=== PATIENT | female | born 1960 | race Caucasian/White ===

== ENCOUNTER 2016-10-25 09:13 | Emergency (ER) | payer BC ==
[2016-10-25] MEDS ORDERED: Acetaminophen/HYDROcodone 325-7.5 MG Tab PO ONE (09:30)
--- NOTE | 2016-10-25 09:34 | EDM.PDOC ---
ED HPI GENERAL MEDICAL PROBLEM - General Chief Complaint: General Stated Complaint: PT SPOKE WITH NURSE Time Seen by Provider: 10/25/16 09:17 - History of Present Illness INITIAL COMMENTS - FREE TEXT/NARRATIVE: HISTORY AND PHYSICAL: History of present illness: The patient is a 55-year-old female with a history of hypertension and anxiety who presents from [facility] for further evaluation of a left lower leg cellulitis. The patient was initially seen at the clinic on October 21 after she had fallen and scraped her left lower leg while walking her dog and sustained an abrasion to that region. She says this occurred over weekend, October 17. At that time she had a CBC a wound culture as well as a CRP. Patient was started on Keflex after being given Rocephin at the clinic. The patient re-presented today for checkup and discussion of lab results. On her lab tests she had a normal CRP and a WBC count of 6.2 but her platelet count was 75. The provider at the clinic was concerned about the platelet count but also concerned about the fact that the cellulitis seems to worsen and it seems to look more like a hematoma as well as a nonhealing cellulitis. The patient complains of persistent pain in the region but not in the calf itself and there is no distal neurovascular changes and no streaking up her leg. According to the patient and the provider's notes she initially had a lump on the rushing when this initially happened. The patient complains of persistent pain but has had no fevers or other systemic lanes. She has just noticed some darkish bruising at her heel that she wanted me to evaluate. Review of systems: As per history of present illness and below otherwise all systems reviewed and negative. Past medical history: As per history of present illness and as reviewed below otherwise noncontributory. Surgical history: As per history of present illness and as reviewed below otherwise noncontributory. Social history: No reported history of drug or alcohol abuse. Family history: As per history of present illness and as reviewed below otherwise noncontributory. Physical exam: Gen.: Well-developed well-nourished female who is nontoxic and vital signs of been reviewed by me. She ambulated into the ED without assistance HEENT: Atraumatic, normocephalic, negative for conjunctival pallor or scleral icterus, mucous membranes moist, throat clear, neck supple, nontender, trachea midline. Lungs: Clear to auscultation, breath sounds equal bilaterally, chest nontender. Heart: S1S2, regular rate and rhythm no overt murmurs Abdomen: Soft, nondistended, nontender. NABS Pelvis: Stable nontender. Genitourinary: Deferred. Rectal: Deferred. Extremities: Atraumatic with full range of motion of all extremities with the exception of the left lower leg where there is a visible oval area of resolving ecchymosis and erythema. The total size of this area is 20 x 11 cm it is not circumferential and there is no calf tenderness swelling or defects. There is no palpable bony deformities but there is diffuse tenderness in this area. Within the larger area there is a 13 x 9 cm area of more raised soft tissue which is exquisitely tender but not fluctuant and feels almost like a resolving hematoma. There is some dependent ecchymosis at the heel medially consistent with the hematoma history. There is no neurovascular changes in the leg and no streaking up the leg. There is no groin adenopathy appreciated. The legs are, negative for cords or calf pain. Neurovascular unremarkable. Neuro: Awake, alert, oriented. Cranial nerves II through XII unremarkable. Cerebellum unremarkable. Motor and sensory unremarkable throughout. Exam nonfocal. Diagnostics: CBC INR x-ray of the left lower leg lactic acid soft tissue ultrasound of the leg area Therapeutics: Seth--the patient does not have an allergy she only gets nauseated or vomits with this. She tolerated the pill here well in the ED Please note that the platelet count today has improved to 99 from 75. Patient is aware of all testing results and that likely the cause of all of the redness and swelling is likely due to a hematoma which is resolving. The ultrasound does not indicate any fluid collection I've advised her to stop taking the Keflex she is on and switch to Bactrim and to follow-up with Dr. Yeung for resolution of the symptoms as well as a repeat platelet count suite. Advised on reasons to return to ER. I will give her some tramadol for home Impression: Left lower extremity hematoma/cellulitis improving Definitive disposition and diagnosis as appropriate pending reevaluation and review of above. Left Lower Leg Pain Score (Numeric/FACES): 6 - Related Data Allergies Allergy/AdvReac Type Severity Reaction Status Date / Time hydrocodone Allergy Nausea and Verified 10/25/16 09:25 Vomiting egg or chicken derived drugs Allergy Abdominal Uncoded 06/11/15 09:44 Pain Home Meds: Home Meds Aspirin [Adult Low Dose Aspirin EC] 1 tab PO DAILY 06/11/15 [History] Atenolol 1 tab PO DAILY 06/11/15 [History] ClonazePAM [KlonoPIN] 1 tab PO BID PRN 06/11/15 [History] [place]-3/DHA/Epa/Fish Oil [[place] 3 500 Softgel] 1,000 mg PO TID 06/11/15 [History ] Vit D3 & K/Berberine HCl/Hops [Ostera] 1 tab PO DAILY 06/11/15 [History] buPROPion [Wellbutrin XL] 150 mg PO DAILY 10/25/16 [History] Past Medical History HEENT History: Reports: None Other HEENT History: wears glasses Cardiovascular History: Reports: Stents Respiratory History: Reports: None Gastrointestinal History: Reports: GERD Genitourinary History: Reports: None 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: Reports: 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 Musculoskeletal History: Reports: Fibromyalgia Neurological History: Reports: None Psychiatric History: Reports: Anxiety, Depression Endocrine/Metabolic History: Reports: None Hematologic History: Reports: None Immunologic History: Reports: None Oncologic (Cancer) History: Reports: None Dermatologic History: Reports: None - Infectious Disease History Infectious Disease History: Reports: Chicken Pox - Past Surgical History Head Surgeries/Procedures: Reports: None Cardiovascular Surgical History: Reports: Coronary Artery Stent, Other (See Below) Respiratory Surgical History: Reports: None GI Surgical History: Reports: Appendectomy Female Surgical History: Reports: Hysterectomy Endocrine Surgical History: Reports: None Neurological Surgical History: Reports: None Musculoskeletal Surgical History: Reports: Carpal Tunnel, Other (See Below) Oncologic Surgical History: Reports: None Dermatological Surgical History: Reports: None Social & Family History - Family History Family Medical History: Noncontributory - Tobacco Use Smoking Status *Q: Current Every Day Smoker Years of Tobacco use: 40 Packs/Tins Daily: 1 - Caffeine Use Caffeine Use: Reports: Coffee - Alcohol Use Days Per Week of Alcohol Use: 7 Number of Drinks Per Day: 1 Total Drinks Per Week: 7 - Recreational Drug Use Recreational Drug Use: No ED ROS GENERAL - Review of Systems Review Of Systems: ROS reveals no pertinent complaints other than HPI. ED EXAM, GENERAL - Physical Exam Exam: See Below (See dictation) Course - Vital Signs Last Recorded V/S: Last Vital Signs Temp 36.7 C 10/25/16 09:19 Pulse 78 10/25/16 09:19 Resp 18 10/25/16 09:19 BP 187/101 H 10/25/16 09:19 Pulse Ox 100 10/25/16 09:19 - Orders/Labs/Meds Labs: Laboratory Tests 10/25/16 10/25/16 10/25/16 Range/Units 09:41 09:41 09:41 WBC 4.39 (4.0-11.0) K/uL RBC 4.18 L (4.30-5.90) M/uL Hgb 14.5 (12.0-16.0) g/dL Hct 39.9 (36.0-46.0) % MCV 95.5 (80.0-98.0) fL MCH 34.7 H (27.0-32.0) pg MCHC 36.3 (31.0-37.0) g/dL RDW Std Deviation 41.2 (28.0-62.0) fl RDW Coeff of Haley 12 (11.0-15.0) % Plt Count 99 L (150-400) K/uL MPV 10.50 (7.40-12.00) fL Neut % (Auto) 57.4 (48.0-80.0) % Lymph % (Auto) 35.8 (16.0-40.0) % [place] % (Auto) 5.0 (0.0-15.0) % Eos % (Auto) 1.1 (0.0-7.0) % Baso % (Auto) 0.7 (0.0-1.5) % Neut # (Auto) 2.5 (1.4-5.7) K/uL Lymph # (Auto) 1.6 (0.6-2.4) K/uL [place] # (Auto) 0.2 (0.0-0.8) K/uL Eos # (Auto) 0.1 (0.0-0.7) K/uL Baso # (Auto) 0.0 (0.0-0.1) K/uL Nucleated RBC % 0.0 /100WBC Nucleated RBCs # 0 K/uL INR 1.18 H (0.86-1.11) Lactate 1.2 (0.20-2.00) mmol/L Meds: Medications Discontinued Medications Generic Name Dose Route Start Last Admin Trade Name Poncho PRN Reason Stop Dose Admin Hydrocodone Bitart/Acetaminophen 1 tab 10/25/16 09:30 10/25/16 09:35 Seth 325-7.5 Mg PO 10/25/16 09:31 1 tab ONETIME ONE Administration Departure - Departure Time of Disposition: 10:56 Disposition: Home, Self-Care 01 Condition: Good Clinical Impression: Left leg cellulitis Contusion of left leg Qualifiers: Encounter type: initial encounter Qualified Code(s): S80.12XA - Contusion of left lower leg, initial encounter - Discharge Information Referrals: London Yeung MD [Primary Care Provider] - Forms: ED Department Discharge Additional Instructions: The following information is given to patients seen in the emergency department who are being discharged to home. This information is to outline your options for follow-up care. We provide all patients seen in our emergency department with a follow-up referral. The need for follow-up, as well as the timing and circumstances, are variable depending upon the specifics of your emergency department visit. If you don't have a primary care physician on staff, we will provide you with a referral. We always advise you to contact your personal physician following an emergency department visit to inform them of the circumstance of the visit and for follow-up with them and/or the need for any referrals to a consulting specialist. The emergency department will also refer you to a specialist when appropriate. This referral assures that you have the opportunity for followup care with a specialist. All of these measure are taken in an effort to provide you with optimal care, which includes your followup. Under all circumstances we always encourage you to contact your private physician who remains a resource for coordinating your care. When calling for followup care, please make the office aware that this follow-up is from your recent emergency room visit. If for any reason you are refused follow-up, please contact the [facility] emergency department at and ask to speak to the emergency department charge nurse. [address] [place] [address] Please call and follow-up with Dr. Yeung in the clinic as we discussed to recheck your progress as well as to repeat a platelet count. Please return to ER as needed and as discussed. Please stop taking the Keflex you're on and switch to Bactrim as prescribed and use the tramadol as needed for pain. Elevate and ice as needed
--- NOTE | 2016-10-25 10:23 | CR ---
EXAMINATION: Left tibia and fibula HISTORY: Rule out gas COMPARISON: None TECHNIQUE: 2 views FINDINGS/IMPRESSION: There is no acute osseous abnormality, dislocation, or fracture. Bone mineraliza tion and joint spaces appear grossly preserved. No subcutaneous gas identified.
--- NOTE | 2016-10-25 10:30 | US ---
EXAMINATION: Nonvascular left lower extremity ultrasound HISTORY: Evaluate for abscess COMPARISON: Radiograph from the same day TECHNIQUE: Grayscale and color Doppler images obtained within the region of concern. FINDINGS: There is mild skin thickening with underlying subcutaneous edema. No organized fluid collec tion or abscess. No significantly increased color Doppler flow. IMPRESSION: 1. Mild subcutaneous edema otherwise unremarkable ultrasound.
[2016-10-25 11:17] VITALS: BP 101/59
== END 2016-10-25 11:16 | disposition home or self-care (01) ==
LOC: MW.ED 09:13
DX: S80.12XA Contusion of left lower leg, initial encounter (principal); L03.116 Cellulitis of left lower limb; I10 Essential (primary) hypertension; F41.9 Anxiety disorder, unspecified; K21.9 Gastro-esophageal reflux disease without esophagitis; F17.210 Nicotine dependence, cigarettes, uncomplicated; Z90.710 Acquired absence of both cervix and uterus; Z88.5 Allergy status to narcotic agent; Z79.82 Long term (current) use of aspirin; X58.XXXA Exposure to other specified factors, initial encounter
CPT/HCPCS: 36415; 73590; 76881; 83605; 85025; 85610; 99283; A9270

== ENCOUNTER 2017-08-23 01:25 | Emergency (ER) | payer BC ==
[2017-08-23] MEDS ORDERED: Sodium Chloride 0.9% 10 ML Syringe FLUSH PRN (01:43)
[2017-08-23] MEDS ORDERED: Sodium Chloride 0.9% 2.5 ML Syringe FLUSH PRN (01:43)
--- NOTE | 2017-08-23 01:49 | EDM.PDOC ---
ED HPI GENERAL MEDICAL PROBLEM - General Chief Complaint: Chest Pain Stated Complaint: CHEST PAINS Time Seen by Provider: 08/23/17 01:47 - History of Present Illness INITIAL COMMENTS - FREE TEXT/NARRATIVE: HISTORY AND PHYSICAL: History of present illness: Patient is a 56-year-old white female with an extensive cardiac history including reported stent 4 who presents with a concern of chest pain over the last several weeks she states she's had swollen ankles recently and has discomfort in her chest and shoulders this is vaguely described she is here at the request of her daughter she was seen by her private medical doctor with ulcer history this afternoon who did some blood work and discharge her to home. Review of systems: As per history of present illness and below otherwise all systems reviewed and negative. Past medical history: As per history of present illness and as reviewed below otherwise noncontributory. Surgical history: As per history of present illness and as reviewed below otherwise noncontributory. Social history: No reported history of drug or alcohol abuse. Family history: As per history of present illness and as reviewed below otherwise noncontributory. Physical exam: HEENT: Atraumatic, normocephalic, pupils reactive, negative for conjunctival pallor or scleral icterus, mucous membranes moist, throat clear, neck supple, nontender, trachea midline. Lungs: Clear to auscultation, breath sounds equal bilaterally, chest nontender. Heart: S1S2, regular, negative for clicks, rubs, or JVD. Abdomen: Soft, nondistended, nontender. Negative for masses or hepatosplenomegaly. Negative for costovertebral tenderness. Pelvis: Stable nontender. Genitourinary: Deferred. Rectal: Deferred. Extremities: Atraumatic, negative for cords or calf pain. Neurovascular unremarkable. Neuro: Awake, alert, anxious,oriented. Cranial nerves II through XII unremarkable. Cerebellum unremarkable. Motor and sensory unremarkable throughout. Exam nonfocal. Diagnostics: CBC CMP troponin PT/INR BNP chest x-ray EKG Therapeutics: IV O2 monitor Impression: #1 chest pain #2 anxiety #3 history of coronary artery disease Definitive disposition and diagnosis as appropriate pending reevaluation and review of above. Shoulder/Neck/YOANNA Chest Pain Score (Numeric/FACES): 3 - Related Data Allergies Allergy/AdvReac Type Severity Reaction Status Date / Time hydrocodone Allergy Nausea and Verified 08/23/17 01:33 Vomiting egg or chicken derived drugs Allergy Abdominal Uncoded 08/23/17 01:33 Pain Home Meds: Home Meds Aspirin [Adult Low Dose Aspirin EC] 1 tab PO DAILY 06/11/15 [History] Atenolol 1 tab PO DAILY 06/11/15 [History] ClonazePAM [KlonoPIN] 1 tab PO BID PRN 06/11/15 [History] [place]-3/DHA/Epa/Fish Oil [[place] 3 500 Softgel] 1,000 mg PO TID 06/11/15 [History ] Vit D3 & K/Berberine HCl/Hops [Ostera] 1 tab PO DAILY 06/11/15 [History] buPROPion [Wellbutrin XL] 150 mg PO DAILY 10/25/16 [History] Past Medical History HEENT History: Reports: None Other HEENT History: wears glasses Cardiovascular History: Reports: Stents Respiratory History: Reports: None Gastrointestinal History: Reports: GERD Genitourinary History: Reports: None 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 Musculoskeletal History: Reports: Fibromyalgia Neurological History: Reports: None Psychiatric History: Reports: Anxiety, Depression Endocrine/Metabolic History: Reports: None Hematologic History: Reports: None Immunologic History: Reports: None Oncologic (Cancer) History: Reports: None Dermatologic History: Reports: None - Infectious Disease History Infectious Disease History: Reports: Chicken Pox - Past Surgical History Head Surgeries/Procedures: Reports: None Cardiovascular Surgical History: Reports: Coronary Artery Stent, Other (See Below) Respiratory Surgical History: Reports: None GI Surgical History: Reports: Appendectomy Female Surgical History: Reports: Hysterectomy Endocrine Surgical History: Reports: None Neurological Surgical History: Reports: None Musculoskeletal Surgical History: Reports: Carpal Tunnel, Other (See Below) Oncologic Surgical History: Reports: None Dermatological Surgical History: Reports: None Social & Family History - Family History Family Medical History: Noncontributory - Tobacco Use Smoking Status *Q: Former Smoker Used Tobacco, but Quit: Yes Month/Year Tobacco Last Used: 08/30 - Caffeine Use Caffeine Use: Reports: Coffee - Alcohol Use Days Per Week of Alcohol Use: 7 Number of Drinks Per Day: 2 Total Drinks Per Week: 14 - Recreational Drug Use Recreational Drug Use: No ED ROS GENERAL - Review of Systems Review Of Systems: ROS reveals no pertinent complaints other than HPI. ED EXAM, GENERAL - Physical Exam Exam: See Below (Dictation) Course - Vital Signs Text/Narrative:: Patient's emergency room records has been unremarkable I discussed with patient transfer to [facility] might of her extensive history she states she'll go by private vehicle with her and offered her admission also here for observation she declines she will be discharged home with directions to follow- up at [facility] as discussed. Patient alert and oriented 3 understands all the risks and benefits and remains adamant of discharge to home Last Recorded V/S: Last Vital Signs Temp 36.9 C 08/23/17 01:28 Pulse 108 H 08/23/17 03:33 Resp 16 08/23/17 03:33 BP 117/63 08/23/17 03:33 Pulse Ox 98 08/23/17 01:28 - Orders/Labs/Meds Orders: Active Orders 24 hr Category Date Time Status Cardiac Monitoring [RC] . DIRECTED Care 08/23/17 01:43 Active EKG Documentation Completion [RC] STAT Care 08/23/17 01:44 Active Oxygen Therapy [RC] ASDIRECTED Care 08/23/17 01:43 Active Pulse Oximetry [RC] ASDIRECTED Care 08/23/17 01:43 Active Chest 1V Frontal [CR] Stat Exams 08/23/17 01:43 Taken Sodium Chloride 0.9% [Normal Saline] 1,000 ml Med 08/23/17 02:30 Active IV ASDIRECTED Sodium Chloride 0.9% [Saline Flush] Med 08/23/17 01:43 Active 10 ml FLUSH ASDIRECTED PRN Sodium Chloride 0.9% [Saline Flush] Med 08/23/17 01:43 Active 2.5 ml FLUSH ASDIRECTED PRN Saline Lock Insert [OM.PC] Stat Oth 08/23/17 01:43 Ordered Medication Orders Sodium Chloride (Normal Saline) 1,000 mls @ 999 mls/hr IV ASDIRECTED BRANDO Last Admin: 08/23/17 02:34 Dose: 999 mls/hr Sodium Chloride (Saline Flush) 10 ml FLUSH ASDIRECTED PRN PRN Reason: Keep Vein Open Last Admin: 08/23/17 02:34 Dose: 10 ml Sodium Chloride (Saline Flush) 2.5 ml FLUSH ASDIRECTED PRN PRN Reason: Keep Vein Open Last Admin: 08/23/17 02:34 Dose: 2.5 ml Labs: Laboratory Tests 08/23/17 08/23/17 08/23/17 Range/Units 01:40 01:40 01:40 WBC 4.51 (4.0-11.0) K/uL RBC 3.29 L (4.30-5.90) M/uL Hgb 8.5 L (12.0-16.0) g/dL Hct 26.5 L (36.0-46.0) % MCV 80.5 (80.0-98.0) fL MCH 25.8 L (27.0-32.0) pg MCHC 32.1 (31.0-37.0) g/dL RDW Std Deviation 40.9 (28.0-62.0) fl RDW Coeff of Haley 14 (11.0-15.0) % Plt Count 109 L (150-400) K/uL MPV 10.40 (7.40-12.00) fL Neut % (Auto) 58.0 (48.0-80.0) % Lymph % (Auto) 30.4 (16.0-40.0) % [place] % (Auto) 9.8 (0.0-15.0) % Eos % (Auto) 1.1 (0.0-7.0) % Baso % (Auto) 0.7 (0.0-1.5) % Neut # (Auto) 2.6 (1.4-5.7) K/uL Lymph # (Auto) 1.4 (0.6-2.4) K/uL [place] # (Auto) 0.4 (0.0-0.8) K/uL Eos # (Auto) 0.1 (0.0-0.7) K/uL Baso # (Auto) 0.0 (0.0-0.1) K/uL INR 1.17 Sodium 134 L (136-145) mmol/L Potassium 3.2 L (3.5-5.1) mmol/L Chloride 95 L (98-107) mmol/L Carbon Dioxide 27.0 (21.0-32.0) mmol/L BUN 4 L (7.0-18.0) mg/dL Creatinine 0.8 (0.6-1.0) mg/dL Est Cr Clr Drug Dosing 81.10 mL/min Estimated GFR (MDRD) > 60.0 ml/min Glucose 192 H (74-106) mg/dL Calcium 9.0 (8.5-10.1) mg/dL Total Bilirubin 0.4 (0.2-1.0) mg/dL AST 62 H (15-37) IU/L ALT 32 (14-63) IU/L Alkaline Phosphatase 97 (46-116) U/L CK-MB (CK-2) 1.5 (0-3.6) ng/mL Troponin I < 0.050 (0.000-0.056) ng/mL B-Natriuretic Peptide (<100) PG/ML Total Protein 7.5 (6.4-8.2) g/dL Albumin 3.8 (3.4-5.0) g/dL Globulin 3.7 H (2.0-3.5) g/dL Albumin/Globulin Ratio 1.0 L (1.3-2.8) 08/23/17 Range/Units 01:40 WBC (4.0-11.0) K/uL RBC (4.30-5.90) M/uL Hgb (12.0-16.0) g/dL Hct (36.0-46.0) % MCV (80.0-98.0) fL MCH (27.0-32.0) pg MCHC (31.0-37.0) g/dL RDW Std Deviation (28.0-62.0) fl RDW Coeff of Haley (11.0-15.0) % Plt Count (150-400) K/uL MPV (7.40-12.00) fL Neut % (Auto) (48.0-80.0) % Lymph % (Auto) (16.0-40.0) % [place] % (Auto) (0.0-15.0) % Eos % (Auto) (0.0-7.0) % Baso % (Auto) (0.0-1.5) % Neut # (Auto) (1.4-5.7) K/uL Lymph # (Auto) (0.6-2.4) K/uL [place] # (Auto) (0.0-0.8) K/uL Eos # (Auto) (0.0-0.7) K/uL Baso # (Auto) (0.0-0.1) K/uL INR Sodium (136-145) mmol/L Potassium (3.5-5.1) mmol/L Chloride (98-107) mmol/L Carbon Dioxide (21.0-32.0) mmol/L BUN (7.0-18.0) mg/dL Creatinine (0.6-1.0) mg/dL Est Cr Clr Drug Dosing mL/min Estimated GFR (MDRD) ml/min Glucose (74-106) mg/dL Calcium (8.5-10.1) mg/dL Total Bilirubin (0.2-1.0) mg/dL AST (15-37) IU/L ALT (14-63) IU/L Alkaline Phosphatase (46-116) U/L CK-MB (CK-2) (0-3.6) ng/mL Troponin I (0.000-0.056) ng/mL B-Natriuretic Peptide 86 (<100) PG/ML Total Protein (6.4-8.2) g/dL Albumin (3.4-5.0) g/dL Globulin (2.0-3.5) g/dL Albumin/Globulin Ratio (1.3-2.8) Meds: Medications Generic Name Dose Route Start Last Admin Trade Name Freq PRN Reason Stop Dose Admin Sodium Chloride 1,000 mls @ 999 mls/hr 08/23/17 02:30 08/23/17 02:34 Normal Saline IV 999 mls/hr ASDIRECTED BRANDO Administration Sodium Chloride 10 ml 08/23/17 01:43 08/23/17 02:34 Saline Flush FLUSH 10 ml ASDIRECTED PRN Administration Keep Vein Open Sodium Chloride 2.5 ml 08/23/17 01:43 08/23/17 02:34 Saline Flush FLUSH 2.5 ml ASDIRECTED PRN Administration Keep Vein Open Discontinued Medications Generic Name Dose Route Start Last Admin Trade Name Freq PRN Reason Stop Dose Admin Lorazepam 1 mg 08/23/17 02:29 08/23/17 02:37 Ativan IVPUSH 08/23/17 02:30 1 mg ONETIME ONE Administration Departure - Departure Time of Disposition: 04:29 Disposition: Home, Self-Care 01 Condition: Good Clinical Impression: Chest pain - Discharge Information Forms: ED Department Discharge Additional Instructions: The following information is given to patients seen in the emergency department who are being discharged to home. This information is to outline your options for follow-up care. We provide all patients seen in our emergency department with a follow-up referral. The need for follow-up, as well as the timing and circumstances, are variable depending upon the specifics of your emergency department visit. If you don't have a primary care physician on staff, we will provide you with a referral. We always advise you to contact your personal physician following an emergency department visit to inform them of the circumstance of the visit and for follow-up with them and/or the need for any referrals to a consulting specialist. The emergency department will also refer you to a specialist when appropriate. This referral assures that you have the opportunity for followup care with a specialist. All of these measure are taken in an effort to provide you with optimal care, which includes your followup. Under all circumstances we always encourage you to contact your private physician who remains a resource for coordinating your care. When calling for followup care, please make the office aware that this follow-up is from your recent emergency room visit. If for any reason you are refused follow-up, please contact the [facility] emergency department at and asked to speak to the emergency department charge nurse. Follow-up [facility]/cardiology as discussed return as needed as discussed - My Orders Last 24 Hours: My Active Orders 08/23/17 01:43 Cardiac Monitoring [RC] . DIRECTED Oxygen Therapy [RC] ASDIRECTED Pulse Oximetry [RC] ASDIRECTED Chest 1V Frontal [CR] Stat Sodium Chloride 0.9% [Saline Flush] 10 ml FLUSH ASDIRECTED PRN Sodium Chloride 0.9% [Saline Flush] 2.5 ml FLUSH ASDIRECTED PRN Saline Lock Insert [OM.PC] Stat 08/23/17 01:44 EKG Documentation Completion [RC] STAT 08/23/17 02:30 Sodium Chloride 0.9% [Normal Saline] 1,000 ml IV ASDIRECTED - Assessment/Plan Last 24 Hours: My Active Orders 08/23/17 01:43 Cardiac Monitoring [RC] . DIRECTED Oxygen Therapy [RC] ASDIRECTED Pulse Oximetry [RC] ASDIRECTED Chest 1V Frontal [CR] Stat Sodium Chloride 0.9% [Saline Flush] 10 ml FLUSH ASDIRECTED PRN Sodium Chloride 0.9% [Saline Flush] 2.5 ml FLUSH ASDIRECTED PRN Saline Lock Insert [OM.PC] Stat 08/23/17 01:44 EKG Documentation Completion [RC] STAT 08/23/17 02:30 Sodium Chloride 0.9% [Normal Saline] 1,000 ml IV ASDIRECTED
[2017-08-23 02:21] LABS: CHLORIDE,CL 95 mmol/L (98-107); SODIUM,NA 134 mmol/L (136-145)
[2017-08-23] MEDS ORDERED: LORazepam 2 MG/ML SDV IVPUSH ONE (02:29)
[2017-08-23] MEDS ORDERED: Sodium Chloride 0.9% 1,000 ML IV SCH (02:30)
[2017-08-23 04:57] VITALS: BP 111/54
--- NOTE | 2017-08-23 16:50 | CR ---
EXAM DATE: 08/23/17 PATIENT'S AGE: 56 Patient: LEV CORDOVA Facility: [place], [place] Site . Site : [id number] Study: XRay Chest [id number] 2:16:50 AM Ordering Physician: Tavo Toure Final Report: INDICATION: CHEST PAIN CHEST, ONE VIEW An AP radiograph of the chest was performed. Comparison: 12/25/2015. The lungs appear clear and no pleural effusions are identified. The cardiomediastinal silhouette and pulmonary vasculature appear normal, as do the visualized bones. IMPRESSION: No acute intrathoracic abnormality identified. JENNIFER KILLIAN MD [employer] Dictated by: Frank Killian MD @ 08/23/2017 02:23:13 (Electronic Signature) Report Signed by Proxy. [facility]
== END 2017-08-23 04:50 | disposition home or self-care (01) ==
LOC: MW.ED 01:25
DX: R07.9 Chest pain, unspecified (principal); F41.9 Anxiety disorder, unspecified; I25.10 Atherosclerotic heart disease of native coronary artery without angina pectoris; Z91.012 Allergy to eggs; Z88.5 Allergy status to narcotic agent; Z79.82 Long term (current) use of aspirin; Z79.899 Other long term (current) drug therapy; Z87.891 Personal history of nicotine dependence
CPT/HCPCS: 36415; 71045; 80053; 82553; 83880; 84484; 85025; 85610; 93005; 96361; 96374; 99285; J2060; J7040

== ENCOUNTER 2019-02-04 16:01 | Observation (INO) | payer BC ==
[2019-02-04] MEDS ORDERED: Sodium Chloride 0.9% 1,000 ML IV ONE ×2 (16:16→17:26)
[2019-02-04] MEDS ORDERED: guaiFENesin 600 MG Tab.ER PO ONE ×2 (16:18→16:30)
--- NOTE | 2019-02-04 16:26 | EDM.PDOC ---
ED HPI GENERAL MEDICAL PROBLEM - General Chief Complaint: Respiratory Problem Stated Complaint: FLU Time Seen by Provider: 02/04/19 16:21 Source of Information: Reports: Patient History Limitations: Reports: No Limitations - History of Present Illness Onset: Gradual (flu type symptoms for 5 days.) Duration: Waxing/Waning (for 5 days.) Location: Reports: Chest (coughing with very little sputum production.) Severity: Moderate Improves with: Reports: Other (placed on Tamiflu 4 days ago but is not helping. She states that her daughter has influ) Worsens with: Reports: Breathing (and coughing.) Associated Symptoms: Reports: Cough, Fever/Chills (mild fever.), Loss of Appetite, Malaise. Denies: Nausea/Vomiting - Related Data Allergies Allergy/AdvReac Type Severity Reaction Status Date / Time hydrocodone Allergy Nausea and Verified 02/04/19 16:09 Vomiting egg or chicken derived drugs Allergy Abdominal Uncoded 02/04/19 16:09 Pain Home Meds: Home Meds ClonazePAM [KlonoPIN] 1 tab PO BID PRN 06/11/15 [History] atenoloL [Atenolol] 1 tab PO DAILY 06/11/15 [History] buPROPion [Wellbutrin XL] 150 mg PO DAILY 10/25/16 [History] atorvaSTATin Calcium [Atorvastatin Calcium] 20 mg DAILY 12/27/17 [History] Past Medical History HEENT History: Reports: None Other HEENT History: wears glasses Cardiovascular History: Reports: Stents Respiratory History: Reports: None Gastrointestinal History: Reports: GERD Genitourinary History: Reports: None 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 Musculoskeletal History: Reports: Fibromyalgia Neurological History: Reports: None Psychiatric History: Reports: Anxiety, Depression Endocrine/Metabolic History: Reports: None Hematologic History: Reports: None Immunologic History: Reports: None Oncologic (Cancer) History: Reports: None Dermatologic History: Reports: None - Infectious Disease History Infectious Disease History: Reports: Chicken Pox - Past Surgical History Head Surgeries/Procedures: Reports: None Cardiovascular Surgical History: Reports: Coronary Artery Stent, Other (See Below) Respiratory Surgical History: Reports: None GI Surgical History: Reports: Appendectomy Female Surgical History: Reports: Hysterectomy Endocrine Surgical History: Reports: None Neurological Surgical History: Reports: None Musculoskeletal Surgical History: Reports: Carpal Tunnel, Other (See Below) Oncologic Surgical History: Reports: None Dermatological Surgical History: Reports: None Social & Family History - Family History Family Medical History: Noncontributory - Tobacco Use Smoking Status *Q: Current Every Day Smoker Years of Tobacco use: 47 Packs/Tins Daily: 1 - Caffeine Use Caffeine Use: Reports: None - Recreational Drug Use Recreational Drug Use: No ED ROS GENERAL - Review of Systems Review Of Systems: See Below Constitutional: Reports: Fever, Weakness, Fatigue, Diaphoresis (mild sweating.) . Denies: Chills, Night Sweats HEENT: Reports: Rhinitis. Denies: Ear Discharge, Ear Pain, Throat Pain, Throat Swelling Respiratory: Reports: Shortness of Breath (mild), Cough (chronic cough for 5-6 days.). Denies: Wheezing, Pleuritic Chest Pain Cardiovascular: Reports: No Symptoms, Lightheadedness. Denies: Syncope Endocrine: Reports: No Symptoms GI/Abdominal: Reports: No Symptoms : Reports: No Symptoms Musculoskeletal: Reports: Other (joint and muscle aches.) Skin: Reports: No Symptoms Neurological: Reports: No Symptoms Psychiatric: Reports: No Symptoms Hematologic/Lymphatic: Reports: No Symptoms Immunologic: Reports: No Symptoms ED EXAM, GENERAL - Physical Exam Exam: See Below Free Text/Narrative:: This 58 year old female is admitted to the ED with her with a chief complaint of increasing coughing and "flu type" symptoms. She states that her daughter was treated for confirmed influenza A and B about one week ago and was placed on Tamiflu 75mg bid. She states that her and her was also given Tamiflu but were not seen in the ED. Exam Limited By: No Limitations General Appearance: Alert, Lethargic, Mild Distress Eye Exam: Bilateral Eye: Normal Fundi, Normal Inspection, PERRL Ears: Normal External Exam, Normal Canal, Hearing Grossly Normal, Normal TMs Ear Exam: Bilateral Ear: Auricle Normal, Canal Normal, TM normal Nose: Clear Rhinorrhea, Other (mild nasal congestion.) Throat/Mouth: Normal Teeth, Normal Gums, Normal Oropharynx, No Airway Compromise , Other (mild to moderate laryngitis noted.). No: Dysphagia Head: Atraumatic, Normocephalic. No: Facial Swelling, Sinus Tenderness Neck: Normal Inspection, Supple, Non-Tender, Full Range of Motion. No: Lymphadenopathy (L), Lymphadenopathy (R) Respiratory/Chest: No Respiratory Distress, Crackles (very mild crackles noted in the right base.), Rhonchi (in both mid chest areas.). No: Rales, Wheezing Cardiovascular: Normal Peripheral Pulses, Regular Rate, Rhythm, No Edema, No Gallop, No JVD, No Murmur, No Rub Peripheral Pulses: 3+: Carotid (L), Radial (L), Radial (R), Dorsalis Pedis (L), Dorsalis Pedis (R), 4+: Carotid (R) GI/Abdominal: Normal Bowel Sounds, Soft, Non-Tender, No Organomegaly, No Distention, No Abnormal Bruit, No Mass (Female) Exam: Deferred Rectal (Female) Exam: Deferred Back Exam: Normal Inspection, Full Range of Motion, NT Extremities: Normal Inspection, Normal Range of Motion, Non-Tender, Normal Capillary Refill, No Pedal Edema Neurological: Alert, Oriented, CN II-XII Intact, Normal Cognition, Normal Gait, Normal Reflexes, No Motor/Sensory Deficits Psychiatric: Normal Affect, Normal Mood Skin Exam: Warm, Dry, Intact, Normal Color, No Rash Lymphatic: No Adenopathy Course - Vital Signs Text/Narrative:: I discussed this case with Dr. Fleming at 5:35PM. I reviewed all of her diagnostic test which included a sodium of 120, a chest x-ray which reveals pneumonia and influ B positive. I discussed the need for admission with the patient and she agrees with the admission. She will be admitted. Last Recorded V/S: Last Vital Signs Temp 97.2 F 02/04/19 16:11 Pulse 70 02/04/19 16:11 Resp 17 02/04/19 16:11 BP 104/62 02/04/19 16:11 Pulse Ox 96 02/04/19 16:11 - Orders/Labs/Meds Orders: Active Orders 24 hr Category Date Time Status Admission Status [Patient Status] [ADT] Stat ADT 02/04/19 17:40 Ordered Azithromycin [Zithromax] 500 mg Med 02/04/19 17:45 Ordered Sodium Chloride 0.9% [Normal Saline (AdvBag)] 250 ml IV ONETIME Sodium Chloride 0.9% [Normal Saline] 1,000 ml Med 02/04/19 16:16 Active IV .Bolus Sodium Chloride 0.9% [Normal Saline] 1,000 ml Med 02/04/19 17:26 Active IV ONETIME cefTRIAXone [Rocephin] 1 gm Med 02/04/19 17:38 Ordered Sodium Chloride 0.9% [Normal Saline] 50 ml IV ONETIME Medication Orders Sodium Chloride (Normal Saline) 1,000 mls @ 1,000 drops/hr IV .Bolus ONE Stop: 02/05/19 07:15 Last Admin: 02/04/19 16:35 Dose: 1,000 drops/hr Sodium Chloride (Normal Saline) 1,000 mls @ 999 mls/hr IV ONETIME ONE Stop: 02/04/19 18:26 Last Admin: 02/04/19 17:40 Dose: 999 mls/hr Ceftriaxone Sodium 1 gm/ (Sodium Chloride) 50 mls @ 100 mls/hr IV ONETIME ONE Stop: 02/04/19 18:07 Azithromycin 500 mg/ Sodium (Chloride) 250 mls @ 250 mls/hr IV ONETIME BRANDO Labs: Laboratory Tests 02/04/19 02/04/19 Range/Units 16:33 16:33 WBC 6.69 (4.0-11.0) K/uL RBC 4.45 (4.30-5.90) M/uL Hgb 14.5 (12.0-16.0) g/dL Hct 39.9 (36.0-46.0) % MCV 89.7 (80.0-98.0) fL MCH 32.6 H (27.0-32.0) pg MCHC 36.3 (31.0-37.0) g/dL RDW Std Deviation 41.4 (28.0-62.0) fl RDW Coeff of Haley 13 (11.0-15.0) % Plt Count 93 L (150-400) K/uL MPV 12.70 H (7.40-12.00) fL Neut % (Auto) 72.4 (48.0-80.0) % Lymph % (Auto) 12.1 L (16.0-40.0) % [place] % (Auto) 14.8 (0.0-15.0) % Eos % (Auto) 0.1 (0.0-7.0) % Baso % (Auto) 0.6 (0.0-1.5) % Neut # (Auto) 4.8 (1.4-5.7) K/uL Lymph # (Auto) 0.8 (0.6-2.4) K/uL [place] # (Auto) 1.0 H (0.0-0.8) K/uL Eos # (Auto) 0.0 (0.0-0.7) K/uL Baso # (Auto) 0.0 (0.0-0.1) K/uL Nucleated RBC % 0.0 /100WBC Nucleated RBCs # 0 K/uL Sodium 120 L (136-145) mmol/L Potassium 3.1 L (3.5-5.1) mmol/L Chloride 82 L (98-107) mmol/L Carbon Dioxide 26.3 (21.0-32.0) mmol/L BUN 14 (7.0-18.0) mg/dL Creatinine 1.0 (0.6-1.0) mg/dL Est Cr Clr Drug Dosing 58.47 mL/min Estimated GFR (MDRD) 57.4 ml/min Glucose 112 H (74-106) mg/dL Calcium 8.7 (8.5-10.1) mg/dL Total Bilirubin 3.0 H (0.2-1.0) mg/dL AST 81 H (15-37) IU/L ALT 47 (14-63) IU/L Alkaline Phosphatase 163 H (46-116) U/L Total Protein 7.6 (6.4-8.2) g/dL Albumin 3.6 (3.4-5.0) g/dL Globulin 4.0 (2.6-4.0) g/dL Albumin/Globulin Ratio 0.9 (0.9-1.6) Meds: Medications Generic Name Dose Route Start Last Admin Trade Name Freq PRN Reason Stop Dose Admin Sodium Chloride 1,000 mls @ 1,000 drops/hr 02/04/19 16:16 02/04/19 16:35 Normal Saline IV 02/05/19 07:15 1,000 drops/hr .Bolus ONE Administration Sodium Chloride 1,000 mls @ 999 mls/hr 02/04/19 17:26 02/04/19 17:40 Normal Saline IV 02/04/19 18:26 999 mls/hr ONETIME ONE Administration Ceftriaxone Sodium 1 gm/ 50 mls @ 100 mls/hr 02/04/19 17:38 Sodium Chloride IV 02/04/19 18:07 ONETIME ONE Azithromycin 500 mg/ Sodium 250 mls @ 250 mls/hr 02/04/19 17:45 Chloride IV ONETIME BRANDO Discontinued Medications Generic Name Dose Route Start Last Admin Trade Name Freq PRN Reason Stop Dose Admin Guaifenesin 1,200 mg 02/04/19 16:18 02/04/19 16:34 Mucinex PO 02/04/19 16:19 1,200 mg ONETIME ONE Administration Guaifenesin 1,200 mg 02/04/19 16:30 02/04/19 16:55 Mucinex PO 02/04/19 16:31 Not Given ONETIME ONE Departure - Departure Time of Disposition: 17:45 Disposition: Admitted As Inpatient 68 Condition: Fair Clinical Impression: Influenza B, Hyponatremia Pneumonia Qualifiers: Pneumonia type: due to unspecified organism Laterality: bilateral Lung location : lower lobe of lung Qualified Code(s): J18.9 - Pneumonia, unspecified organism - Discharge Information *PRESCRIPTION DRUG MONITORING PROGRAM REVIEWED*: Yes *COPY OF PRESCRIPTION DRUG MONITORING REPORT IN PATIENT GISEL: Yes Sepsis Event Note - Evaluation Sepsis Screening Result: No Definite Risk - Focused Exam Vital Signs: Vital Signs Temp Pulse Resp BP Pulse Ox 02/04/19 16:11 97.2 F 70 17 104/62 96 Date Exam was Performed: 02/04/19 Time Exam was Performed: 17:44 - My Orders Last 24 Hours: My Active Orders 02/04/19 16:16 Sodium Chloride 0.9% [Normal Saline] 1,000 ml IV .Bolus 02/04/19 17:26 Sodium Chloride 0.9% [Normal Saline] 1,000 ml IV ONETIME 02/04/19 17:38 cefTRIAXone [Rocephin] 1 gm Sodium Chloride 0.9% [Normal Saline] 50 ml IV ONETIME 02/04/19 17:40 Admission Status [Patient Status] [ADT] Stat 02/04/19 17:45 Azithromycin [Zithromax] 500 mg Sodium Chloride 0.9% [Normal Saline (AdvBag)] 250 ml IV ONETIME - Assessment/Plan Last 24 Hours: My Active Orders 02/04/19 16:16 Sodium Chloride 0.9% [Normal Saline] 1,000 ml IV .Bolus 02/04/19 17:26 Sodium Chloride 0.9% [Normal Saline] 1,000 ml IV ONETIME 02/04/19 17:38 cefTRIAXone [Rocephin] 1 gm Sodium Chloride 0.9% [Normal Saline] 50 ml IV ONETIME 02/04/19 17:40 Admission Status [Patient Status] [ADT] Stat 02/04/19 17:45 Azithromycin [Zithromax] 500 mg Sodium Chloride 0.9% [Normal Saline (AdvBag)] 250 ml IV ONETIME
--- NOTE | 2019-02-04 16:58 | CR ---
Indication: Cough. Congestion. Technique: PA and lateral views of the chest. Comparison: August 23, 2017. Findings: The heart is normal in size. Increased interstitial opacities are identified in the bilateral perihilar region. No pleural effusion or pneumothorax is identified. Impression: Increased interstitial opacities in bilateral perihilar regions, early infiltrates cannot be excluded. Dictated by Angella Evans MD @ Feb 04 2019 4:56PM Signed by Dr. Angella Evans @ Feb 04 2019 4:57PM
[2019-02-04 17:02] LABS: CARBON DIOXIDE,CO2 26.3 mmol/L (21.0-32.0); POTASSIUM,K 3.1 mmol/L (3.5-5.1)
[2019-02-04] MEDS ORDERED: cefTRIAXone 1 GM in Sodium Chloride 0.9% 50 ML IV ONE (17:38)
[2019-02-04] MEDS ORDERED: Azithromycin 500 MG in Sodium Chloride 0.9% 250 ML IV SCH (17:45)
--- NOTE | 2019-02-04 18:20 | PCM.HP.2 ---
H&P History of Present Illness - General Date of Service: 02/04/19 Admit Problem/Dx: Admission Diagnosis/Problem Admission Diagnosis/Problem Influenza due to influenza virus, type B - History of Present Illness Initial Comments - Free Text/Narative: Patient is a 58 y/o F with PMH of HTN, GI bleed who comes in with c/o flu like symptoms including rhinitis, cough, sob, fevers/chills, fatigue. She has been unable to keep anything down for last few days. symptoms started 5 days back, states her daughter was diagnosed with flu recently and family was started on Tamiflu prophylactically. Patient states Tamiflu didn't help and now her symptoms are getting worse. In the ER patient was found to be flu positive, hyponatremic with Na in 120s. Patient was also lethargic and unable to keep anything down. CXR showed interstitial opacities. received IV antibiotics in ER. Patient is being admitted for further management. Onset of Symptoms: Reports: Gradual Duration of Symptoms: Reports: Day(s):, Getting Worse Location: Reports: Generalized Quality: Reports: Ache Severity: Moderate Improves with: Reports: None Context: Reports: Sick Contact - Related Data Allergies/Adverse Reactions: Allergies Allergy/AdvReac Type Severity Reaction Status Date / Time hydrocodone Allergy Nausea and Verified 02/04/19 16:09 Vomiting egg or chicken derived drugs Allergy Abdominal Uncoded 02/04/19 16:09 Pain Home Medications: Home Meds ClonazePAM [KlonoPIN] 1 tab PO BID PRN 06/11/15 [History] atenoloL [Atenolol] 1 tab PO DAILY 06/11/15 [History] buPROPion [Wellbutrin XL] 150 mg PO DAILY 10/25/16 [History] atorvaSTATin Calcium [Atorvastatin Calcium] 20 mg DAILY 12/27/17 [History] Past Medical History HEENT History: Reports: None Other HEENT History: wears glasses Cardiovascular History: Reports: Stents Respiratory History: Reports: None Gastrointestinal History: Reports: GERD Genitourinary History: Reports: None 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 Musculoskeletal History: Reports: Fibromyalgia Neurological History: Reports: None Psychiatric History: Reports: Anxiety, Depression Endocrine/Metabolic History: Reports: None Hematologic History: Reports: None Immunologic History: Reports: None Oncologic (Cancer) History: Reports: None Dermatologic History: Reports: None - Infectious Disease History Infectious Disease History: Reports: Chicken Pox - Past Surgical History Head Surgeries/Procedures: Reports: None Cardiovascular Surgical History: Reports: Coronary Artery Stent, Other (See Below) Respiratory Surgical History: Reports: None GI Surgical History: Reports: Appendectomy Female Surgical History: Reports: Hysterectomy Endocrine Surgical History: Reports: None Neurological Surgical History: Reports: None Musculoskeletal Surgical History: Reports: Carpal Tunnel, Other (See Below) Oncologic Surgical History: Reports: None Dermatological Surgical History: Reports: None Social & Family History - Family History Family Medical History: Noncontributory - Tobacco Use Smoking Status *Q: Current Every Day Smoker Years of Tobacco use: 47 Packs/Tins Daily: 1 - Caffeine Use Caffeine Use: Reports: None - Recreational Drug Use Recreational Drug Use: No H&P Review of Systems - Review of Systems: General: Reports: Fever, Chills, Malaise, Weakness, Fatigue, Diaphoresis, Decreased Appetite. Denies: Weight Loss, Weight Gain HEENT: Reports: Headaches. Denies: Dysphasia, Ear Pain, Eye Pain, Hearing Changes, Rhinitis Pulmonary: Reports: Shortness of Breath, Cough. Denies: Wheezing, Hemoptysis Cardiovascular: Denies: Chest Pain, Palpitations, Dyspnea on Exertion Gastrointestinal: Reports: Nausea, Vomiting. Denies: Abdominal Pain, Anorexia, Black Stool Genitourinary: Denies: Dysuria, Frequency, Burning Musculoskeletal: Denies: Neck Pain, Shoulder Pain, Arm Pain, Back Pain Skin: Denies: Cyanosis, Jaundice, Mottled, Pallor Psychiatric: Denies: Confusion, Depression, Mood Lability Neurological: Reports: Dizziness, Headache. Denies: Confusion, Numbness Hematologic/Lymphatic: Denies: Anemia, Easy Bleeding, Easy Bruising Exam - Exam Exam: See Below - Vital Signs Vital Signs: Last Vital Signs Temp 36.2 C 02/04/19 16:11 Pulse 70 02/04/19 16:11 Resp 17 02/04/19 16:11 BP 104/62 02/04/19 16:11 Pulse Ox 96 02/04/19 16:11 Weight: 58.967 kg - Exam Quality Assessment: Supplemental Oxygen General: Cooperative, Moderate Distress HEENT: Hearing Intact, Rhinitis. No: Scleral Icterus Neck: Supple, Trachea Midline Lungs: Decreased Breath Sounds, Rhonchi Cardiovascular: Regular Rate, Regular Rhythm GI/Abdominal Exam: Normal Bowel Sounds, Soft, Non-Tender Peripheral Pulses: 3+: Dorsalis Pedis (L), Dorsalis Pedis (R) Skin: Warm, Dry - Patient Data Lab Results Last 24 hrs: Laboratory Results - last 24 hr 02/04/19 02/04/19 Range/Units 16:33 16:33 WBC 6.69 (4.0-11.0) K/uL RBC 4.45 (4.30-5.90) M/uL Hgb 14.5 (12.0-16.0) g/dL Hct 39.9 (36.0-46.0) % MCV 89.7 (80.0-98.0) fL MCH 32.6 H (27.0-32.0) pg MCHC 36.3 (31.0-37.0) g/dL RDW Std Deviation 41.4 (28.0-62.0) fl RDW Coeff of Haley 13 (11.0-15.0) % Plt Count 93 L (150-400) K/uL MPV 12.70 H (7.40-12.00) fL Neut % (Auto) 72.4 (48.0-80.0) % Lymph % (Auto) 12.1 L (16.0-40.0) % [place] % (Auto) 14.8 (0.0-15.0) % Eos % (Auto) 0.1 (0.0-7.0) % Baso % (Auto) 0.6 (0.0-1.5) % Neut # (Auto) 4.8 (1.4-5.7) K/uL Lymph # (Auto) 0.8 (0.6-2.4) K/uL [place] # (Auto) 1.0 H (0.0-0.8) K/uL Eos # (Auto) 0.0 (0.0-0.7) K/uL Baso # (Auto) 0.0 (0.0-0.1) K/uL Nucleated RBC % 0.0 /100WBC Nucleated RBCs # 0 K/uL Sodium 120 L (136-145) mmol/L Potassium 3.1 L (3.5-5.1) mmol/L Chloride 82 L (98-107) mmol/L Carbon Dioxide 26.3 (21.0-32.0) mmol/L BUN 14 (7.0-18.0) mg/dL Creatinine 1.0 (0.6-1.0) mg/dL Est Cr Clr Drug Dosing 58.47 mL/min Estimated GFR (MDRD) 57.4 ml/min Glucose 112 H (74-106) mg/dL Calcium 8.7 (8.5-10.1) mg/dL Total Bilirubin 3.0 H (0.2-1.0) mg/dL AST 81 H (15-37) IU/L ALT 47 (14-63) IU/L Alkaline Phosphatase 163 H (46-116) U/L Total Protein 7.6 (6.4-8.2) g/dL Albumin 3.6 (3.4-5.0) g/dL Globulin 4.0 (2.6-4.0) g/dL Albumin/Globulin Ratio 0.9 (0.9-1.6) Result Diagrams: 02/04/19 16:33 02/04/19 16:33 Jignesh Results Last 24 hrs: Microbiology 02/04/19 16:30 Influenza Type A Antigen Screen - Final Nasopharyngeal Swab NEGATIVE INFLUENZA A VIRUS AG REFERENCE RANGE: NEGATIVE Influenza Type B Antigen Screen - Final Positive Influenza B Ag Sepsis Event Note - Evaluation Sepsis Screening Result: No Definite Risk - Focused Exam Vital Signs: Vital Signs Temp Pulse Resp BP Pulse Ox 02/04/19 16:11 36.2 C 70 17 104/62 96 Date Exam was Performed: 02/04/19 Time Exam was Performed: 18:43 *Q Meaningful Use (ADM) - VTE Risk Assess *Q Each Risk Factor Represents 1 Point: Age 41 - 59 years Total Score 1 Point Risk Factors: 1 - Problem List (1) Hyponatremia SNOMED Code(s): 08731930 ICD Code: E87.1 - HYPO-OSMOLALITY AND HYPONATREMIA Status: Acute Current Visit: Yes (2) Pneumonia SNOMED Code(s): 059794765 ICD Code: J18.9 - PNEUMONIA, UNSPECIFIED ORGANISM Status: Acute Current Visit: Yes Qualifiers: Pneumonia type: due to unspecified organism Laterality: bilateral Lung location: lower lobe of lung Qualified Code(s): J18.9 - Pneumonia, unspecified organism (3) Influenza B SNOMED Code(s): 50005334 ICD Code: J10.1 - FLU DUE TO OTH IDENT INFLUENZA VIRUS W OTH RESP MANIFEST Status: Acute Current Visit: Yes (4) Hypokalemia SNOMED Code(s): 26617344 ICD Code: E87.6 - HYPOKALEMIA Status: Acute Current Visit: No Problem List Initiated/Reviewed/Updated: Yes Orders Last 24hrs: Active Orders 24 hr Category Date Time Status Admission Status [Patient Status] [ADT] Stat ADT 02/04/19 17:56 Active Ambulate [RC] ASDIRECTED Care 02/04/19 18:10 Ordered Antiembolic Devices [RC] PER UNIT ROUTINE Care 02/04/19 18:12 Ordered Blood Glucose Check, Bedside [RC] BIDMEALS Care 02/04/19 18:10 Ordered Oxygen Therapy [RC] PRN Care 02/04/19 18:10 Ordered RT Aerosol Therapy [RC] ASDIRECTED Care 02/04/19 18:13 Ordered VTE/DVT Education [RC] PER UNIT ROUTINE Care 02/04/19 18:10 Ordered Vital Signs [RC] Q4H Care 02/04/19 18:10 Ordered Clear Liquid Diet [DIET] Diet 02/04/19 Dinner Ordered CULTURE BLOOD [BC] Stat Lab 02/04/19 18:16 Ordered CULTURE BLOOD [BC] Stat Lab 02/04/19 18:16 Ordered UA W/O MICROSCOPIC [URIN] Stat Lab 02/04/19 18:16 Ordered Albuterol/Ipratropium [DuoNeb 3.0-0.5 MG/3 ML] Med 02/04/19 18:10 Ordered 3 ml NEB Q4HRRT PRN Azithromycin [Zithromax] Med 02/05/19 09:00 Ordered 250 mg IV Q24H Azithromycin [Zithromax] 500 mg Med 02/04/19 17:45 Active Sodium Chloride 0.9% [Normal Saline (AdvBag)] 250 ml IV ONETIME Ondansetron [Zofran] Med 02/04/19 18:10 Ordered 4 mg IVPUSH Q4H PRN Oseltamivir [Tamiflu] Med 02/04/19 21:00 Ordered 75 mg PO BID Pantoprazole [ProTONIX IV] Med 02/04/19 21:00 Ordered 40 mg IV Q12HR Sodium Chloride 0.9% @ 125 MLS/HR (1000ml) Med 02/04/19 18:15 Ordered Sodium Chloride 0.9% [Normal Saline] 1,000 ml IV ASDIRECTED Sodium Chloride 0.9% [Normal Saline] 1,000 ml Med 02/04/19 16:16 Active IV .Bolus Sodium Chloride 0.9% [Normal Saline] 1,000 ml Med 02/04/19 17:26 Active IV ONETIME cefTRIAXone [Rocephin in Dextrose,Iso-Osm 1 GM/50 ML] 1 Med 02/05/19 09:00 Ordered gm Premix Bag 1 bag IV Q24H Blood Culture x2 Reflex Set [OM.PC] Stat Oth 02/04/19 18:16 Ordered Sequential Compression Device [OM.PC] Per Unit Routine Oth 02/04/19 18:11 Ordered Resuscitation Status Routine Resus Stat 02/04/19 18:10 Ordered Medication Orders Albuterol/Ipratropium (Duoneb 3.0-0.5 Mg/3 Ml) 3 ml NEB Q4HRRT PRN PRN Reason: Shortness Of Breath/wheezing Azithromycin (Zithromax) 250 mg IV Q24H BRANDO Sodium Chloride (Normal Saline) 1,000 mls @ 1,000 drops/hr IV .Bolus ONE Stop: 02/05/19 07:15 Last Admin: 02/04/19 16:35 Dose: 1,000 drops/hr Sodium Chloride (Normal Saline) 1,000 mls @ 999 mls/hr IV ONETIME ONE Stop: 02/04/19 18:26 Last Admin: 02/04/19 17:40 Dose: 999 mls/hr Azithromycin 500 mg/ Sodium (Chloride) 250 mls @ 250 mls/hr IV ONETIME BRANDO Sodium Chloride (Normal Saline) 1,000 mls @ 125 mls/hr IV ASDIRECTED BRANDO Ceftriaxone Sodium/Dextrose 1 (gm/ Premix) 50 mls @ 100 mls/hr IV Q24H BRANDO Ondansetron HCl (Zofran) 4 mg IVPUSH Q4H PRN PRN Reason: Nausea/Vomiting Oseltamivir Phosphate (Tamiflu) 75 mg PO BID BRANDO Pantoprazole Sodium (Protonix Iv) 40 mg IV Q12HR BRANDO Assessment/Plan Comment:: 58 y/o F comes in with c/o flu like symptoms Was found to be flu positive Dehydrated, Hyponatremic, hypokalemia CXR showed interstitial opacities Start IV antibiotics for CAP start Tamiflu 75 BID Start IVF hydration Zofran for N/V Replete K Trend LFTs, elevated likely sec. to dehydration, n/v Monitor and replete electrolytes as needed
[2019-02-04] MEDS ORDERED: Potassium Chloride Riders 40 MEQ in Premix Bag 1 BAG IV ONE (18:41)
[2019-02-04] MEDS: Sodium Chloride 0.9% 1,000 ML IV SCH (19:10)
[2019-02-04] MEDS: Oseltamivir 75 MG Cap PO SCH (20:17)
[2019-02-04] MEDS ORDERED: Pantoprazole 40 MG Vial IV SCH (21:00)
[2019-02-04] MEDS: Albuterol/Ipratropium 3.0-0.5 MG/3 ML Neb Soln NEB PRN (22:28)
[2019-02-05] MEDS: Sodium Chloride 0.9% 1,000 ML IV SCH ×3 (03:05→21:08)
[2019-02-05 07:10] LABS: BLOOD UREA NITROGEN,BUN 7 mg/dL (7.0-18.0); CARBON DIOXIDE,CO2 23.2 mmol/L (21.0-32.0); CHLORIDE,CL 93 mmol/L (98-107); GLUCOSE RANDOM 90 mg/dL (74-106); SODIUM,NA 128 mmol/L (136-145)
[2019-02-05] MEDS ORDERED: Potassium Chloride 20 MEQ Tab.ER PO ONE ×2 (07:45→09:56)
[2019-02-05] MEDS ORDERED: Magnesium Sulfate/Water 2 GM in Premix Bag 1 BAG IV ONE (07:46)
[2019-02-05] MEDS: Oseltamivir 75 MG Cap PO SCH ×2 (08:29→20:58)
[2019-02-05] MEDS: cefTRIAXone 1 GM in Premix Bag 1 BAG IV SCH (08:30)
[2019-02-05] MEDS ORDERED: cefTRIAXone 2 GM in Premix Bag 1 BAG IV SCH (09:00)
[2019-02-05] MEDS ORDERED: Azithromycin 500 MG Vial IV SCH (09:00)
[2019-02-05] MEDS: Azithromycin 500 MG in Sodium Chloride 0.9% 250 ML IV SCH (09:24)
[2019-02-05] MEDS: Pantoprazole 40 MG in Sodium Chloride 0.9% 10 ML IV SCH ×2 (09:24→20:57)
[2019-02-05] MEDS: Ondansetron 4 MG/2 ML SDV IVPUSH PRN (09:29)
[2019-02-05] MEDS ORDERED: ClonazePAM 0.5 MG Tab PO PRN (10:06)
[2019-02-05] MEDS: atorvaSTATin 20 MG Tab PO SCH (10:42)
[2019-02-05] MEDS: Atenolol 50 MG Tab PO SCH (10:43)
[2019-02-05] MEDS: buPROPion 150 MG Tab.ER PO SCH (10:43)
[2019-02-05] MEDS: Albuterol/Ipratropium 3.0-0.5 MG/3 ML Neb Soln NEB PRN (11:22)
--- NOTE | 2019-02-05 11:49 | PCM.PN ---
- General Info Date of Service: 02/05/19 Subjective Update: Seen at bedside; endorsing feeling better than yesterday however still feeling chills and weakness. Doing better on drinking more fluids however is endorsing her appetite is still quite low; denies any other acute complaints at this time. - Review of Systems General: Reports: Chills. Denies: Fever, Fatigue HEENT: Reports: No Symptoms Pulmonary: Reports: Cough. Denies: Shortness of Breath Cardiovascular: Denies: Chest Pain, Palpitations, Dyspnea on Exertion Gastrointestinal: Reports: Decreased Appetite, Diarrhea, Nausea, Vomiting. Denies: Constipation Genitourinary: Reports: No Symptoms Musculoskeletal: Reports: No Symptoms Neurological: Reports: Headache. Denies: Confusion, Dizziness - Patient Data Vitals - Most Recent: Last Vital Signs Temp 99.3 F 02/05/19 07:30 Pulse 85 02/05/19 10:43 Resp 20 02/05/19 07:30 BP 126/71 02/05/19 10:43 Pulse Ox 92 L 02/05/19 07:30 Weight - Most Recent: 143 lb 3.2 oz I&O - Last 24 Hours: Intake & Output 02/04/19 02/05/19 02/05/19 22:59 06:59 14:59 Intake Total 100 1190 Output Total 2100 Balance 100 -910 Lab Results Last 24 Hours: Laboratory Results - last 24 hr 02/04/19 02/04/19 02/04/19 Range/Units 16:33 16:33 21:00 WBC 6.69 (4.0-11.0) K/uL RBC 4.45 (4.30-5.90) M/uL Hgb 14.5 (12.0-16.0) g/dL Hct 39.9 (36.0-46.0) % MCV 89.7 (80.0-98.0) fL MCH 32.6 H (27.0-32.0) pg MCHC 36.3 (31.0-37.0) g/dL RDW Std Deviation 41.4 (28.0-62.0) fl RDW Coeff of Haley 13 (11.0-15.0) % Plt Count 93 L (150-400) K/uL MPV 12.70 H (7.40-12.00) fL Neut % (Auto) 72.4 (48.0-80.0) % Lymph % (Auto) 12.1 L (16.0-40.0) % [place] % (Auto) 14.8 (0.0-15.0) % Eos % (Auto) 0.1 (0.0-7.0) % Baso % (Auto) 0.6 (0.0-1.5) % Neut # (Auto) 4.8 (1.4-5.7) K/uL Lymph # (Auto) 0.8 (0.6-2.4) K/uL [place] # (Auto) 1.0 H (0.0-0.8) K/uL Eos # (Auto) 0.0 (0.0-0.7) K/uL Baso # (Auto) 0.0 (0.0-0.1) K/uL Nucleated RBC % 0.0 /100WBC Nucleated RBCs # 0 K/uL Sodium 120 L (136-145) mmol/L Potassium 3.1 L (3.5-5.1) mmol/L Chloride 82 L (98-107) mmol/L Carbon Dioxide 26.3 (21.0-32.0) mmol/L BUN 14 (7.0-18.0) mg/dL Creatinine 1.0 (0.6-1.0) mg/dL Est Cr Clr Drug Dosing 58.47 mL/min Estimated GFR (MDRD) 57.4 ml/min Glucose 112 H (74-106) mg/dL POC Glucose (60-110) mg/dL Calcium 8.7 (8.5-10.1) mg/dL Phosphorus (2.6-4.7) mg/dL Magnesium (1.8-2.4) mg/dL Total Bilirubin 3.0 H (0.2-1.0) mg/dL AST 81 H (15-37) IU/L ALT 47 (14-63) IU/L Alkaline Phosphatase 163 H (46-116) U/L Total Protein 7.6 (6.4-8.2) g/dL Albumin 3.6 (3.4-5.0) g/dL Globulin 4.0 (2.6-4.0) g/dL Albumin/Globulin Ratio 0.9 (0.9-1.6) Urine Color YELLOW Urine Appearance CLEAR Urine pH 6.0 (5.0-8.0) Ur Specific [place] 1.010 (1.001-1.035) Urine Protein NEGATIVE (NEGATIVE) mg/dL Urine Glucose (UA) NEGATIVE (NEGATIVE) mg/dL Urine Ketones 15 H (NEGATIVE) mg/dL Urine Occult Blood NEGATIVE (NEGATIVE) Urine Nitrite NEGATIVE (NEGATIVE) Urine Bilirubin NEGATIVE (NEGATIVE) Urine Urobilinogen 2.0 H (<2.0) EU/dL Ur Leukocyte Esterase NEGATIVE (NEGATIVE) 02/05/19 02/05/19 02/05/19 Range/Units 06:15 06:15 09:26 WBC 5.06 (4.0-11.0) K/uL RBC 3.68 L (4.30-5.90) M/uL Hgb 12.1 (12.0-16.0) g/dL Hct 33.0 L (36.0-46.0) % MCV 89.7 (80.0-98.0) fL MCH 32.9 H (27.0-32.0) pg MCHC 36.7 (31.0-37.0) g/dL RDW Std Deviation 41.2 (28.0-62.0) fl RDW Coeff of Haley 13 (11.0-15.0) % Plt Count 90 L (150-400) K/uL MPV 11.90 (7.40-12.00) fL Neut % (Auto) 64.4 (48.0-80.0) % Lymph % (Auto) 15.8 L (16.0-40.0) % [place] % (Auto) 19.4 H (0.0-15.0) % Eos % (Auto) 0.0 (0.0-7.0) % Baso % (Auto) 0.4 (0.0-1.5) % Neut # (Auto) 3.3 (1.4-5.7) K/uL Lymph # (Auto) 0.8 (0.6-2.4) K/uL [place] # (Auto) 1.0 H (0.0-0.8) K/uL Eos # (Auto) 0.0 (0.0-0.7) K/uL Baso # (Auto) 0.0 (0.0-0.1) K/uL Nucleated RBC % 0.0 /100WBC Nucleated RBCs # 0 K/uL Sodium 128 L (136-145) mmol/L Potassium 3.0 L (3.5-5.1) mmol/L Chloride 93 L (98-107) mmol/L Carbon Dioxide 23.2 (21.0-32.0) mmol/L BUN 7 (7.0-18.0) mg/dL Creatinine 0.6 (0.6-1.0) mg/dL Est Cr Clr Drug Dosing 105.61 mL/min Estimated GFR (MDRD) > 60.0 ml/min Glucose 90 (74-106) mg/dL POC Glucose 94 (60-110) mg/dL Calcium 7.4 L (8.5-10.1) mg/dL Phosphorus 1.7 L (2.6-4.7) mg/dL Magnesium 1.5 L (1.8-2.4) mg/dL Total Bilirubin 2.0 H (0.2-1.0) mg/dL AST 61 H (15-37) IU/L ALT 39 (14-63) IU/L Alkaline Phosphatase 131 H (46-116) U/L Total Protein 5.6 L (6.4-8.2) g/dL Albumin 2.8 L (3.4-5.0) g/dL Globulin 2.8 (2.6-4.0) g/dL Albumin/Globulin Ratio 1.0 (0.9-1.6) Urine Color Urine Appearance Urine pH (5.0-8.0) Ur Specific [place] (1.001-1.035) Urine Protein (NEGATIVE) mg/dL Urine Glucose (UA) (NEGATIVE) mg/dL Urine Ketones (NEGATIVE) mg/dL Urine Occult Blood (NEGATIVE) Urine Nitrite (NEGATIVE) Urine Bilirubin (NEGATIVE) Urine Urobilinogen (<2.0) EU/dL Ur Leukocyte Esterase (NEGATIVE) Jignesh Results Last 24 Hours: Microbiology 02/04/19 18:51 Anaerobic Blood Culture - Final Blood - Venous - Lab Draw 02/04/19 16:30 Influenza Type A Antigen Screen - Final Nasopharyngeal Swab NEGATIVE INFLUENZA A VIRUS AG REFERENCE RANGE: NEGATIVE Influenza Type B Antigen Screen - Final Positive Influenza B Ag Med Orders - Current: Current Medications Albuterol/Ipratropium (Duoneb 3.0-0.5 Mg/3 Ml) 3 ml NEB Q4HRRT PRN PRN Reason: Shortness Of Breath/wheezing Last Admin: 02/05/19 11:22 Dose: 3 ml Atenolol (Tenormin) 50 mg PO DAILY [facility] Last Admin: 02/05/19 10:43 Dose: 50 mg Atorvastatin Calcium (Lipitor) 20 mg PO DAILY [facility] Last Admin: 02/05/19 10:42 Dose: 20 mg Bupropion HCl (Wellbutrin Xl) 150 mg PO DAILY [facility] Last Admin: 02/05/19 10:43 Dose: 150 mg Clonazepam (Klonopin) 0.5 mg PO BID PRN PRN Reason: Anxiety Last Admin: 02/05/19 10:41 Dose: 0.5 mg Sodium Chloride (Normal Saline) 1,000 mls @ 125 mls/hr IV ASDIRECTED [facility] Last Admin: 02/05/19 03:05 Dose: 125 mls/hr Ceftriaxone Sodium/Dextrose 1 (gm/ Premix) 50 mls @ 100 mls/hr IV Q24H [facility] Last Admin: 02/05/19 08:30 Dose: 100 mls/hr Azithromycin 500 mg/ Sodium (Chloride) 250 mls @ 250 mls/hr IV DAILY [facility] Last Admin: 02/05/19 09:24 Dose: 250 mls/hr Pantoprazole Sodium 40 mg/ (Sodium Chloride) 10 mls @ 200 mls/hr IV Q12H [facility] Last Admin: 02/05/19 09:24 Dose: 200 mls/hr Ondansetron HCl (Zofran) 4 mg IVPUSH Q4H PRN PRN Reason: Nausea/Vomiting Last Admin: 02/05/19 09:29 Dose: 4 mg Oseltamivir Phosphate (Tamiflu) 75 mg PO BID [facility] Last Admin: 02/05/19 08:29 Dose: 75 mg Discontinued Medications Guaifenesin (Mucinex) 1,200 mg PO ONETIME ONE Stop: 02/04/19 16:19 Last Admin: 02/04/19 16:34 Dose: 1,200 mg Guaifenesin (Mucinex) 1,200 mg PO ONETIME ONE Stop: 02/04/19 16:31 Last Admin: 02/04/19 16:55 Dose: Not Given Sodium Chloride (Normal Saline) 1,000 mls @ 1,000 drops/hr IV .Bolus ONE Stop: 02/05/19 07:15 Last Admin: 02/04/19 16:35 Dose: 1,000 drops/hr Sodium Chloride (Normal Saline) 1,000 mls @ 999 mls/hr IV ONETIME ONE Stop: 02/04/19 18:26 Last Admin: 02/04/19 17:40 Dose: 999 mls/hr Ceftriaxone Sodium 1 gm/ (Sodium Chloride) 50 mls @ 100 mls/hr IV ONETIME ONE Stop: 02/04/19 18:07 Last Admin: 02/04/19 18:02 Dose: 100 mls/hr Azithromycin 500 mg/ Sodium (Chloride) 250 mls @ 250 mls/hr IV ONETIME [facility] Last Admin: 02/05/19 00:53 Dose: 250 mls/hr Ceftriaxone Sodium/Dextrose 2 (gm/ Premix) 50 mls @ 100 mls/hr IV Q24H [facility] Potassium Chloride 40 meq/ (Premix) 100 mls @ 25 mls/hr IV ONETIME ONE Stop: 02/04/19 22:40 Last Admin: 02/04/19 20:54 Dose: 25 mls/hr Magnesium Sulfate 2 gm/ Premix 50 mls @ 25 mls/hr IV ONETIME ONE Stop: 02/05/19 09:45 Last Admin: 02/05/19 09:22 Dose: 25 mls/hr Pantoprazole Sodium (Protonix Iv) 40 mg IV Q12HR [facility] Last Admin: 02/04/19 20:17 Dose: 40 mg Potassium Chloride (Klor-Con M20) 40 meq PO ONETIME ONE Stop: 02/05/19 07:46 Last Admin: 02/05/19 08:29 Dose: 40 meq Potassium Chloride (Klor-Con M20) 20 meq PO ONETIME ONE Stop: 02/05/19 09:57 Last Admin: 02/05/19 10:41 Dose: 20 meq - Exam General: Alert, Oriented, Cooperative HEENT: EOMI, Mucous Membr. Moist/[place] Neck: Supple Lungs: Normal Respiratory Effort, Other (mild coarse BS in mid lung michael b/l ) Cardiovascular: Regular Rate, Regular Rhythm GI/Abdominal Exam: Soft, Non-Tender Extremities: Normal Inspection Neurological: No New Focal Deficit, Normal Speech Psy/Mental Status: Alert, Normal Mood Sepsis Event Note - Evaluation Sepsis Screening Result: No Definite Risk - Focused Exam Vital Signs: Vital Signs Temp Pulse Pulse Resp BP BP Pulse Ox 02/05/19 10:43 85 126/71 02/05/19 07:30 99.3 F 86 20 170/74 H 92 L 02/05/19 04:00 98.2 F 84 16 135/81 95 02/05/19 00:00 98.6 F 73 18 132/75 95 Date Exam was Performed: 02/05/19 Time Exam was Performed: 11:44 - Problem List Review Problem List Initiated/Reviewed/Updated: Yes - My Orders Last 24 Hours: My Active Orders 02/05/19 10:06 ClonazePAM [KlonoPIN] 0.5 mg PO BID PRN 02/05/19 10:15 atenoloL [Tenormin] 50 mg PO DAILY atorvaSTATin [Lipitor] 20 mg PO DAILY buPROPion [Wellbutrin XL] 150 mg PO DAILY - Plan Plan:: 58 y/o F comes in with c/o flu like symptoms Was found to be flu positive Dehydrated, Hyponatremic, hypokalemia: improving w/ IV fluids. Repleted w/ 60 meq of potassium this AM CXR showed interstitial opacities: on Azithromycin and CTX; continue Continue Tamiflu 75 BID Continue IVF hydration since pt. is still vomiting ; Hyponatremia improving; no changes in mental status or neurological deficits appreciated Hypomagnesemia: 2gm IV Mg given in AM Zofran for N/V Monitor and replete electrolytes as needed
[2019-02-06] MEDS: Sodium Chloride 0.9% 1,000 ML IV SCH (05:17)
[2019-02-06 07:07] LABS: BLOOD UREA NITROGEN,BUN 4 mg/dL (7.0-18.0); CARBON DIOXIDE,CO2 24.8 mmol/L (21.0-32.0); CHLORIDE,CL 97 mmol/L (98-107); GLUCOSE RANDOM 88 mg/dL (74-106); POTASSIUM,K 3.6 mmol/L (3.5-5.1); SODIUM,NA 130 mmol/L (136-145)
[2019-02-06] MEDS: cefTRIAXone 1 GM in Premix Bag 1 BAG IV SCH (08:11)
[2019-02-06] MEDS: atorvaSTATin 20 MG Tab PO SCH (08:12)
[2019-02-06] MEDS: buPROPion 150 MG Tab.ER PO SCH (08:13)
[2019-02-06] MEDS: Atenolol 50 MG Tab PO SCH (08:13)
[2019-02-06] MEDS: Oseltamivir 75 MG Cap PO SCH (08:15)
[2019-02-06 08:16] VITALS: PULSE 79
[2019-02-06] MEDS: Ondansetron 4 MG/2 ML SDV IVPUSH PRN (08:33)
[2019-02-06] MEDS: Pantoprazole 40 MG in Sodium Chloride 0.9% 10 ML IV SCH (08:33)
--- NOTE | 2019-02-06 08:50 | PCM.DCSUM1 ---
<Rafita Falcon - Last Filed: 02/06/19 15:25> Discharge Summary - Hospital Course Free Text/Narrative:: Discharge summary Admission date 02-04-2019 Discharge date 02-06-2019 Admission diagnoses: CAP Influenza B Discharge diagnoses: CAP improving Influenza B Consultations: None Procedures: None Hospital course: Patient is a 58-year-old female past medical history of hypertension, GI bleed presenting with complaints of flulike symptoms, cough, shortness of breath, fever, chills, fatigue. On arrival patient was found to have influenza B and concerns for pneumonia. Patient was initiated on 7 5 mg tablet twice daily and with concerns of pneumonia was also started on azithromycin with ceftriaxone daily. Patient was also hyponatremic initially at 120 intravenous fluid was initiated; and had improved at an appropriate rate throughout her stay. On day of discharge patient was had vast improvement of her hyponatremia above 130. No changes in her mental status. Patient was discharged home secondary to her feeling strong and stable on Tamiflu and Levaquin for additional 5 days. Patient was advised to follow-up PCP in 1 week but also follow-up in 6 to 8 weeks for repeat chest x-ray to monitor resolution of pneumonia. Discharge condition: Stable /improving Disposition: Home - Discharge Data Discharge Date: 02/06/19 Discharge Disposition: Home, Self-Care 01 Condition: Stable - Referral to Home Health Primary Care Physician: London Yeung MD - Discharge Plan *PRESCRIPTION DRUG MONITORING PROGRAM REVIEWED*: Yes *COPY OF PRESCRIPTION DRUG MONITORING REPORT IN PATIENT GISEL: Yes Prescriptions/Med Rec: Levofloxacin [Levaquin] 750 mg PO DAILY 5 Days #5 tablet Ondansetron [Zofran Odt] 8 mg PO Q6H PRN 3 Days #12 tab.rapdis PRN Reason: Nausea/Vomiting Oseltamivir [Tamiflu] 75 mg PO BID 5 Days #10 cap Home Medications: Home Meds ClonazePAM [KlonoPIN] 1 tab PO BID PRN 06/11/15 [History] atenoloL [Atenolol] 1 tab PO DAILY 06/11/15 [History] buPROPion [Wellbutrin XL] 150 mg PO DAILY 10/25/16 [History] atorvaSTATin Calcium [Atorvastatin Calcium] 20 mg DAILY 12/27/17 [History] Levofloxacin [Levaquin] 750 mg PO DAILY 5 Days #5 tablet 02/06/19 [Rx] Ondansetron [Zofran Odt] 8 mg PO Q6H PRN 3 Days #12 tab.rapdis 02/06/19 [Rx] Oseltamivir [Tamiflu] 75 mg PO BID 5 Days #10 cap 02/06/19 [Rx] Patient Handouts: Influenza, Adult, [id number], Ondansetron oral dissolving tablet, Oseltamivir capsules, Levofloxacin tablets, Community-Acquired Pneumonia , Adult, [id number] Referrals: [facility] [Outside] London Yeung MD [Primary Care Provider] - 02/16/19 8:15 am - Discharge Summary/Plan Comment DC Time >30 min.: No - Patient Data Vitals - Most Recent: Last Vital Signs Temp 97.9 F 02/06/19 04:00 Pulse 79 02/06/19 08:13 Resp 20 02/06/19 04:00 BP 158/79 H 02/06/19 08:13 Pulse Ox 92 L 02/06/19 04:00 Weight - Most Recent: 64.954 kg I&O - Last 24 hours: Intake & Output 02/05/19 02/06/19 02/06/19 22:59 06:59 14:59 Intake Total 2312 2076 Output Total 1600 Balance 712 2076 Lab Results - Last 24 hrs: Laboratory Results - last 24 hr 02/05/19 02/05/19 02/05/19 Range/Units 09:26 12:10 17:31 WBC (4.0-11.0) K/uL RBC (4.30-5.90) M/uL Hgb (12.0-16.0) g/dL Hct (36.0-46.0) % MCV (80.0-98.0) fL MCH (27.0-32.0) pg MCHC (31.0-37.0) g/dL RDW Std Deviation (28.0-62.0) fl RDW Coeff of [place]aley (11.0-15.0) % Plt Count (150-400) K/uL MPV (7.40-12.00) fL Neut % (Auto) (48.0-80.0) % Lymph % (Auto) (16.0-40.0) % [place] % (Auto) (0.0-15.0) % Eos % (Auto) (0.0-7.0) % Baso % (Auto) (0.0-1.5) % Neut # (Auto) (1.4-5.7) K/uL Lymph # (Auto) (0.6-2.4) K/uL [place] # (Auto) (0.0-0.8) K/uL Eos # (Auto) (0.0-0.7) K/uL Baso # (Auto) (0.0-0.1) K/uL Nucleated RBC % /100WBC Nucleated RBCs # K/uL Sodium (136-145) mmol/L Potassium (3.5-5.1) mmol/L Chloride (98-107) mmol/L Carbon Dioxide (21.0-32.0) mmol/L BUN (7.0-18.0) mg/dL Creatinine (0.6-1.0) mg/dL Est Cr Clr Drug Dosing mL/min Estimated GFR (MDRD) ml/min Glucose (74-106) mg/dL POC Glucose 94 92 129 H (60-110) mg/dL Calcium (8.5-10.1) mg/dL Total Bilirubin (0.2-1.0) mg/dL AST (15-37) IU/L ALT (14-63) IU/L Alkaline Phosphatase (46-116) U/L Total Protein (6.4-8.2) g/dL Albumin (3.4-5.0) g/dL Globulin (2.6-4.0) g/dL Albumin/Globulin Ratio (0.9-1.6) 02/05/19 02/06/19 02/06/19 Range/Units 21:00 06:22 06:23 WBC 5.19 (4.0-11.0) K/uL RBC 3.89 L (4.30-5.90) M/uL Hgb 12.6 (12.0-16.0) g/dL Hct 35.8 L (36.0-46.0) % MCV 92.0 (80.0-98.0) fL MCH 32.4 H (27.0-32.0) pg MCHC 35.2 (31.0-37.0) g/dL RDW Std Deviation 43.8 (28.0-62.0) fl RDW Coeff of [place] 13 (11.0-15.0) % Plt Count 85 L (150-400) K/uL MPV 12.00 (7.40-12.00) fL Neut % (Auto) 61.1 (48.0-80.0) % Lymph % (Auto) 19.8 (16.0-40.0) % [place] % (Auto) 18.3 H (0.0-15.0) % Eos % (Auto) 0.4 (0.0-7.0) % Baso % (Auto) 0.4 (0.0-1.5) % Neut # (Auto) 3.2 (1.4-5.7) K/uL Lymph # (Auto) 1.0 (0.6-2.4) K/uL [place] # (Auto) 1.0 H (0.0-0.8) K/uL Eos # (Auto) 0.0 (0.0-0.7) K/uL Baso # (Auto) 0.0 (0.0-0.1) K/uL Nucleated RBC % 0.0 /100WBC Nucleated RBCs # 0 K/uL Sodium (136-145) mmol/L Potassium (3.5-5.1) mmol/L Chloride (98-107) mmol/L Carbon Dioxide (21.0-32.0) mmol/L BUN (7.0-18.0) mg/dL Creatinine (0.6-1.0) mg/dL Est Cr Clr Drug Dosing mL/min Estimated GFR (MDRD) ml/min Glucose (74-106) mg/dL POC Glucose 90 83 (60-110) mg/dL Calcium (8.5-10.1) mg/dL Total Bilirubin (0.2-1.0) mg/dL AST (15-37) IU/L ALT (14-63) IU/L Alkaline Phosphatase (46-116) U/L Total Protein (6.4-8.2) g/dL Albumin (3.4-5.0) g/dL Globulin (2.6-4.0) g/dL Albumin/Globulin Ratio (0.9-1.6) 02/06/19 Range/Units 06:23 WBC (4.0-11.0) K/uL RBC (4.30-5.90) M/uL Hgb (12.0-16.0) g/dL Hct (36.0-46.0) % MCV (80.0-98.0) fL MCH (27.0-32.0) pg MCHC (31.0-37.0) g/dL RDW Std Deviation (28.0-62.0) fl RDW Coeff of [place] (11.0-15.0) % Plt Count (150-400) K/uL MPV (7.40-12.00) fL Neut % (Auto) (48.0-80.0) % Lymph % (Auto) (16.0-40.0) % [place] % (Auto) (0.0-15.0) % Eos % (Auto) (0.0-7.0) % Baso % (Auto) (0.0-1.5) % Neut # (Auto) (1.4-5.7) K/uL Lymph # (Auto) (0.6-2.4) K/uL [place] # (Auto) (0.0-0.8) K/uL Eos # (Auto) (0.0-0.7) K/uL Baso # (Auto) (0.0-0.1) K/uL Nucleated RBC % /100WBC Nucleated RBCs # K/uL Sodium 130 L (136-145) mmol/L Potassium 3.6 (3.5-5.1) mmol/L Chloride 97 L (98-107) mmol/L Carbon Dioxide 24.8 (21.0-32.0) mmol/L BUN 4 L (7.0-18.0) mg/dL Creatinine 0.7 (0.6-1.0) mg/dL Est Cr Clr Drug Dosing 90.53 mL/min Estimated GFR (MDRD) > 60.0 ml/min Glucose 88 (74-106) mg/dL POC Glucose (60-110) mg/dL Calcium 8.1 L (8.5-10.1) mg/dL Total Bilirubin 1.8 H (0.2-1.0) mg/dL AST 69 H (15-37) IU/L ALT 42 (14-63) IU/L Alkaline Phosphatase 137 H (46-116) U/L Total Protein 6.4 (6.4-8.2) g/dL Albumin 2.8 L (3.4-5.0) g/dL Globulin 3.6 (2.6-4.0) g/dL Albumin/Globulin Ratio 0.8 L (0.9-1.6) EMERITA Results - Last 24 hrs: Microbiology 02/04/19 18:51 Aerobic Blood Culture - Preliminary Blood - Venous - Lab Draw NO GROWTH AFTER 1 DAY Anaerobic Blood Culture - Final 02/04/19 18:34 Aerobic Blood Culture - Preliminary Blood - Venous NO GROWTH AFTER 1 DAY Anaerobic Blood Culture - Preliminary NO GROWTH AFTER 1 DAY Med Orders - Current: Current Medications Albuterol/Ipratropium (Duoneb 3.0-0.5 Mg/3 Ml) 3 ml NEB Q4HRRT PRN PRN Reason: Shortness Of Breath/wheezing Last Admin: 02/05/19 11:22 Dose: 3 ml Atenolol (Tenormin) 50 mg PO DAILY [facility] Last Admin: 02/06/19 08:13 Dose: 50 mg Atorvastatin Calcium (Lipitor) 20 mg PO DAILY [facility] Last Admin: 02/06/19 08:12 Dose: 20 mg Bupropion HCl (Wellbutrin Xl) 150 mg PO DAILY [facility] Last Admin: 02/06/19 08:13 Dose: 150 mg Clonazepam (Klonopin) 0.5 mg PO BID PRN PRN Reason: Anxiety Last Admin: 02/05/19 10:41 Dose: 0.5 mg Sodium Chloride (Normal Saline) 1,000 mls @ 125 mls/hr IV ASDIRECTED [facility] Last Admin: 02/06/19 05:17 Dose: 125 mls/hr Ceftriaxone Sodium/Dextrose 1 (gm/ Premix) 50 mls @ 100 mls/hr IV Q24H [facility] Last Admin: 02/06/19 08:11 Dose: 100 mls/hr Azithromycin 500 mg/ Sodium (Chloride) 250 mls @ 250 mls/hr IV DAILY [facility] Last Admin: 02/05/19 09:24 Dose: 250 mls/hr Pantoprazole Sodium 40 mg/ (Sodium Chloride) 10 mls @ 200 mls/hr IV Q12H [facility] Last Admin: 02/06/19 08:33 Dose: 200 mls/hr Ondansetron HCl (Zofran) 4 mg IVPUSH Q4H PRN PRN Reason: Nausea/Vomiting Last Admin: 02/06/19 08:33 Dose: 4 mg Oseltamivir Phosphate (Tamiflu) 75 mg PO BID [facility] Last Admin: 02/06/19 08:15 Dose: 75 mg Discontinued Medications Guaifenesin (Mucinex) 1,200 mg PO ONETIME ONE Stop: 02/04/19 16:19 Last Admin: 02/04/19 16:34 Dose: 1,200 mg Guaifenesin (Mucinex) 1,200 mg PO ONETIME ONE Stop: 02/04/19 16:31 Last Admin: 02/04/19 16:55 Dose: Not Given Sodium Chloride (Normal Saline) 1,000 mls @ 1,000 drops/hr IV .Bolus ONE Stop: 02/05/19 07:15 Last Admin: 02/04/19 16:35 Dose: 1,000 drops/hr Sodium Chloride (Normal Saline) 1,000 mls @ 999 mls/hr IV ONETIME ONE Stop: 02/04/19 18:26 Last Admin: 02/04/19 17:40 Dose: 999 mls/hr Ceftriaxone Sodium 1 gm/ (Sodium Chloride) 50 mls @ 100 mls/hr IV ONETIME ONE Stop: 02/04/19 18:07 Last Admin: 02/04/19 18:02 Dose: 100 mls/hr Azithromycin 500 mg/ Sodium (Chloride) 250 mls @ 250 mls/hr IV ONETIME [facility] Last Admin: 02/05/19 00:53 Dose: 250 mls/hr Ceftriaxone Sodium/Dextrose 2 (gm/ Premix) 50 mls @ 100 mls/hr IV Q24H [facility] Potassium Chloride 40 meq/ (Premix) 100 mls @ 25 mls/hr IV ONETIME ONE Stop: 02/04/19 22:40 Last Admin: 02/04/19 20:54 Dose: 25 mls/hr Magnesium Sulfate 2 gm/ Premix 50 mls @ 25 mls/hr IV ONETIME ONE Stop: 02/05/19 09:45 Last Admin: 02/05/19 09:22 Dose: 25 mls/hr Pantoprazole Sodium (Protonix Iv) 40 mg IV Q12HR [facility] Last Admin: 02/04/19 20:17 Dose: 40 mg Potassium Chloride (Klor-Con M20) 40 meq PO ONETIME ONE Stop: 02/05/19 07:46 Last Admin: 02/05/19 08:29 Dose: 40 meq Potassium Chloride (Klor-Con M20) 20 meq PO ONETIME ONE Stop: 02/05/19 09:57 Last Admin: 02/05/19 10:41 Dose: 20 meq <Joey Gracia J - Last Filed: 02/10/19 12:06> Discharge Summary - Referral to [facility] Primary Care Physician: London Yeung MD - Patient Data Vitals - Most Recent: Last Vital Signs Temp 36.8 C 02/06/19 11:40 Pulse 79 02/06/19 11:40 Resp 18 02/06/19 11:40 BP 152/89 H 02/06/19 11:40 Pulse Ox 95 02/06/19 11:40 EMERITA Results - Last 24 hrs: Microbiology 02/04/19 18:51 Aerobic Blood Culture - Final Blood - Venous - Lab Draw NO GROWTH AFTER 5 DAYS Anaerobic Blood Culture - Final 02/04/19 18:34 Aerobic Blood Culture - Final Blood - Venous NO GROWTH AFTER 5 DAYS Anaerobic Blood Culture - Final NO GROWTH AFTER 5 DAYS Med Orders - Current: Current Medications Discontinued Medications Albuterol/Ipratropium (Duoneb 3.0-0.5 Mg/3 Ml) 3 ml NEB Q4HRRT PRN PRN Reason: Shortness Of Breath/wheezing Last Admin: 02/05/19 11:22 Dose: 3 ml Atenolol (Tenormin) 50 mg PO DAILY [facility] Last Admin: 02/06/19 08:13 Dose: 50 mg Atorvastatin Calcium (Lipitor) 20 mg PO DAILY [facility] Last Admin: 02/06/19 08:12 Dose: 20 mg Bupropion HCl (Wellbutrin Xl) 150 mg PO DAILY [facility] Last Admin: 02/06/19 08:13 Dose: 150 mg Clonazepam (Klonopin) 0.5 mg PO BID PRN PRN Reason: Anxiety Last Admin: 02/05/19 10:41 Dose: 0.5 mg Guaifenesin (Mucinex) 1,200 mg PO ONETIME ONE Stop: 02/04/19 16:19 Last Admin: 02/04/19 16:34 Dose: 1,200 mg Guaifenesin (Mucinex) 1,200 mg PO ONETIME ONE Stop: 02/04/19 16:31 Last Admin: 02/04/19 16:55 Dose: Not Given Sodium Chloride (Normal Saline) 1,000 mls @ 1,000 drops/hr IV .Bolus ONE Stop: 02/05/19 07:15 Last Admin: 02/04/19 16:35 Dose: 1,000 drops/hr Sodium Chloride (Normal Saline) 1,000 mls @ 999 mls/hr IV ONETIME ONE Stop: 02/04/19 18:26 Last Admin: 02/04/19 17:40 Dose: 999 mls/hr Ceftriaxone Sodium 1 gm/ (Sodium Chloride) 50 mls @ 100 mls/hr IV ONETIME ONE Stop: 02/04/19 18:07 Last Admin: 02/04/19 18:02 Dose: 100 mls/hr Azithromycin 500 mg/ Sodium (Chloride) 250 mls @ 250 mls/hr IV ONETIME [facility] Last Admin: 02/05/19 00:53 Dose: 250 mls/hr Sodium Chloride (Normal Saline) 1,000 mls @ 125 mls/hr IV ASDIRECTED [facility] Last Admin: 02/06/19 05:17 Dose: 125 mls/hr Ceftriaxone Sodium/Dextrose 2 (gm/ Premix) 50 mls @ 100 mls/hr IV Q24H [facility] Ceftriaxone Sodium/Dextrose 1 (gm/ Premix) 50 mls @ 100 mls/hr IV Q24H [facility] Last Admin: 02/06/19 08:11 Dose: 100 mls/hr Potassium Chloride 40 meq/ (Premix) 100 mls @ 25 mls/hr IV ONETIME ONE Stop: 02/04/19 22:40 Last Admin: 02/04/19 20:54 Dose: 25 mls/hr Azithromycin 500 mg/ Sodium (Chloride) 250 mls @ 250 mls/hr IV DAILY [facility] Last Admin: 02/06/19 10:05 Dose: 250 mls/hr Magnesium Sulfate 2 gm/ Premix 50 mls @ 25 mls/hr IV ONETIME ONE Stop: 02/05/19 09:45 Last Admin: 02/05/19 09:22 Dose: 25 mls/hr Pantoprazole Sodium 40 mg/ (Sodium Chloride) 10 mls @ 200 mls/hr IV Q12H [facility] Last Admin: 02/06/19 08:33 Dose: 200 mls/hr Ondansetron HCl (Zofran) 4 mg IVPUSH Q4H PRN PRN Reason: Nausea/Vomiting Last Admin: 02/06/19 08:33 Dose: 4 mg Oseltamivir Phosphate (Tamiflu) 75 mg PO BID [facility] Last Admin: 02/06/19 08:15 Dose: 75 mg Pantoprazole Sodium (Protonix Iv) 40 mg IV Q12HR [facility] Last Admin: 02/04/19 20:17 Dose: 40 mg Potassium Chloride (Klor-Con M20) 40 meq PO ONETIME ONE Stop: 02/05/19 07:46 Last Admin: 02/05/19 08:29 Dose: 40 meq Potassium Chloride (Klor-Con M20) 20 meq PO ONETIME ONE Stop: 02/05/19 09:57 Last Admin: 02/05/19 10:41 Dose: 20 meq - Free Text/Narrative Note: I have examined patient with resident. I have discussed findings and treatment plan with the resident. I agree with the assessment and plan as outlined in the following note.
[2019-02-06] MEDS: Azithromycin 500 MG in Sodium Chloride 0.9% 250 ML IV SCH (10:05)
[2019-02-06 12:30] VITALS: BP 152/89
== END 2019-02-06 11:50 | disposition home or self-care (01) ==
LOC: MW.ED 16:01 → MW.MS 18:33
PROVIDERS: ADMIT Student in an Organized Health Care Education/Training Program; ATTEND Student in an Organized Health Care Education/Training Program
DX: J18.9 Pneumonia, unspecified organism (principal); J10.1 Influenza due to other identified influenza virus with other respiratory manifestations; I10 Essential (primary) hypertension; K21.9 Gastro-esophageal reflux disease without esophagitis; E87.6 Hypokalemia; F32.9 Major depressive disorder, single episode, unspecified; F17.210 Nicotine dependence, cigarettes, uncomplicated; Z79.899 Other long term (current) drug therapy; Z88.5 Allergy status to narcotic agent; Z91.012 Allergy to eggs
CPT/HCPCS: 36415; 71046; 80053; 81003; 82962; 83735; 84100; 85025; 87040; 87804; 94640; 96361; 96365; 96366; 96367; 96375; 96376; 99285; A9270; C9113; G0378; J0456; J0696; J2405; J3475; J3480; J7030; J7050; J7620-GY

== ENCOUNTER 2020-12-08 21:44 | Inpatient (IN) | payer BC ==
[2020-12-08] MEDS ORDERED: Sodium Chloride 0.9% 2.5 ML Syringe FLUSH PRN (22:15)
[2020-12-08] MEDS ORDERED: Sodium Chloride 0.9% 10 ML Syringe FLUSH PRN (22:15)
[2020-12-08] MEDS ORDERED: Folic Acid 50 MG/10 ML MDV IV STA (22:43)
[2020-12-08] MEDS ORDERED: Thiamine 100 MG in Sodium Chloride 0.9% 100 ML IV ONE (22:43)
--- NOTE | 2020-12-08 22:45 | EDM.PDOC ---
ED HPI GENERAL MEDICAL PROBLEM - General Chief Complaint: General Stated Complaint: EMS ARRIVAL Time Seen by Provider: 12/08/20 22:30 - History of Present Illness INITIAL COMMENTS - FREE TEXT/NARRATIVE: History of present illness: [] The patient is confused. She knows she is confused. She says she is deteriorating. She called 911. She does not have any severe pain fever or signs of systemic infection at this point. The patient has liver failure and is not on the transplant list she claims she is not drinking currently. She was a drinker in the past. Review of systems: As per history of present illness and below otherwise all systems reviewed and negative. Past medical history: As per history of present illness and as reviewed below otherwise noncontributory. Surgical history: As per history of present illness and as reviewed below otherwise noncontributory. Social history: No reported history of drug or alcohol abuse. Family history: As per history of present illness and as reviewed below otherwise noncontributory. Physical exam: Constitutional - well developed, well-nourished and in no acute distress HEENT - normocephalic, no evidence of trauma - external nose and mouth normal - no mass in neck and no JVD - mucosae moist EYES - full EOM, PERRL, no icterus - no evidence of inflammation, injection, or drainage Respiratory - no respiratory distress, equal bilateral expansion, lungs clear to auscultation and no abnormal lung sounds Cardiovascular - Regular Rhythm with S1 and S2 appreciated and no murmur, gallop or rub. GI - abdomen soft with significant distention and organomegaly - normal bowel sounds - no guard or rebound Musculoskeletal no gross deformity of long bones or joints - no tenderness, swelling or edema Neurologic - Alert and oriented times four - CN II-XII grossly intact - motor sensory and coordination symmetrically normal Psychiatric - appropriate mood and affect with normal thought content Hematologic - No petechiae or purpura - mucosa appropriate color and sclera not pale - normal nail bed color and refill Integument - no rash or evidence of trauma - normal turgor Diagnostics: [] Therapeutics: [] Impression: [] Plan: [] Definitive disposition and diagnosis as appropriate pending reevaluation and review of above. - Related Data Allergies Allergy/AdvReac Type Severity Reaction Status Date / Time hydrocodone Allergy Nausea and Verified 12/08/20 22:02 Vomiting egg or chicken derived drugs Allergy Abdominal Uncoded 12/08/20 22:02 Pain Home Meds: Home Meds ClonazePAM [KlonoPIN] 1 tab PO BID PRN 06/11/15 [History] atenoloL [Atenolol] 1 tab PO DAILY 06/11/15 [History] buPROPion [Wellbutrin XL] 150 mg PO DAILY 10/25/16 [History] atorvaSTATin Calcium [Atorvastatin Calcium] 20 mg DAILY 12/27/17 [History] Ondansetron [Zofran Odt] 8 mg PO Q6H PRN 3 Days #12 tab.rapdis 02/06/19 [Rx] Oseltamivir [Tamiflu] 75 mg PO BID 5 Days #10 cap 02/06/19 [Rx] levoFLOXacin [Levaquin] 750 mg PO DAILY 5 Days #5 tablet 02/06/19 [Rx] Past Medical History HEENT History: Reports: None Other HEENT History: wears glasses Cardiovascular History: Reports: Stents Respiratory History: Reports: None Gastrointestinal History: Reports: GERD Genitourinary History: Reports: None 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 Musculoskeletal History: Reports: Fibromyalgia Neurological History: Reports: None Psychiatric History: Reports: Anxiety, Depression Endocrine/Metabolic History: Reports: None Hematologic History: Reports: None Immunologic History: Reports: None Oncologic (Cancer) History: Reports: None Dermatologic History: Reports: None - Infectious Disease History Infectious Disease History: Reports: Chicken Pox - Past Surgical History Head Surgeries/Procedures: Reports: None HEENT Surgical History: Reports: None Cardiovascular Surgical History: Reports: Coronary Artery Stent, Other (See Below) Other Cardiovascular Surgeries/Procedures: stent placement- denies [place], reports there was a blockage at the age of 40 Respiratory Surgical History: Reports: None GI Surgical History: Reports: Appendectomy Female Surgical History: Reports: Hysterectomy Endocrine Surgical History: Reports: None Neurological Surgical History: Reports: None Musculoskeletal Surgical History: Reports: Carpal Tunnel, Other (See Below) Other Musculoskeletal Surgeries/Procedures:: release of lt. trigger thumb and bilat CTR Oncologic Surgical History: Reports: None Dermatological Surgical History: Reports: None Social & Family History - Family History Family Medical History: No Pertinent Family History Oncologic: Reports: Lymphoma - Tobacco Use Second Hand Smoke Exposure: No - Caffeine Use Caffeine Use: Reports: None Caffeine Use Comment: occasionally - Recreational Drug Use Recreational Drug Use: No ED ROS GENERAL - Review of Systems Review Of Systems: Comprehensive ROS is negative, except as noted in HPI. ED EXAM, GENERAL - Physical Exam Exam: See Below Free Text/Narrative:: Physical exam is in the HPI ED I&D PROCEDURES - I&D Site: Paracentesis Skin prep: Chlorhexidine (Hibiciens) Local anesthesia - Lidocaine (Xylocaine): 1% Plain Local Anesthetic Volume: 5cc Area Incised With: 11 Blade Drainage: Clear Probed to Break Up Loculations: No Progress/Comments: Paracentesis was performed. Ultrasound was used to identify an area of ascites it was abundant with no bowel in the way. This was in the right hypogastrium. Skin was anesthetized after sterile prep. Catheter over the needle was placed after 11 blade used to make an incision. Clear peritoneal fluid obtained and no complications. #1 Interpretation EKG Interpretation Comments: EKG done 12/08/2020 at 10:09 PM shows sinus rhythm heart rate 99 [place] 168 [place] [address] and T normal QT duration 507 impression prolonged QT but otherwise normal EKG Course - Vital Signs Last Recorded V/S: Last Vital Signs Temp 36.9 C 12/09/20 04:29 Pulse 90 12/09/20 05:28 Resp 18 12/09/20 05:28 BP 122/63 12/09/20 05:28 Pulse Ox 96 12/09/20 05:28 - Orders/Labs/Meds Orders: Active Orders 24 hr Category Date Time Status Admission Status [Patient Status] [ADT] Stat ADT 12/09/20 05:38 Ordered ALBUMIN,BODY FLUID [BF] Stat Lab 12/09/20 02:40 Results BODY FLUID, LIPASE Stat Lab 12/09/20 02:40 Received BODY FLUID, SPECIFIC GRAVITY Stat Lab 12/09/20 02:40 Received BODY FLUID, TOTAL BILIRUBIN Stat Lab 12/09/20 02:40 Received GRAM STAIN [RM] Stat Lab 12/09/20 02:40 Received HCG QUALITATIVE,URINE [URCHEM] Stat Lab 12/08/20 22:15 Ordered MISCELLANEOUS CULT [MREF] Stat Lab 12/09/20 02:40 Received UA RFX EMERITA AND CULT IF INDIC [URIN] Stat Lab 12/08/20 22:15 Ordered Sodium Chloride 0.9% [Saline Flush] Med 12/08/20 22:15 Active 10 ml FLUSH ASDIRECTED PRN Sodium Chloride 0.9% [Saline Flush] Med 12/08/20 22:15 Active 2.5 ml FLUSH ASDIRECTED PRN Saline Lock Insert [OM.PC] Stat Oth 12/08/20 22:15 Ordered Medication Orders Sodium Chloride (Sodium Chloride 0.9% 10 Ml Syringe) 10 ml FLUSH ASDIRECTED PRN PRN Reason: Keep Vein Open Sodium Chloride (Sodium Chloride 0.9% 2.5 Ml Syringe) 2.5 ml FLUSH ASDIRECTED PRN PRN Reason: Keep Vein Open Labs: Laboratory Tests 12/08/20 12/08/20 12/08/20 Range/Units 22:00 22:00 22:00 WBC 7.30 (4.0-11.0) K/uL RBC 3.16 L (4.30-5.90) M/uL Hgb 10.9 L (12.0-16.0) g/dL Hct 31.5 L (36.0-46.0) % MCV 99.7 H (80.0-98.0) fL MCH 34.5 H (27.0-32.0) pg MCHC 34.6 (31.0-37.0) g/dL RDW Std Deviation 52.2 (28.0-62.0) fl RDW Coeff of Haley 14 (11.0-15.0) % Plt Count 81 L (150-400) K/uL MPV 10.30 (7.40-12.00) fL Neut % (Auto) 73.1 (48.0-80.0) % Lymph % (Auto) 15.8 L (16.0-40.0) % [place] % (Auto) 10.8 (0.0-15.0) % Eos % (Auto) 0.0 (0.0-7.0) % Baso % (Auto) 0.3 (0.0-1.5) % Neut # (Auto) 5.3 (1.4-5.7) K/uL Lymph # (Auto) 1.2 (0.6-2.4) K/uL [place] # (Auto) 0.8 (0.0-0.8) K/uL Eos # (Auto) 0.0 (0.0-0.7) K/uL Baso # (Auto) 0.0 (0.0-0.1) K/uL Nucleated RBC % 0.0 /100WBC Nucleated RBCs # 0 K/uL INR 1.55 APTT 32.3 H (18.6-31.3) SEC Sodium 131 L (136-145) mmol/L Potassium 3.3 L (3.5-5.1) mmol/L Chloride 95 L (98-107) mmol/L Carbon Dioxide 25.0 (21.0-32.0) mmol/L BUN 14 (7.0-18.0) mg/dL Creatinine 0.8 (0.6-1.0) mg/dL Est Cr Clr Drug Dosing TNP Estimated GFR (MDRD) > 60.0 ml/min Glucose 143 H (74-106) mg/dL Calcium 8.7 (8.5-10.1) mg/dL Total Bilirubin 6.3 H (0.2-1.0) mg/dL AST 49 H (15-37) IU/L ALT 18 (14-63) IU/L Alkaline Phosphatase 65 (46-116) U/L Ammonia (19-54) ug/dL Total Protein 6.8 (6.4-8.2) g/dL Albumin 2.2 L (3.4-5.0) g/dL Globulin 4.6 H (2.6-4.0) g/dL Albumin/Globulin Ratio 0.5 L (0.9-1.6) Lipase 261 (73-393) U/L Fluid Type Fluid Color Fluid Appearance Fluid WBC /uL Fluid RBC /uL Fluid Mononuclear Cell % Fl Polymorphonucl Cell % Fluid Glucose mg/dL Fluid Total Protein g/dL Fluid Albumin g/dL Fluid Amylase U/L SARS-CoV-2 RNA (AMEENA) (NEGATIVE) 12/08/20 12/08/20 12/09/20 Range/Units 22:25 23:00 02:40 WBC (4.0-11.0) K/uL RBC (4.30-5.90) M/uL Hgb (12.0-16.0) g/dL Hct (36.0-46.0) % MCV (80.0-98.0) fL MCH (27.0-32.0) pg MCHC (31.0-37.0) g/dL RDW Std Deviation (28.0-62.0) fl RDW Coeff of Haley (11.0-15.0) % Plt Count (150-400) K/uL MPV (7.40-12.00) fL Neut % (Auto) (48.0-80.0) % Lymph % (Auto) (16.0-40.0) % [place] % (Auto) (0.0-15.0) % Eos % (Auto) (0.0-7.0) % Baso % (Auto) (0.0-1.5) % Neut # (Auto) (1.4-5.7) K/uL Lymph # (Auto) (0.6-2.4) K/uL [place] # (Auto) (0.0-0.8) K/uL Eos # (Auto) (0.0-0.7) K/uL Baso # (Auto) (0.0-0.1) K/uL Nucleated RBC % /100WBC Nucleated RBCs # K/uL INR APTT (18.6-31.3) SEC Sodium (136-145) mmol/L Potassium (3.5-5.1) mmol/L Chloride (98-107) mmol/L Carbon Dioxide (21.0-32.0) mmol/L BUN (7.0-18.0) mg/dL Creatinine (0.6-1.0) mg/dL Est Cr Clr Drug Dosing Estimated GFR (MDRD) ml/min Glucose (74-106) mg/dL Calcium (8.5-10.1) mg/dL Total Bilirubin (0.2-1.0) mg/dL AST (15-37) IU/L ALT (14-63) IU/L Alkaline Phosphatase (46-116) U/L Ammonia 71 H (19-54) ug/dL Total Protein (6.4-8.2) g/dL Albumin (3.4-5.0) g/dL Globulin (2.6-4.0) g/dL Albumin/Globulin Ratio (0.9-1.6) Lipase (73-393) U/L Fluid Type PER Fluid Color YELLOW Fluid Appearance CLEAR Fluid WBC 23 /uL Fluid RBC < 3000 /uL Fluid Mononuclear Cell 74 % Fl Polymorphonucl Cell 26 % Fluid Glucose 131 mg/dL Fluid Total Protein 1.2 g/dL Fluid Albumin g/dL Fluid Amylase 27 U/L SARS-CoV-2 RNA (AMEENA) NEGATIVE (NEGATIVE) 12/09/20 Range/Units 02:40 WBC (4.0-11.0) K/uL RBC (4.30-5.90) M/uL Hgb (12.0-16.0) g/dL Hct (36.0-46.0) % MCV (80.0-98.0) fL MCH (27.0-32.0) pg MCHC (31.0-37.0) g/dL RDW Std Deviation (28.0-62.0) fl RDW Coeff of Haley (11.0-15.0) % Plt Count (150-400) K/uL MPV (7.40-12.00) fL Neut % (Auto) (48.0-80.0) % Lymph % (Auto) (16.0-40.0) % [place] % (Auto) (0.0-15.0) % Eos % (Auto) (0.0-7.0) % Baso % (Auto) (0.0-1.5) % Neut # (Auto) (1.4-5.7) K/uL Lymph # (Auto) (0.6-2.4) K/uL [place] # (Auto) (0.0-0.8) K/uL Eos # (Auto) (0.0-0.7) K/uL Baso # (Auto) (0.0-0.1) K/uL Nucleated RBC % /100WBC Nucleated RBCs # K/uL INR APTT (18.6-31.3) SEC Sodium (136-145) mmol/L Potassium (3.5-5.1) mmol/L Chloride (98-107) mmol/L Carbon Dioxide (21.0-32.0) mmol/L BUN (7.0-18.0) mg/dL Creatinine (0.6-1.0) mg/dL Est Cr Clr Drug Dosing Estimated GFR (MDRD) ml/min Glucose (74-106) mg/dL Calcium (8.5-10.1) mg/dL Total Bilirubin (0.2-1.0) mg/dL AST (15-37) IU/L ALT (14-63) IU/L Alkaline Phosphatase (46-116) U/L Ammonia (19-54) ug/dL Total Protein (6.4-8.2) g/dL Albumin (3.4-5.0) g/dL Globulin (2.6-4.0) g/dL Albumin/Globulin Ratio (0.9-1.6) Lipase (73-393) U/L Fluid Type Fluid Color Fluid Appearance Fluid WBC /uL Fluid RBC /uL Fluid Mononuclear Cell % Fl Polymorphonucl Cell % Fluid Glucose mg/dL Fluid Total Protein g/dL Fluid Albumin 0.3 g/dL Fluid Amylase U/L SARS-CoV-2 RNA (AMEENA) (NEGATIVE) Meds: Medications Generic Name Dose Route Start Last Admin Trade Name Freq PRN Reason Stop Dose Admin Sodium Chloride 10 ml 12/08/20 22:15 Sodium Chloride 0.9% 10 Ml Syringe FLUSH ASDIRECTED PRN Keep Vein Open Sodium Chloride 2.5 ml 12/08/20 22:15 Sodium Chloride 0.9% 2.5 Ml Syringe FLUSH ASDIRECTED PRN Keep Vein Open Discontinued Medications Generic Name Dose Route Start Last Admin Trade Name [place] PRN Reason Stop Dose Admin Folic Acid 1 mg 12/08/20 22:43 12/08/20 23:24 Folic Acid 50 Mg/10 Ml Mdv IV 12/08/20 22:44 1 mg STAT STA Administration Thiamine HCl 100 mg/ Sodium 101 mls @ 202 mls/hr 12/08/20 22:43 12/08/20 23:23 Chloride IV 12/08/20 22:44 Not Given ONETIME ONE Albumin Human 50 mls @ 50 mls/hr 12/09/20 04:30 12/09/20 04:54 Flexbumin 25% IV 12/09/20 05:29 50 mls/hr ONETIME ONE Administration Iopamidol 100 ml 12/09/20 04:15 Iopamidol 755 Mg/Ml 100 Ml Bottle IVPUSH 12/09/20 04:16 ONETIME ONE Lactulose 20 gm 12/09/20 00:53 12/09/20 01:02 Lactulose Soln 10 Gm/15 Ml 15 Ml Ud Cup PO 12/09/20 00:54 20 gm ONETIME ONE Administration Lidocaine HCl 10 ml 12/09/20 01:01 12/09/20 02:49 Lidocaine 1% 5 Ml Sdv INJECT 12/09/20 01:02 Not Given ONETIME ONE Thiamine HCl Confirm 12/08/20 23:16 12/08/20 23:23 Thiamine 200 Mg/2 Ml Mdv Administered 12/08/20 23:17 Not Given Dose 200 mg .ROUTE .STK-MED ONE Thiamine HCl 200 mg 12/08/20 23:19 12/08/20 23:24 Thiamine 200 Mg/2 Ml Mdv IVPUSH 12/08/20 23:20 200 mg ONETIME ONE Administration - Re-Assessments/Exams Free Text/Narrative Re-Assessment/Exam: 12/09/20 04:13 Patient remained stable. Well preparing for CT abdomen we saw left effusion and ordered CT chest as well Free Text/Narrative Re-Assessment/Exam: 12/09/20 05:41 Patient is stable and there are several liters of ascites being drained so initial dose of albumin ordered. She has a large pleural effusion but interventional radiology will be here today. Discussed with Dr. Fleming and admitted Departure - Departure Time of Disposition: 05:42 Disposition: Admitted As Inpatient 68 Condition: Fair Clinical Impression: Ascites, Pleural effusion, left, Liver failure, Hepatic encephalopathy - Discharge Information Referrals: London Yeung MD [Primary Care Provider] - Forms: ED Department Discharge Sepsis Event Note (ED) - Evaluation Sepsis Screening Result: No Definite Risk - Focused Exam Vital Signs: Vital Signs Temp Pulse Resp BP Pulse Ox 12/09/20 05:28 90 18 122/63 96 12/09/20 04:29 36.9 C 96 20 144/75 H 96 12/09/20 03:10 92 18 144/61 H 96 12/09/20 02:50 88 20 142/75 H 96 12/09/20 01:00 88 20 142/70 H 96 12/08/20 22:00 36.8 C 90 20 144/74 H 96 - My Orders Last 24 Hours: My Active Orders 12/09/20 02:40 BODY FLUID, LIPASE Stat BODY FLUID, SPECIFIC GRAVITY Stat BODY FLUID, TOTAL BILIRUBIN Stat GRAM STAIN [RM] Stat MISCELLANEOUS CULT [MREF] Stat 12/09/20 05:38 Admission Status [Patient Status] [ADT] Stat - Assessment/Plan Last 24 Hours: My Active Orders 12/09/20 02:40 BODY FLUID, LIPASE Stat BODY FLUID, SPECIFIC GRAVITY Stat BODY FLUID, TOTAL BILIRUBIN Stat GRAM STAIN [RM] Stat MISCELLANEOUS CULT [MREF] Stat 12/09/20 05:38 Admission Status [Patient Status] [ADT] Stat
[2020-12-08 22:46] LABS: BLOOD UREA NITROGEN,BUN 14 mg/dL (7.0-18.0); CHLORIDE,CL 95 mmol/L (98-107); GLUCOSE RANDOM 143 mg/dL (74-106); LIPASE 261 U/L (73-393); POTASSIUM,K 3.3 mmol/L (3.5-5.1); SODIUM,NA 131 mmol/L (136-145)
[2020-12-08] MEDS ORDERED: Thiamine 200 MG/2 ML MDV ONE (23:16)
[2020-12-08] MEDS ORDERED: Thiamine 200 MG/2 ML MDV IVPUSH ONE (23:19)
[2020-12-09] MEDS ORDERED: Lactulose Soln 10 GM/15 ML 15 ML UD Cup PO ONE ×2 (00:53→05:43)
[2020-12-09] MEDS ORDERED: Albumin 25% 12.5 GM/50 ML Bag IV ONE ×2 (03:58→06:29)
[2020-12-09] MEDS ORDERED: Iopamidol 755 Mg/ML 100 ML Bottle IVPUSH ONE (04:15)
[2020-12-09] MEDS ORDERED: Albumin 25% 50 ML IV ONE ×2 (04:30→06:45)
--- NOTE | 2020-12-09 05:15 | CT ---
INDICATION: Abdominal distention. Ascites. Left effusion. COMPARISON: CT of the chest from 08/07/2010. TECHNIQUE: CT examination of the abdomen and pelvis was performed with the uneventful intravenous administration of 100 cc of Omnipaque 350 while 3 mm thick axial sections were obtained from the lung bases through the pubic symphysis. Oral contrast was not administered. Please note that all CT scans at this facility use dose modulation, iterative reconstruction, and/or weight-based dosing when appropriate to reduce radiation dose to as low as reasonably achievable. FINDINGS: There is new massive ascites with central positioning of the bowel. A right upper quadrant small caliber drain is present with its tip in the ascites along the anterior superior liver. There appears to be a single bubble of free air in the anterior upper abdomen at the midline. In the abdomen, the liver now small and nodular consistent with cirrhosis, a new finding compared to the previous study. The liver measures 15.0 centimeters in length. The spleen is normal in size measuring 11.4 centimeters, with no sign of any mass. The pancreas and adrenals are normal in appearance. There is a 1.1 centimeter cyst in interpolar right kidney. The left kidney is normal in appearance. There is mild cholelithiasis, with several small calcified dependent gallstones in the gallbladder. There is no sign of gallbladder wall thickening or gallbladder wall edema. The abdominal aorta is normal in caliber with no sign of dilatation. There is no sign of retroperitoneal mass or adenopathy. The stomach, loops of small bowel, and colon in the abdomen are normal in appearance. In the pelvis, the appendix is nonvisualized, but there is no sign of an inflammatory process in the area of the appendix. The loops of small bowel and colon in the pelvis are normal in appearance. The uterus is absent and the adnexal regions are normal in appearance. The urinary bladder is normal in appearance. There is no sign of pelvic or inguinal mass or adenopathy. There is no sign of free air or free fluid in the abdomen or pelvis. There is a new large left pleural effusion with moderate compressive atelectasis of the posterior left lower lobe. The right lung base is clear. There is minimal scoliosis of the lumbar spine convex towards the left. The osseous structures are otherwise normal in appearance for the patient`s age. IMPRESSION: New massive ascites. There is a right upper quadrant small caliber drainage catheter. There is a single tiny bubble of free air in the anterior mid abdomen. CT of the abdomen shows small, nodular liver consistent with cirrhosis, a new appearance compared to the previous study. Mild cholelithiasis with nothing seen to suggest acute cholecystitis. CT of the pelvis shows changes of hysterectomy. New large left pleural effusion with new moderate compressive atelectasis of the posterior left lower lobe. Please note that all CT scans at this facility use dose modulation, iterative reconstruction, and/or weight-based dosing when appropriate to reduce radiation dose to as low as reasonably achievable. Dictated by Chris Velasquez MD @ 12/09/2020 5:13:05 AM (Electronically Signed)
--- NOTE | 2020-12-09 05:23 | CT ---
INDICATION: Shortness of breath. COMPARISON: CT of the chest without contrast from 08/07/2010 TECHNIQUE: CT examination of the chest was performed with the uneventful intravenous administration of 100 cc of Isovue 360 while 2 and 3 mm thick axial sections were obtained through the pulmonary arteries. Please note that all CT scans at this facility use dose modulation, iterative reconstruction, and/or weight-based dosing when appropriate to reduce radiation dose to as low as reasonably achievable. FINDINGS: : There is no sign of pulmonary embolism, with normal enhancement and branching of the pulmonary arteries. There is a new large left pleural effusion with fluid occupying approximately 60 percent of the thoracic volume. This is associated with new moderate compressive atelectasis of the posterior left lower lobe and minimal compressive atelectasis of the posterior left upper lobe. The rest of the left lung is clear. On the right, there are 2 mild patchy densities in the lateral aspect of the right upper lobe. While nonspecific, the findings could represent early COVID-19 pneumonia. There is no sign of mediastinal or hilar mass or adenopathy. There is heavy LAD and RCA coronary calcification. There is mild left main coronary calcification. There is minimal LCX coronary calcification. There is age appropriate appearance of the thoracic aorta and ascending great vessels. There is no sign of supraclavicular or axillary mass or adenopathy. As seen on the accompanying CT of the abdomen and pelvis, there is new massive ascites. The liver is now seen to be small and nodular consistent with cirrhosis. The visualized superior spleen is normal in appearance, as are the visualized superior pancreas, kidneys, and adrenals. Again seen is minimal scoliosis of the upper thoracic spine convex towards the left. IMPRESSION: No sign of pulmonary embolism. New large left pleural effusion which occupies approximately 60 percent of the thoracic volume. No midline shift. New prominent atelectasis of the posterior left lower lobe. New mild linear atelectasis of the left upper lobe along the major fissure. Nonspecific mild patchy infiltrates in the anterior-lateral right upper lobe extending to the perihilar region. While nonspecific, these could be from early COVID-19 pneumonia. Please note that all CT scans at this facility use dose modulation, iterative reconstruction, and/or weight-based dosing when appropriate to reduce radiation dose to as low as reasonably achievable. Dictated by Chris Velasquez MD @ 12/09/2020 5:21:58 AM (Electronically Signed)
[2020-12-09] MEDS ORDERED: Ondansetron 4 MG/2 ML SDV IVPUSH PRN (08:40)
[2020-12-09] MEDS ORDERED: Albuterol/Ipratropium 3.0-0.5 MG/3 ML Neb Soln NEB PRN (08:40)
[2020-12-09] MEDS ORDERED: Pantoprazole 40 MG Vial IV SCH (09:00)
--- NOTE | 2020-12-09 09:03 | PCM.HP.2 ---
H&P History of Present Illness - General Date of Service: 12/09/20 Admit Problem/Dx: Admission Diagnosis/Problem Admission Diagnosis/Problem Ascites - History of Present Illness Initial Comments - Free Text/Narative: Initial Comments - Free Text/Narative: Patient is a 59-year-old female who presented to the emergency room via EMS last evening. Patient has past medical history of alcohol abuse, she had become increasingly confused at home, according to her belly was getting more and more bigger. She was at the [facility] in August where they drained almost 7 L of ascites fluid via paracentesis, no etiology for her ascites has been determined, although she does have a history of alcohol use. She has not had a drink for several months. In the ER patient was found to have significant the elevated bilirubin, she was visibly icteric and confused, CT scan showed significant ascites, ER physician was able to perform paracentesis and drain almost 30 L of fluid via a catheter which was indwelling up until this morning and came out later. Patient also had transaminitis. Imaging of the abdomen did not show any acute obstructive stone, CT of the chest did show large left pleural effusion which occupies approximately 60% of the thoracic volume, no midline shift. Patient was admitted to the hospital for hepatic encephalopathy. - Related Data Allergies/Adverse Reactions: Allergies Allergy/AdvReac Type Severity Reaction Status Date / Time hydrocodone Allergy Nausea and Verified 12/09/20 10:17 Vomiting egg or chicken derived drugs Allergy Abdominal Uncoded 12/09/20 10:17 Pain Home Medications: Home Meds ClonazePAM [KlonoPIN] 0.5 mg PO BID PRN 06/11/15 [History] atenoloL [Atenolol] 50 mg PO BID 06/11/15 [History] buPROPion [Wellbutrin XL] 150 mg PO DAILY 10/25/16 [History] atorvaSTATin Calcium [Atorvastatin Calcium] 20 mg DAILY 12/27/17 [History] Ondansetron [Zofran Odt] 8 mg PO Q6H PRN 3 Days #12 tab.rapdis 02/06/19 [Rx] levoFLOXacin [Levaquin] 750 mg PO DAILY 5 Days #5 tablet 02/06/19 [Rx] Furosemide 40 mg PO DAILY 12/09/20 [History] Pantoprazole [ProTONIX] 40 mg PO DAILY 12/09/20 [History] Spironolactone [Aldactone] 50 mg PO DAILY 12/09/20 [History] Past Medical History HEENT History: Reports: None Other HEENT History: wears glasses Cardiovascular History: Reports: Stents Respiratory History: Reports: None Gastrointestinal History: Reports: GERD Genitourinary History: Reports: None [employer] History: Reports: 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 Musculoskeletal History: Reports: Fibromyalgia Neurological History: Reports: None Psychiatric History: Reports: Anxiety, Depression Endocrine/Metabolic History: Reports: None Hematologic History: Reports: None Immunologic History: Reports: None Oncologic (Cancer) History: Reports: None Dermatologic History: Reports: None - Infectious Disease History Infectious Disease History: Reports: Chicken Pox - Past Surgical History Head Surgeries/Procedures: Reports: None HEENT Surgical History: Reports: None Cardiovascular Surgical History: Reports: Coronary Artery Stent, Other (See Below) Other Cardiovascular Surgeries/Procedures: stent placement- denies PA, reports there was a blockage at the age of 40 Respiratory Surgical History: Reports: None GI Surgical History: Reports: Appendectomy Female Surgical History: Reports: Hysterectomy Endocrine Surgical History: Reports: None Neurological Surgical History: Reports: None Musculoskeletal Surgical History: Reports: Carpal Tunnel, Other (See Below) Other Musculoskeletal Surgeries/Procedures:: release of lt. trigger thumb and bilat CTR Oncologic Surgical History: Reports: None Dermatological Surgical History: Reports: None Social & Family History - Family History Family Medical History: No Pertinent Family History Oncologic: Reports: Lymphoma - Tobacco Use Second Hand Smoke Exposure: No - Caffeine Use Caffeine Use: Reports: None Caffeine Use Comment: occasionally - Recreational Drug Use Recreational Drug Use: No H&P Review of Systems - Review of Systems: Review Of Systems: See Below General: Reports: Malaise, Weakness, Fatigue. Denies: Fever, Chills Pulmonary: Denies: Shortness of Breath, Wheezing, Cough Gastrointestinal: Reports: Abdominal Pain, Anorexia, Diarrhea, Decreased Appetite, Distension, Nausea. Denies: Black Stool, Bloody Stool, Constipation, Vomiting Genitourinary: Denies: Dysuria, Frequency Musculoskeletal: Denies: Neck Pain, Shoulder Pain, Arm Pain Skin: Denies: Cyanosis, Jaundice, Mottled Psychiatric: Denies: Confusion, Depression, Mood Lability, Anxiety Neurological: Reports: Confusion. Denies: Dizziness, Headache, Numbness Hematologic/Lymphatic: Denies: Anemia, Easy Bleeding, Easy Bruising, Swollen Glands Exam - Exam Exam: See Below - Vital Signs Vital Signs: Last Vital Signs Temp 36.9 C 12/09/20 04:29 Pulse 92 12/09/20 06:30 Resp 18 12/09/20 06:30 BP 119/59 L 12/09/20 06:30 Pulse Ox 96 12/09/20 06:30 Weight: 65.1 kg - Exam Quality Assessment: No: Supplemental Oxygen General: Alert, Oriented Neck: Supple, Trachea Midline Lungs: Normal Respiratory Effort, Decreased Breath Sounds Cardiovascular: Regular Rate, Regular Rhythm, Normal S1, Normal S2 GI/Abdominal Exam: Soft, Distended, Abnormal Bowel Sounds - Patient Data Lab Results Last 24 hrs: Laboratory Results - last 24 hr 12/08/20 12/08/20 12/08/20 Range/Units 22:00 22:00 22:00 WBC 7.30 (4.0-11.0) K/uL RBC 3.16 L (4.30-5.90) M/uL Hgb 10.9 L (12.0-16.0) g/dL Hct 31.5 L (36.0-46.0) % MCV 99.7 H (80.0-98.0) fL MCH 34.5 H (27.0-32.0) pg MCHC 34.6 (31.0-37.0) g/dL RDW Std Deviation 52.2 (28.0-62.0) fl RDW Coeff of Haley 14 (11.0-15.0) % Plt Count 81 L (150-400) K/uL MPV 10.30 (7.40-12.00) fL Neut % (Auto) 73.1 (48.0-80.0) % Lymph % (Auto) 15.8 L (16.0-40.0) % [place] % (Auto) 10.8 (0.0-15.0) % Eos % (Auto) 0.0 (0.0-7.0) % Baso % (Auto) 0.3 (0.0-1.5) % Neut # (Auto) 5.3 (1.4-5.7) K/uL Lymph # (Auto) 1.2 (0.6-2.4) K/uL [place] # (Auto) 0.8 (0.0-0.8) K/uL Eos # (Auto) 0.0 (0.0-0.7) K/uL Baso # (Auto) 0.0 (0.0-0.1) K/uL Nucleated RBC % 0.0 /100WBC Nucleated RBCs # 0 K/uL INR 1.55 APTT 32.3 H (18.6-31.3) SEC Sodium 131 L (136-145) mmol/L Potassium 3.3 L (3.5-5.1) mmol/L Chloride 95 L (98-107) mmol/L Carbon Dioxide 25.0 (21.0-32.0) mmol/L BUN 14 (7.0-18.0) mg/dL Creatinine 0.8 (0.6-1.0) mg/dL Est Cr Clr Drug Dosing TNP Estimated GFR (MDRD) > 60.0 ml/min Glucose 143 H (74-106) mg/dL Calcium 8.7 (8.5-10.1) mg/dL Total Bilirubin 6.3 H (0.2-1.0) mg/dL AST 49 H (15-37) IU/L ALT 18 (14-63) IU/L Alkaline Phosphatase 65 (46-116) U/L Ammonia (19-54) ug/dL Total Protein 6.8 (6.4-8.2) g/dL Albumin 2.2 L (3.4-5.0) g/dL Globulin 4.6 H (2.6-4.0) g/dL Albumin/Globulin Ratio 0.5 L (0.9-1.6) Lipase 261 (73-393) U/L Fluid Type Fluid Color Fluid Appearance Fluid WBC /uL Fluid RBC /uL Fluid Mononuclear Cell % Fl Polymorphonucl Cell % Fluid Glucose mg/dL Fluid Total Protein g/dL Fluid Albumin g/dL Fluid Amylase U/L SARS-CoV-2 RNA (AMEENA) (NEGATIVE) 12/08/20 12/08/20 12/09/20 Range/Units 22:25 23:00 02:40 WBC (4.0-11.0) K/uL RBC (4.30-5.90) M/uL Hgb (12.0-16.0) g/dL Hct (36.0-46.0) % MCV (80.0-98.0) fL MCH (27.0-32.0) pg MCHC (31.0-37.0) g/dL RDW Std Deviation (28.0-62.0) fl RDW Coeff of Haley (11.0-15.0) % Plt Count (150-400) K/uL MPV (7.40-12.00) fL Neut % (Auto) (48.0-80.0) % Lymph % (Auto) (16.0-40.0) % [place] % (Auto) (0.0-15.0) % Eos % (Auto) (0.0-7.0) % Baso % (Auto) (0.0-1.5) % Neut # (Auto) (1.4-5.7) K/uL Lymph # (Auto) (0.6-2.4) K/uL [place] # (Auto) (0.0-0.8) K/uL Eos # (Auto) (0.0-0.7) K/uL Baso # (Auto) (0.0-0.1) K/uL Nucleated RBC % /100WBC Nucleated RBCs # K/uL INR APTT (18.6-31.3) SEC Sodium (136-145) mmol/L Potassium (3.5-5.1) mmol/L Chloride (98-107) mmol/L Carbon Dioxide (21.0-32.0) mmol/L BUN (7.0-18.0) mg/dL Creatinine (0.6-1.0) mg/dL Est Cr Clr Drug Dosing Estimated GFR (MDRD) ml/min Glucose (74-106) mg/dL Calcium (8.5-10.1) mg/dL Total Bilirubin (0.2-1.0) mg/dL AST (15-37) IU/L ALT (14-63) IU/L Alkaline Phosphatase (46-116) U/L Ammonia 71 H (19-54) ug/dL Total Protein (6.4-8.2) g/dL Albumin (3.4-5.0) g/dL Globulin (2.6-4.0) g/dL Albumin/Globulin Ratio (0.9-1.6) Lipase (73-393) U/L Fluid Type PER Fluid Color YELLOW Fluid Appearance CLEAR Fluid WBC 23 /uL Fluid RBC < 3000 /uL Fluid Mononuclear Cell 74 % Fl Polymorphonucl Cell 26 % Fluid Glucose 131 mg/dL Fluid Total Protein 1.2 g/dL Fluid Albumin g/dL Fluid Amylase 27 U/L SARS-CoV-2 RNA (AMEENA) NEGATIVE (NEGATIVE) 12/09/20 Range/Units 02:40 WBC (4.0-11.0) K/uL RBC (4.30-5.90) M/uL Hgb (12.0-16.0) g/dL Hct (36.0-46.0) % MCV (80.0-98.0) fL MCH (27.0-32.0) pg MCHC (31.0-37.0) g/dL RDW Std Deviation (28.0-62.0) fl RDW Coeff of Haley (11.0-15.0) % Plt Count (150-400) K/uL MPV (7.40-12.00) fL Neut % (Auto) (48.0-80.0) % Lymph % (Auto) (16.0-40.0) % [place] % (Auto) (0.0-15.0) % Eos % (Auto) (0.0-7.0) % Baso % (Auto) (0.0-1.5) % Neut # (Auto) (1.4-5.7) K/uL Lymph # (Auto) (0.6-2.4) K/uL [place] # (Auto) (0.0-0.8) K/uL Eos # (Auto) (0.0-0.7) K/uL Baso # (Auto) (0.0-0.1) K/uL Nucleated RBC % /100WBC Nucleated RBCs # K/uL INR APTT (18.6-31.3) SEC Sodium (136-145) mmol/L Potassium (3.5-5.1) mmol/L Chloride (98-107) mmol/L Carbon Dioxide (21.0-32.0) mmol/L BUN (7.0-18.0) mg/dL Creatinine (0.6-1.0) mg/dL Est Cr Clr Drug Dosing Estimated GFR (MDRD) ml/min Glucose (74-106) mg/dL Calcium (8.5-10.1) mg/dL Total Bilirubin (0.2-1.0) mg/dL AST (15-37) IU/L ALT (14-63) IU/L Alkaline Phosphatase (46-116) U/L Ammonia (19-54) ug/dL Total Protein (6.4-8.2) g/dL Albumin (3.4-5.0) g/dL Globulin (2.6-4.0) g/dL Albumin/Globulin Ratio (0.9-1.6) Lipase (73-393) U/L Fluid Type Fluid Color Fluid Appearance Fluid WBC /uL Fluid RBC /uL Fluid Mononuclear Cell % Fl Polymorphonucl Cell % Fluid Glucose mg/dL Fluid Total Protein g/dL Fluid Albumin 0.3 g/dL Fluid Amylase U/L SARS-CoV-2 RNA (AMEENA) (NEGATIVE) Result Diagrams: 12/08/20 22:00 12/08/20 22:00 Sepsis Event Note - Evaluation Sepsis Screening Result: No Definite Risk - Focused Exam Vital Signs: Vital Signs Temp Pulse Resp BP Pulse Ox 12/09/20 06:30 92 18 119/59 L 96 12/09/20 05:28 90 18 122/63 96 12/09/20 04:29 36.9 C 96 20 144/75 H 96 12/09/20 03:10 92 18 144/61 H 96 12/09/20 02:50 88 20 142/75 H 96 12/09/20 01:00 88 20 142/70 H 96 12/08/20 22:00 36.8 C 90 20 144/74 H 96 - Problem List (1) Ascites SNOMED Code(s): 091096905 ICD Code: R18.8 - OTHER ASCITES Status: Acute Priority: High Current Visit: Yes Qualifiers: Ascites type: other type Qualified Code(s): R18.8 - Other ascites (2) Hepatic encephalopathy SNOMED Code(s): 11445714 ICD Code: K72.90 - HEPATIC FAILURE, UNSPECIFIED WITHOUT COMA Status: Acute Priority: High Current Visit: Yes (3) Liver failure SNOMED Code(s): 95869169 ICD Code: K72.90 - HEPATIC FAILURE, UNSPECIFIED WITHOUT COMA Status: Acute Priority: High Current Visit: Yes Qualifiers: Hepatic coma status: without hepatic coma (4) Pleural effusion, left SNOMED Code(s): 34050347 ICD Code: J90 - PLEURAL EFFUSION, NOT ELSEWHERE CLASSIFIED Status: Acute Priority: High Current Visit: Yes Problem List Initiated/Reviewed/Updated: Yes Orders Last 24hrs: Active Orders 24 hr Category Date Time Status Admission Status [Patient Status] [ADT] Stat ADT 12/09/20 05:38 Active Ambulate [RC] ASDIRECTED Care 12/09/20 08:40 Active Antiembolic Devices [RC] PER UNIT ROUTINE Care 12/09/20 08:41 Active Oxygen Therapy [RC] PRN Care 12/09/20 08:40 Active Pulse Oximetry [RC] PRN Care 12/09/20 08:41 Active RT Aerosol Therapy [RC] ASDIRECTED Care 12/09/20 08:42 Active Telemetry Monitoring [Cardiac Monitoring] [RC] Q8H Care 12/09/20 06:07 Active VTE/DVT Education [RC] PER UNIT ROUTINE Care 12/09/20 08:40 Active Vital Signs [RC] Q4H Care 12/09/20 08:40 Active Nothing per Oral Now Diet [DIET] Diet 12/09/20 Breakfast Active ALBUMIN,BODY FLUID [BF] Stat Lab 12/09/20 02:40 Results BODY FLUID, LIPASE Stat Lab 12/09/20 02:40 Received BODY FLUID, SPECIFIC GRAVITY Stat Lab 12/09/20 02:40 Received BODY FLUID, TOTAL BILIRUBIN Stat Lab 12/09/20 02:40 Received GRAM STAIN [RM] Stat Lab 12/09/20 02:40 Received HCG QUALITATIVE,URINE [URCHEM] Stat Lab 12/08/20 22:15 Ordered MISCELLANEOUS CULT [MREF] Stat Lab 12/09/20 02:40 Received UA RFX EMERITA AND CULT IF INDIC [URIN] Stat Lab 12/08/20 22:15 Ordered VANCOMYCIN TROUGH [CHEM] Timed Lab 12/10/20 09:00 Ordered Albuterol/Ipratropium [DuoNeb 3.0-0.5 MG/3 ML] Med 12/09/20 08:40 Active 3 ml NEB Q4HRRT PRN Lactulose [Chronulac] Med 12/09/20 21:00 Active 10 gm PO BID Ondansetron [Zofran] Med 12/09/20 08:40 Active 4 mg IVPUSH Q4H PRN Pantoprazole [ProTONIX IV] 40 mg Med 12/09/20 09:00 Active Sodium Chloride 0.9% [Normal Saline] 10 ml IV Q12HR Pharmacy to Dose - Vancomycin Med 12/09/20 08:45 Active 1 dose .XX ASDIRECTED Piperacillin/Tazobactam [Piperacil-Tazobact] 3.375 gm Med 12/09/20 09:00 Active Sodium Chloride 0.9% [Normal Saline AdvBag] 50 ml IV Q8H Sodium Chloride 0.9% [Saline Flush] Med 12/08/20 22:15 Active 10 ml FLUSH ASDIRECTED PRN Sodium Chloride 0.9% [Saline Flush] Med 12/08/20 22:15 Active 2.5 ml FLUSH ASDIRECTED PRN Vancomycin 1 gm Med 12/09/20 09:30 Active Sodium Chloride 0.9% [Normal Saline AdvBag] 250 ml IV Q8H Saline Lock Insert [OM.PC] Stat Oth 12/08/20 22:15 Ordered Sequential Compression Device [OM.PC] Per Unit Routine Oth 12/09/20 08:41 Ordered Medication Orders Albuterol/Ipratropium (Albuterol/Ipratropium 3.0-0.5 Mg/3 Ml Neb Soln) 3 ml NEB Q4HRRT PRN PRN Reason: Shortness Of Breath/wheezing Piperacillin Sod/Tazobactam (Sod 3.375 gm/ Sodium Chloride) 50 mls @ 100 mls/hr IV Q8H BRANDO Pantoprazole Sodium 40 mg/ (Sodium Chloride) 10 mls @ 300 mls/hr IV Q12HR BRANDO Vancomycin HCl 1 gm/ Sodium (Chloride) 250 mls @ 250 mls/hr IV Q8H BRANDO Lactulose (Lactulose Soln 10 Gm/15 Ml 15 Ml Ud Cup) 10 gm PO BID BRANDO Ondansetron HCl (Ondansetron 4 Mg/2 Ml Sdv) 4 mg IVPUSH Q4H PRN PRN Reason: Nausea/Vomiting Sodium Chloride (Sodium Chloride 0.9% 10 Ml Syringe) 10 ml FLUSH ASDIRECTED PRN PRN Reason: Keep Vein Open Sodium Chloride (Sodium Chloride 0.9% 2.5 Ml Syringe) 2.5 ml FLUSH ASDIRECTED PRN PRN Reason: Keep Vein Open Vancomycin HCl (Pharmacy To Dose - Vancomycin) 1 dose .XX ASDIRECTED BRANDO Assessment/Plan Comment:: 59-year-old female admitted for hepatic encephalopathy , patient has liver cirrhosis on imaging likely secondary to previous history of alcohol abuse Status post paracentesis 30 L of fluids were obtained Patient received some IV infusion of albumin for fluid resuscitation Patient has been started on lactulose for elevated ammonia Mentation is slightly better patient was able to answer basic questions I did talk with Dr. Todd for possible thoracentesis given the extent of the size of the effusion, upon reviewing the chart and talking with the family it was decided to hold off on the thoracentesis given that patient is a high bleeding risk and also is not currently needing oxygen and is compensating well for the effusion. Patient has been n.p.o., will start some clear diet and see how she tolerates Continue to monitor closely
[2020-12-09] MEDS: Pantoprazole 40 MG in Sodium Chloride 0.9% 10 ML IV SCH ×2 (09:58→21:24)
[2020-12-09] MEDS: Piperacillin/Tazobactam 3.375 GM in Sodium Chloride 0.9% 50 ML IV SCH ×2 (09:58→17:51)
--- NOTE | 2020-12-09 18:22 | PCM.CONS ---
H&P History of Present Illness - General Date of Service: 12/09/20 Admit Problem/Dx: Admission Diagnosis/Problem Admission Diagnosis/Problem Ascites, left pleural effusion Source of Information: Family History Limitations: Reports: Altered Mental Status - History of Present Illness Initial Comments - Free Text/Narative: Patient is a 59-year-old female who presented to the emergency room via EMS last evening. She had become quite confused and was found to have significant recurrent ascites. She was at the [facility]. This summer and in August had a 7 L paracentesis. No etiology for her ascites has been determined, although she does have a history of alcohol use. She has not had a drink for several months. There has been no history of GI bleeding or esophageal varices. Duration of Symptoms: Reports: Week(s): Location: Reports: Chest, Abdomen Quality: Reports: Pressure Severity: Severe Improves with: Reports: None Worsens with: Reports: None Associated Symptoms: Reports: Confusion, Loss of Appetite, Malaise, Weakness. Denies: Chest Pain, Cough, cough w sputum - Related Data Allergies/Adverse Reactions: Allergies Allergy/AdvReac Type Severity Reaction Status Date / Time hydrocodone Allergy Nausea and Verified 12/09/20 10:17 Vomiting egg or chicken derived drugs Allergy Abdominal Uncoded 12/09/20 10:17 Pain Home Medications: Home Meds ClonazePAM [KlonoPIN] 0.5 mg PO BID PRN 06/11/15 [History] atenoloL [Atenolol] 50 mg PO BID 06/11/15 [History] buPROPion [Wellbutrin XL] 150 mg PO DAILY 10/25/16 [History] atorvaSTATin Calcium [Atorvastatin Calcium] 20 mg DAILY 12/27/17 [History] Ondansetron [Zofran Odt] 8 mg PO Q6H PRN 3 Days #12 tab.rapdis 02/06/19 [Rx] levoFLOXacin [Levaquin] 750 mg PO DAILY 5 Days #5 tablet 02/06/19 [Rx] Furosemide 40 mg PO DAILY 12/09/20 [History] Pantoprazole [ProTONIX] 40 mg PO DAILY 12/09/20 [History] Spironolactone [Aldactone] 50 mg PO DAILY 12/09/20 [History] Past Medical History HEENT History: Reports: None Other HEENT History: wears glasses Cardiovascular History: Reports: Stents Respiratory History: Reports: None Gastrointestinal History: Reports: GERD Genitourinary History: Reports: None 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: Reports: 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 Musculoskeletal History: Reports: Fibromyalgia Neurological History: Reports: None Psychiatric History: Reports: Anxiety, Depression Endocrine/Metabolic History: Reports: None Hematologic History: Reports: None Immunologic History: Reports: None Oncologic (Cancer) History: Reports: None Dermatologic History: Reports: None - Infectious Disease History Infectious Disease History: Reports: Chicken Pox - Past Surgical History Head Surgeries/Procedures: Reports: None HEENT Surgical History: Reports: None Cardiovascular Surgical History: Reports: Coronary Artery Stent, Other (See Below) Other Cardiovascular Surgeries/Procedures: stent placement- denies ME, reports there was a blockage at the age of 40 Respiratory Surgical History: Reports: None GI Surgical History: Reports: Appendectomy Female Surgical History: Reports: Hysterectomy Endocrine Surgical History: Reports: None Neurological Surgical History: Reports: None Musculoskeletal Surgical History: Reports: Carpal Tunnel, Other (See Below) Other Musculoskeletal Surgeries/Procedures:: release of lt. trigger thumb and bilat CTR Oncologic Surgical History: Reports: None Dermatological Surgical History: Reports: None Social & Family History - Family History Family Medical History: No Pertinent Family History Oncologic: Reports: Lymphoma - Tobacco Use Tobacco Use Status *Q: Current Every Day Tobacco User Years of Tobacco use: 30 Packs/Tins Daily: 1 Second Hand Smoke Exposure: No - Caffeine Use Caffeine Use: Reports: Coffee Caffeine Use Comment: occasionally - Recreational Drug Use Recreational Drug Use: No H&P Review of Systems - Review of Systems: Review Of Systems: See Below General: Reports: Malaise, Weakness, Fatigue, Weight Loss. Denies: Fever, Chills HEENT: Reports: No Symptoms Pulmonary: Denies: Shortness of Breath, Wheezing Cardiovascular: Denies: Chest Pain, Palpitations, Dyspnea on Exertion, Orthopnea, PND, Edema Gastrointestinal: Reports: Abdominal Pain, Anorexia, Decreased Appetite, Distension, Flatus. Denies: Black Stool, Bloody Stool, Constipation, Diarrhea, Difficulty Swallowing, Hematemesis, Hematochezia, Melena, Nausea, Vomiting Genitourinary: Denies: Dysuria, Frequency, Burning, Pain, Urgency Musculoskeletal: Reports: No Symptoms Skin: Reports: Jaundice, Pallor, Bruising. Denies: Cyanosis, Mottled, Diaphoresis, Dryness, Pruritis, Rash, Erythema, Wound Psychiatric: Reports: Confusion. Denies: Depression, Mood Lability, Anxiety Neurological: Reports: Confusion, Trouble Speaking, Difficulty Walking, Weakness. Denies: Dizziness, Headache, Seizure, Syncope Hematologic/Lymphatic: Reports: Anemia, Easy Bruising. Denies: Easy Bleeding Immunologic: Reports: No Symptoms Exam - Exam Exam: See Below - Vital Signs Vital Signs: Last Vital Signs Temp 97.0 F 12/09/20 16:00 Pulse 88 12/09/20 16:00 Resp 20 12/09/20 16:00 BP 141/69 H 12/09/20 16:00 Pulse Ox 98 12/09/20 16:00 Weight: 143 lb 8.335 oz - Exam Quality Assessment: DVT Prophylaxis. No: Supplemental Oxygen, Central Line/PICC, Urinary Catheter, Skin Breakdown General: Lethargic HEENT: Conjunctiva Clear, Pupils Equal, Pupils Reactive, Scleral Icterus Neck: Supple Lungs: Normal Respiratory Effort, Decreased Breath Sounds (left lung). No: Crackles, Rales, Rhonchi, Rub, Stridor, Wheezing Cardiovascular: Regular Rate, Regular Rhythm, Normal S1, Normal S2. No: Tachycardia GI/Abdominal Exam: Soft, Distended, Tender, Abnormal Bowel Sounds. No: Guarding, Rigid, Rebound, Hernia, Mass, Hepatomegaly, Splenomegaly (Female) Exam: Deferred Rectal (Female) Exam: Deferred Back Exam: Normal Inspection Extremities: Mottled, Pallor Peripheral Pulses: 3+: Posterior Tibial (L), Posterior Tibial (R), Dorsalis Pedis (L), Dorsalis Pedis (R) Skin: Warm, Dry, Intact Neurological: Cranial Nerves Intact Neuro Extensive - Mental Status: Slow Response to Commands Psychiatric: Depressed - Patient Data Lab Results Last 24 hrs: Laboratory Results - last 24 hr 12/08/20 12/08/20 12/08/20 Range/Units 22:00 22:00 22:00 WBC 7.30 (4.0-11.0) K/uL RBC 3.16 L (4.30-5.90) M/uL Hgb 10.9 L (12.0-16.0) g/dL Hct 31.5 L (36.0-46.0) % MCV 99.7 H (80.0-98.0) fL MCH 34.5 H (27.0-32.0) pg MCHC 34.6 (31.0-37.0) g/dL RDW Std Deviation 52.2 (28.0-62.0) fl RDW Coeff of Haley 14 (11.0-15.0) % Plt Count 81 L (150-400) K/uL MPV 10.30 (7.40-12.00) fL Neut % (Auto) 73.1 (48.0-80.0) % Lymph % (Auto) 15.8 L (16.0-40.0) % [place] % (Auto) 10.8 (0.0-15.0) % Eos % (Auto) 0.0 (0.0-7.0) % Baso % (Auto) 0.3 (0.0-1.5) % Neut # (Auto) 5.3 (1.4-5.7) K/uL Lymph # (Auto) 1.2 (0.6-2.4) K/uL [place] # (Auto) 0.8 (0.0-0.8) K/uL Eos # (Auto) 0.0 (0.0-0.7) K/uL Baso # (Auto) 0.0 (0.0-0.1) K/uL Nucleated RBC % 0.0 /100WBC Nucleated RBCs # 0 K/uL INR 1.55 APTT 32.3 H (18.6-31.3) SEC Sodium 131 L (136-145) mmol/L Potassium 3.3 L (3.5-5.1) mmol/L Chloride 95 L (98-107) mmol/L Carbon Dioxide 25.0 (21.0-32.0) mmol/L BUN 14 (7.0-18.0) mg/dL Creatinine 0.8 (0.6-1.0) mg/dL Est Cr Clr Drug Dosing TNP Estimated GFR (MDRD) > 60.0 ml/min Glucose 143 H (74-106) mg/dL POC Glucose (70-99) mg/dL Calcium 8.7 (8.5-10.1) mg/dL Total Bilirubin 6.3 H (0.2-1.0) mg/dL AST 49 H (15-37) IU/L ALT 18 (14-63) IU/L Alkaline Phosphatase 65 (46-116) U/L Ammonia (19-54) ug/dL Total Protein 6.8 (6.4-8.2) g/dL Albumin 2.2 L (3.4-5.0) g/dL Globulin 4.6 H (2.6-4.0) g/dL Albumin/Globulin Ratio 0.5 L (0.9-1.6) Lipase 261 (73-393) U/L Fluid Type Fluid Color Fluid Appearance Fluid WBC /uL Fluid RBC /uL Fluid Mononuclear Cell % Fl Polymorphonucl Cell % Fluid Glucose mg/dL Fluid Total Protein g/dL Fluid Albumin g/dL Fluid Amylase U/L SARS-CoV-2 RNA (AMEENA) (NEGATIVE) 12/08/20 12/08/20 12/09/20 Range/Units 22:25 23:00 02:40 WBC (4.0-11.0) K/uL RBC (4.30-5.90) M/uL Hgb (12.0-16.0) g/dL Hct (36.0-46.0) % MCV (80.0-98.0) fL MCH (27.0-32.0) pg MCHC (31.0-37.0) g/dL RDW Std Deviation (28.0-62.0) fl RDW Coeff of Haley (11.0-15.0) % Plt Count (150-400) K/uL MPV (7.40-12.00) fL Neut % (Auto) (48.0-80.0) % Lymph % (Auto) (16.0-40.0) % [place] % (Auto) (0.0-15.0) % Eos % (Auto) (0.0-7.0) % Baso % (Auto) (0.0-1.5) % Neut # (Auto) (1.4-5.7) K/uL Lymph # (Auto) (0.6-2.4) K/uL [place] # (Auto) (0.0-0.8) K/uL Eos # (Auto) (0.0-0.7) K/uL Baso # (Auto) (0.0-0.1) K/uL Nucleated RBC % /100WBC Nucleated RBCs # K/uL INR APTT (18.6-31.3) SEC Sodium (136-145) mmol/L Potassium (3.5-5.1) mmol/L Chloride (98-107) mmol/L Carbon Dioxide (21.0-32.0) mmol/L BUN (7.0-18.0) mg/dL Creatinine (0.6-1.0) mg/dL Est Cr Clr Drug Dosing Estimated GFR (MDRD) ml/min Glucose (74-106) mg/dL POC Glucose (70-99) mg/dL Calcium (8.5-10.1) mg/dL Total Bilirubin (0.2-1.0) mg/dL AST (15-37) IU/L ALT (14-63) IU/L Alkaline Phosphatase (46-116) U/L Ammonia 71 H (19-54) ug/dL Total Protein (6.4-8.2) g/dL Albumin (3.4-5.0) g/dL Globulin (2.6-4.0) g/dL Albumin/Globulin Ratio (0.9-1.6) Lipase (73-393) U/L Fluid Type PER Fluid Color YELLOW Fluid Appearance CLEAR Fluid WBC 23 /uL Fluid RBC < 3000 /uL Fluid Mononuclear Cell 74 % Fl Polymorphonucl Cell 26 % Fluid Glucose 131 mg/dL Fluid Total Protein 1.2 g/dL Fluid Albumin g/dL Fluid Amylase 27 U/L SARS-CoV-2 RNA (AMEENA) NEGATIVE (NEGATIVE) 12/09/20 12/09/20 Range/Units 02:40 17:49 WBC (4.0-11.0) K/uL RBC (4.30-5.90) M/uL Hgb (12.0-16.0) g/dL Hct (36.0-46.0) % MCV (80.0-98.0) fL MCH (27.0-32.0) pg MCHC (31.0-37.0) g/dL RDW Std Deviation (28.0-62.0) fl RDW Coeff of Haley (11.0-15.0) % Plt Count (150-400) K/uL MPV (7.40-12.00) fL Neut % (Auto) (48.0-80.0) % Lymph % (Auto) (16.0-40.0) % [place] % (Auto) (0.0-15.0) % Eos % (Auto) (0.0-7.0) % Baso % (Auto) (0.0-1.5) % Neut # (Auto) (1.4-5.7) K/uL Lymph # (Auto) (0.6-2.4) K/uL [place] # (Auto) (0.0-0.8) K/uL Eos # (Auto) (0.0-0.7) K/uL Baso # (Auto) (0.0-0.1) K/uL Nucleated RBC % /100WBC Nucleated RBCs # K/uL INR APTT (18.6-31.3) SEC Sodium (136-145) mmol/L Potassium (3.5-5.1) mmol/L Chloride (98-107) mmol/L Carbon Dioxide (21.0-32.0) mmol/L BUN (7.0-18.0) mg/dL Creatinine (0.6-1.0) mg/dL Est Cr Clr Drug Dosing Estimated GFR (MDRD) ml/min Glucose (74-106) mg/dL POC Glucose 140 H (70-99) mg/dL Calcium (8.5-10.1) mg/dL Total Bilirubin (0.2-1.0) mg/dL AST (15-37) IU/L ALT (14-63) IU/L Alkaline Phosphatase (46-116) U/L Ammonia (19-54) ug/dL Total Protein (6.4-8.2) g/dL Albumin (3.4-5.0) g/dL Globulin (2.6-4.0) g/dL Albumin/Globulin Ratio (0.9-1.6) Lipase (73-393) U/L Fluid Type PER Fluid Color Fluid Appearance Fluid WBC /uL Fluid RBC /uL Fluid Mononuclear Cell % Fl Polymorphonucl Cell % Fluid Glucose mg/dL Fluid Total Protein g/dL Fluid Albumin 0.3 g/dL Fluid Amylase U/L SARS-CoV-2 RNA (AMEENA) (NEGATIVE) Result Diagrams: 12/08/20 22:00 12/08/20 22:00 Sepsis Event Note - Evaluation Sepsis Screening Result: Possible Sepsis Risk - Focused Exam Vital Signs: Vital Signs Temp Pulse Resp BP Pulse Ox Pulse Ox 12/09/20 16:00 97.0 F 88 20 141/69 H 98 12/09/20 11:46 97.7 F 102 H 22 H 152/66 H 91 L 12/09/20 09:33 93 L 12/09/20 08:40 92 L 12/09/20 06:30 92 18 119/59 L 96 Consult PN Assessment/Plan Procedures: Procedures AIRWAY INHALATION TREATMENT (02/04/19) ASSAY OF LACTIC ACID (10/25/16) ASSAY OF LIPASE (12/27/17) ASSAY OF MAGNESIUM (02/04/19) ASSAY OF NATRIURETIC PEPTIDE (08/23/17) ASSAY OF PHOSPHORUS (02/04/19) ASSAY OF TROPONIN QUANT (12/27/17) ASSAY THYROID STIM HORMONE (12/25/15) BLOOD CULTURE FOR BACTERIA (02/04/19) BLOOD TRANSFUSION SERVICE (12/27/17) BLOOD TYPING SEROLOGIC ABO (12/27/17) BLOOD TYPING SEROLOGIC RH(D) (12/27/17) CHEST X-RAY 1 VIEW FRONTAL (12/25/15) COMP SCREEN MAMMOGRAM ADD-ON (06/02/15) COMPATIBILITY TEST ANTIGLOB (12/27/17) COMPATIBILITY TEST INCUBATE (12/27/17) COMPATIBILITY TEST SPIN (12/27/17) COMPLETE CBC W/AUTO DIFF WBC (02/04/19) COMPREHEN METABOLIC PANEL (02/04/19) CREATINE MB FRACTION (08/23/17) CT HEAD/BRAIN W/O DYE (12/25/15) EGD BIOPSY SINGLE/MULTIPLE (06/16/15) ELECTROCARDIOGRAM TRACING (12/27/17) EMERGENCY DEPT VISIT (02/04/19) EMERGENCY DEPT VISIT (10/25/16) EMERGENCY DEPT VISIT (12/25/15) EMERGENCY DEPT VISIT (05/19/14) FIBRIN DEGRADATION QUANT (12/25/15) GLUCOSE BLOOD TEST (02/04/19) HYDRATE IV INFUSION ADD-ON (02/04/19) INFLUENZA ASSAY W/OPTIC (02/04/19) PROTHROMBIN TIME (12/27/17) RBC ANTIBODY SCREEN (12/27/17) ROUTINE VENIPUNCTURE (02/04/19) SPECIAL STAINS GROUP 1 (06/16/15) THER/DIAG CONCURRENT INF (12/27/17) THER/PROPH/DIAG INJ IV PUSH (08/23/17) THER/PROPH/DIAG INJ SC/IM (05/19/14) THER/PROPH/DIAG IV INF ADDON (02/04/19) THER/PROPH/DIAG IV INF INIT (02/04/19) TISSUE EXAM BY PATHOLOGIST (06/16/15) TTE W/DOPPLER COMPLETE (12/21/17) TX/PRO/DX INJ NEW DRUG ADDON (02/04/19) TX/PRO/DX INJ SAME DRUG MAGAZINE PUBLISHER (02/04/19) TX/PROPH/DG ADDL SEQ IV INF (02/04/19) URINALYSIS AUTO W/O SCOPE (02/04/19) URINALYSIS AUTO W/SCOPE (12/27/17) URINE CULTURE/COLONY COUNT (12/27/17) US COMPL JOINT R-T W/IMG (10/25/16) X-RAY EXAM CHEST 1 VIEW (08/23/17) X-RAY EXAM CHEST 2 VIEWS (02/04/19) X-RAY EXAM OF LOWER LEG (10/25/16) (1) Ascites SNOMED Code(s): 262590113 Code(s): R18.8 - OTHER ASCITES Priority: High Current Visit: Yes Qualifiers: Ascites type: other type Qualified Code(s): R18.8 - Other ascites (2) Hepatic encephalopathy SNOMED Code(s): 00483074 Code(s): K72.90 - HEPATIC FAILURE, UNSPECIFIED WITHOUT COMA Priority: High Current Visit: Yes (3) Liver failure SNOMED Code(s): 22724790 Code(s): K72.90 - HEPATIC FAILURE, UNSPECIFIED WITHOUT COMA Priority: High Current Visit: Yes Qualifiers: Hepatic coma status: without hepatic coma (4) Pleural effusion, left SNOMED Code(s): 55049552 Code(s): J90 - PLEURAL EFFUSION, NOT ELSEWHERE CLASSIFIED Priority: High Current Visit: Yes Problem List Initiated/Reviewed/Updated: Yes Plan: Patient seen and examined. All studies reviewed personally. Patient currently does not require oxygen support. She does have markedly diminished breath sounds on the left side consistent with a left pleural effusion. She did undergo a 9 L paracentesis in the emergency room last evening. I was asked to see her regarding the left pleural effusion. Given the fact that she is not short of breath and struggling for air nor requiring oxygen. I think we should be very conservative in performing a left thoracentesis. She does require oxygen, or become short of breath, or struggle to breathe, then consideration could be given to a thoracentesis. I have carefully explained this to her and daughter. They are aware that there is at least a 1% chance of a pneumothorax associated with thoracentesis. The patient herself is very weak and cachectic. I do note her bilirubin is 6.3, and she has a profound serum ammonia level of 71. I think conservative comfort care measures are the most appropriate at the present time. I would be happy to reconsider thoracentesis in the future if necessary.
[2020-12-09] MEDS: Lactulose Soln 10 GM/15 ML 15 ML UD Cup PO SCH (21:24)
[2020-12-10] MEDS: Piperacillin/Tazobactam 3.375 GM in Sodium Chloride 0.9% 50 ML IV SCH ×3 (00:32→16:49)
[2020-12-10 06:19] LABS: BLOOD UREA NITROGEN,BUN 11 mg/dL (7.0-18.0); CARBON DIOXIDE,CO2 25.9 mmol/L (21.0-32.0); CHLORIDE,CL 98 mmol/L (98-107); GLUCOSE RANDOM 143 mg/dL (74-106); SODIUM,NA 136 mmol/L (136-145)
[2020-12-10 06:22] LABS: POTASSIUM,K 2.3 mmol/L (3.5-5.1)
[2020-12-10] MEDS ORDERED: LACTATED RINGERS IV ONE ×2 (06:32→07:15)
[2020-12-10] MEDS ORDERED: POTASSIUM CHLORIDE IV ONE ×2 (06:32→07:15)
[2020-12-10] MEDS ORDERED: DEXTROSE 5% IV ONE ×3 (06:32→11:15)
[2020-12-10] MEDS ORDERED: Magnesium Sulfate/Water 4 GM in Premix Bag 1 BAG IV ONE (06:33)
[2020-12-10] MEDS ORDERED: Phosphorus #1 250 MG Tab PO ONE (06:33)
[2020-12-10] MEDS: Pantoprazole 40 MG in Sodium Chloride 0.9% 10 ML IV SCH ×2 (08:01→20:48)
[2020-12-10] MEDS: Lactulose Soln 10 GM/15 ML 15 ML UD Cup PO SCH ×3 (08:41→22:28)
[2020-12-10] MEDS ORDERED: POTASSIUM CHLORIDE 20 MEQ IV ONE (11:15)
[2020-12-10] MEDS ORDERED: RINGERS IV ONE (11:15)
--- NOTE | 2020-12-10 14:51 | PCM.PN ---
<Yuliet Soni - Last Filed: 12/10/20 15:13> - General Info Date of Service: 12/10/20 Admission Dx/Problem (Free Text): Admission Diagnosis/Problem Admission Diagnosis/Problem Ascites Subjective Update: 59-year-old female admitted for liver cirrhosis, hepatic encephalopathy, ascites and pleural effusions. This morning patient is not alert or oriented. She remains altered but intubation is not indicated. In the ER, 9 L of ascitic fluid was drained. Patient has a left pleural effusion. Patient does not appear to be in any distress. Patient unresponsive to answer questions. She is joined by her at the bedside. Functional Status: Reports: Other - Review of Systems General: Reports: Other (Unable to obtain.) - Patient Data Vitals - Most Recent: Last Vital Signs Temp 98.5 F 12/10/20 08:00 Pulse 70 12/10/20 08:00 Resp 16 12/10/20 08:00 BP 162/74 H 12/10/20 08:00 Pulse Ox 98 12/10/20 08:00 Weight - Most Recent: 65.1 kg I&O - Last 24 Hours: Intake & Output 12/09/20 12/10/20 12/10/20 22:59 06:59 14:59 Intake Total 0 Output Total 0 Balance 0 Lab Results Last 24 Hours: Laboratory Results - last 24 hr 12/09/20 12/09/20 12/09/20 Range/Units 02:40 02:40 02:40 WBC (4.0-11.0) K/uL RBC (4.30-5.90) M/uL Hgb (12.0-16.0) g/dL Hct (36.0-46.0) % MCV (80.0-98.0) fL MCH (27.0-32.0) pg MCHC (31.0-37.0) g/dL RDW Std Deviation (28.0-62.0) fl RDW Coeff of Haley (11.0-15.0) % Plt Count (150-400) K/uL MPV (7.40-12.00) fL Neut % (Auto) (48.0-80.0) % Lymph % (Auto) (16.0-40.0) % [place] % (Auto) (0.0-15.0) % Eos % (Auto) (0.0-7.0) % Baso % (Auto) (0.0-1.5) % Neut # (Auto) (1.4-5.7) K/uL Lymph # (Auto) (0.6-2.4) K/uL [place] # (Auto) (0.0-0.8) K/uL Eos # (Auto) (0.0-0.7) K/uL Baso # (Auto) (0.0-0.1) K/uL Nucleated RBC % /100WBC Nucleated RBCs # K/uL INR Sodium (136-145) mmol/L Potassium (3.5-5.1) mmol/L Chloride (98-107) mmol/L Carbon Dioxide (21.0-32.0) mmol/L BUN (7.0-18.0) mg/dL Creatinine (0.6-1.0) mg/dL Est Cr Clr Drug Dosing mL/min Estimated GFR (MDRD) ml/min Glucose (74-106) mg/dL POC Glucose (70-99) mg/dL Calcium (8.5-10.1) mg/dL Phosphorus (2.6-4.7) mg/dL Magnesium (1.8-2.4) mg/dL Total Bilirubin (0.2-1.0) mg/dL AST (15-37) IU/L ALT (14-63) IU/L Alkaline Phosphatase (46-116) U/L Ammonia (19-54) ug/dL Total Protein (6.4-8.2) g/dL Albumin (3.4-5.0) g/dL Globulin (2.6-4.0) g/dL Albumin/Globulin Ratio (0.9-1.6) Fluid Source Periton Periton Periton Fluid Specific Grav 1.011 Fluid Tot Bilirubin 1.0 mg/dL Fluid Lipase 54 u/L Vancomycin Trough (5.0-10.0) ug/mL 12/09/20 12/10/20 12/10/20 Range/Units 17:49 05:03 05:03 WBC 6.01 (4.0-11.0) K/uL RBC 2.89 L (4.30-5.90) M/uL Hgb 9.9 L (12.0-16.0) g/dL Hct 28.5 L (36.0-46.0) % MCV 98.6 H (80.0-98.0) fL MCH 34.3 H (27.0-32.0) pg MCHC 34.7 (31.0-37.0) g/dL RDW Std Deviation 51.5 (28.0-62.0) fl RDW Coeff of Haley 14 (11.0-15.0) % Plt Count 55 L (150-400) K/uL MPV 11.20 (7.40-12.00) fL Neut % (Auto) 74.6 (48.0-80.0) % Lymph % (Auto) 14.5 L (16.0-40.0) % [place] % (Auto) 10.6 (0.0-15.0) % Eos % (Auto) 0.0 (0.0-7.0) % Baso % (Auto) 0.3 (0.0-1.5) % Neut # (Auto) 4.5 (1.4-5.7) K/uL Lymph # (Auto) 0.9 (0.6-2.4) K/uL [place] # (Auto) 0.6 (0.0-0.8) K/uL Eos # (Auto) 0.0 (0.0-0.7) K/uL Baso # (Auto) 0.0 (0.0-0.1) K/uL Nucleated RBC % 0.0 /100WBC Nucleated RBCs # 0 K/uL INR Sodium 136 (136-145) mmol/L Potassium 2.3 L* (3.5-5.1) mmol/L Chloride 98 (98-107) mmol/L Carbon Dioxide 25.9 (21.0-32.0) mmol/L BUN 11 (7.0-18.0) mg/dL Creatinine 0.8 (0.6-1.0) mg/dL Est Cr Clr Drug Dosing 78.27 mL/min Estimated GFR (MDRD) > 60.0 ml/min Glucose 143 H (74-106) mg/dL POC Glucose 140 H (70-99) mg/dL Calcium 7.7 L (8.5-10.1) mg/dL Phosphorus 1.9 L (2.6-4.7) mg/dL Magnesium 1.6 L (1.8-2.4) mg/dL Total Bilirubin 6.8 H (0.2-1.0) mg/dL AST 44 H (15-37) IU/L ALT 19 (14-63) IU/L Alkaline Phosphatase 54 (46-116) U/L Ammonia (19-54) ug/dL Total Protein 6.3 L (6.4-8.2) g/dL Albumin 2.5 L (3.4-5.0) g/dL Globulin 3.8 (2.6-4.0) g/dL Albumin/Globulin Ratio 0.7 L (0.9-1.6) Fluid Source Fluid Specific Grav Fluid Tot Bilirubin mg/dL Fluid Lipase u/L Vancomycin Trough (5.0-10.0) ug/mL 12/10/20 12/10/20 12/10/20 Range/Units 06:43 10:00 12:02 WBC (4.0-11.0) K/uL RBC (4.30-5.90) M/uL Hgb (12.0-16.0) g/dL Hct (36.0-46.0) % MCV (80.0-98.0) fL MCH (27.0-32.0) pg MCHC (31.0-37.0) g/dL RDW Std Deviation (28.0-62.0) fl RDW Coeff of Haley (11.0-15.0) % Plt Count (150-400) K/uL MPV (7.40-12.00) fL Neut % (Auto) (48.0-80.0) % Lymph % (Auto) (16.0-40.0) % [place] % (Auto) (0.0-15.0) % Eos % (Auto) (0.0-7.0) % Baso % (Auto) (0.0-1.5) % Neut # (Auto) (1.4-5.7) K/uL Lymph # (Auto) (0.6-2.4) K/uL [place] # (Auto) (0.0-0.8) K/uL Eos # (Auto) (0.0-0.7) K/uL Baso # (Auto) (0.0-0.1) K/uL Nucleated RBC % /100WBC Nucleated RBCs # K/uL INR 1.65 Sodium (136-145) mmol/L Potassium (3.5-5.1) mmol/L Chloride (98-107) mmol/L Carbon Dioxide (21.0-32.0) mmol/L BUN (7.0-18.0) mg/dL Creatinine (0.6-1.0) mg/dL Est Cr Clr Drug Dosing mL/min Estimated GFR (MDRD) ml/min Glucose (74-106) mg/dL POC Glucose (70-99) mg/dL Calcium (8.5-10.1) mg/dL Phosphorus (2.6-4.7) mg/dL Magnesium (1.8-2.4) mg/dL Total Bilirubin (0.2-1.0) mg/dL AST (15-37) IU/L ALT (14-63) IU/L Alkaline Phosphatase (46-116) U/L Ammonia 89 H (19-54) ug/dL Total Protein (6.4-8.2) g/dL Albumin (3.4-5.0) g/dL Globulin (2.6-4.0) g/dL Albumin/Globulin Ratio (0.9-1.6) Fluid Source Fluid Specific Grav Fluid Tot Bilirubin mg/dL Fluid Lipase u/L Vancomycin Trough 5.0 (5.0-10.0) ug/mL Jignesh Results Last 24 Hours: Microbiology 12/09/20 02:40 Gram Stain - Final Peritoneal Fluid Med Orders - Current: Current Medications Albuterol/Ipratropium (Albuterol/Ipratropium 3.0-0.5 Mg/3 Ml Neb Soln) 3 ml NEB Q4HRRT PRN PRN Reason: Shortness Of Breath/wheezing Piperacillin Sod/Tazobactam (Sod 3.375 gm/ Sodium Chloride) 50 mls @ 100 mls/hr IV Q8H [facility] Last Admin: 12/10/20 08:38 Dose: 100 mls/hr Documented by: Pantoprazole Sodium 40 mg/ (Sodium Chloride) 10 mls @ 300 mls/hr IV Q12HR [facility] Last Admin: 12/10/20 08:01 Dose: 300 mls/hr Documented by: Vancomycin HCl 1 gm/ Sodium (Chloride) 250 mls @ 250 mls/hr IV Q8H [facility] Last Admin: 12/10/20 10:24 Dose: 250 mls/hr Documented by: Lactulose (Lactulose Soln 10 Gm/15 Ml 15 Ml Ud Cup) 10 gm PO TID BRANDO Ondansetron HCl (Ondansetron 4 Mg/2 Ml Sdv) 4 mg IVPUSH Q4H PRN PRN Reason: Nausea/Vomiting Sodium Chloride (Sodium Chloride 0.9% 10 Ml Syringe) 10 ml FLUSH ASDIRECTED PRN PRN Reason: Keep Vein Open Sodium Chloride (Sodium Chloride 0.9% 2.5 Ml Syringe) 2.5 ml FLUSH ASDIRECTED PRN PRN Reason: Keep Vein Open Vancomycin HCl (Pharmacy To Dose - Vancomycin) 1 dose .XX ASDIRECTED BRANDO Discontinued Medications Folic Acid (Folic Acid 50 Mg/10 Ml Mdv) 1 mg IV STAT STA Stop: 12/08/20 22:44 Last Admin: 12/08/20 23:24 Dose: 1 mg Documented by: Thiamine HCl 100 mg/ Sodium (Chloride) 101 mls @ 202 mls/hr IV ONETIME ONE Stop: 12/08/20 22:44 Last Admin: 12/08/20 23:23 Dose: Not Given Documented by: Albumin Human (Flexbumin 25%) 50 mls @ 50 mls/hr IV ONETIME ONE Stop: 12/09/20 05:29 Last Admin: 12/09/20 04:54 Dose: 50 mls/hr Documented by: Albumin Human (Flexbumin 25%) 50 mls @ 50 mls/hr IV ONETIME ONE Stop: 12/09/20 07:44 Last Admin: 12/09/20 06:44 Dose: 50 mls/hr Documented by: Magnesium Sulfate 4 gm/ Premix 100 mls @ 50 mls/hr IV ONETIME ONE Stop: 12/10/20 08:32 Last Admin: 12/10/20 06:49 Dose: 50 mls/hr Documented by: Potassium Chloride 30 meq/ (Sodium Chloride) 265 mls @ 88.333 mls/hr IV ONETIME ONE Stop: 12/10/20 10:44 Last Admin: 12/10/20 07:58 Dose: 88.333 mls/hr Documented by: Potassium Chloride 30 meq/ (Sodium Chloride) 265 mls @ 88.333 mls/hr IV ONETIME ONE Stop: 12/10/20 13:44 Last Admin: 12/10/20 11:57 Dose: 88.333 mls/hr Documented by: Iopamidol (Iopamidol 755 Mg/Ml 100 Ml Bottle) 100 ml IVPUSH ONETIME ONE Stop: 12/09/20 04:16 Last Admin: 12/09/20 10:17 Dose: Not Given Documented by: Lactulose (Lactulose Soln 10 Gm/15 Ml 15 Ml Ud Cup) 20 gm PO ONETIME ONE Stop: 12/09/20 00:54 Last Admin: 12/09/20 01:02 Dose: 20 gm Documented by: Lactulose (Lactulose Soln 10 Gm/15 Ml 15 Ml Ud Cup) 10 gm PO ONETIME ONE Stop: 12/09/20 05:44 Last Admin: 12/09/20 05:59 Dose: 10 gm Documented by: Lactulose (Lactulose Soln 10 Gm/15 Ml 15 Ml Ud Cup) 10 gm PO BID BRANDO Last Admin: 12/10/20 08:41 Dose: 10 gm Documented by: Lidocaine HCl (Lidocaine 1% 5 Ml Sdv) 10 ml INJECT ONETIME ONE Stop: 12/09/20 01:02 Last Admin: 12/09/20 02:49 Dose: Not Given Documented by: Sodium Phosphate (Phosphorus #1 250 Mg Tab) 500 mg PO ONETIME ONE Stop: 12/10/20 06:34 Last Admin: 12/10/20 06:48 Dose: 500 mg Documented by: Thiamine HCl (Thiamine 200 Mg/2 Ml Mdv) Confirm Administered Dose 200 mg .ROUTE .STK-MED ONE Stop: 12/08/20 23:17 Last Admin: 12/08/20 23:23 Dose: Not Given Documented by: Thiamine HCl (Thiamine 200 Mg/2 Ml Mdv) 200 mg IVPUSH ONETIME ONE Stop: 12/08/20 23:20 Last Admin: 12/08/20 23:24 Dose: 200 mg Documented by: - Exam General: No Acute Distress, Lethargic. No: Alert, Oriented HEENT: Scleral Icterus Neck: Supple. No: JVD Lungs: Decreased Breath Sounds Cardiovascular: Regular Rate, Regular Rhythm GI/Abdominal Exam: Distended, Other (Caput medusa. Telangiectasias.) Extremities: Pedal Edema Peripheral Pulses: 2+: Dorsalis Pedis (L), Dorsalis Pedis (R) Skin: Other Psy/Mental Status: No: Alert, Agitated - Patient Data Lab Results Last 24 hrs: Laboratory Results - last 24 hr 12/09/20 12/09/20 12/09/20 Range/Units 02:40 02:40 02:40 WBC (4.0-11.0) K/uL RBC (4.30-5.90) M/uL Hgb (12.0-16.0) g/dL Hct (36.0-46.0) % MCV (80.0-98.0) fL MCH (27.0-32.0) pg MCHC (31.0-37.0) g/dL RDW Std Deviation (28.0-62.0) fl RDW Coeff of Haley (11.0-15.0) % Plt Count (150-400) K/uL MPV (7.40-12.00) fL Neut % (Auto) (48.0-80.0) % Lymph % (Auto) (16.0-40.0) % [place] % (Auto) (0.0-15.0) % Eos % (Auto) (0.0-7.0) % Baso % (Auto) (0.0-1.5) % Neut # (Auto) (1.4-5.7) K/uL Lymph # (Auto) (0.6-2.4) K/uL [place] # (Auto) (0.0-0.8) K/uL Eos # (Auto) (0.0-0.7) K/uL Baso # (Auto) (0.0-0.1) K/uL Nucleated RBC % /100WBC Nucleated RBCs # K/uL INR Sodium (136-145) mmol/L Potassium (3.5-5.1) mmol/L Chloride (98-107) mmol/L Carbon Dioxide (21.0-32.0) mmol/L BUN (7.0-18.0) mg/dL Creatinine (0.6-1.0) mg/dL Est Cr Clr Drug Dosing mL/min Estimated GFR (MDRD) ml/min Glucose (74-106) mg/dL POC Glucose (70-99) mg/dL Calcium (8.5-10.1) mg/dL Phosphorus (2.6-4.7) mg/dL Magnesium (1.8-2.4) mg/dL Total Bilirubin (0.2-1.0) mg/dL AST (15-37) IU/L ALT (14-63) IU/L Alkaline Phosphatase (46-116) U/L Ammonia (19-54) ug/dL Total Protein (6.4-8.2) g/dL Albumin (3.4-5.0) g/dL Globulin (2.6-4.0) g/dL Albumin/Globulin Ratio (0.9-1.6) Fluid Source Periton Periton Periton Fluid Specific Grav 1.011 Fluid Tot Bilirubin 1.0 mg/dL Fluid Lipase 54 u/L Vancomycin Trough (5.0-10.0) ug/mL 12/09/20 12/10/20 12/10/20 Range/Units 17:49 05:03 05:03 WBC 6.01 (4.0-11.0) K/uL RBC 2.89 L (4.30-5.90) M/uL Hgb 9.9 L (12.0-16.0) g/dL Hct 28.5 L (36.0-46.0) % MCV 98.6 H (80.0-98.0) fL MCH 34.3 H (27.0-32.0) pg MCHC 34.7 (31.0-37.0) g/dL RDW Std Deviation 51.5 (28.0-62.0) fl RDW Coeff of Haley 14 (11.0-15.0) % Plt Count 55 L (150-400) K/uL MPV 11.20 (7.40-12.00) fL Neut % (Auto) 74.6 (48.0-80.0) % Lymph % (Auto) 14.5 L (16.0-40.0) % [place] % (Auto) 10.6 (0.0-15.0) % Eos % (Auto) 0.0 (0.0-7.0) % Baso % (Auto) 0.3 (0.0-1.5) % Neut # (Auto) 4.5 (1.4-5.7) K/uL Lymph # (Auto) 0.9 (0.6-2.4) K/uL [place] # (Auto) 0.6 (0.0-0.8) K/uL Eos # (Auto) 0.0 (0.0-0.7) K/uL Baso # (Auto) 0.0 (0.0-0.1) K/uL Nucleated RBC % 0.0 /100WBC Nucleated RBCs # 0 K/uL INR Sodium 136 (136-145) mmol/L Potassium 2.3 L* (3.5-5.1) mmol/L Chloride 98 (98-107) mmol/L Carbon Dioxide 25.9 (21.0-32.0) mmol/L BUN 11 (7.0-18.0) mg/dL Creatinine 0.8 (0.6-1.0) mg/dL Est Cr Clr Drug Dosing 78.27 mL/min Estimated GFR (MDRD) > 60.0 ml/min Glucose 143 H (74-106) mg/dL POC Glucose 140 H (70-99) mg/dL Calcium 7.7 L (8.5-10.1) mg/dL Phosphorus 1.9 L (2.6-4.7) mg/dL Magnesium 1.6 L (1.8-2.4) mg/dL Total Bilirubin 6.8 H (0.2-1.0) mg/dL AST 44 H (15-37) IU/L ALT 19 (14-63) IU/L Alkaline Phosphatase 54 (46-116) U/L Ammonia (19-54) ug/dL Total Protein 6.3 L (6.4-8.2) g/dL Albumin 2.5 L (3.4-5.0) g/dL Globulin 3.8 (2.6-4.0) g/dL Albumin/Globulin Ratio 0.7 L (0.9-1.6) Fluid Source Fluid Specific Grav Fluid Tot Bilirubin mg/dL Fluid Lipase u/L Vancomycin Trough (5.0-10.0) ug/mL 12/10/20 12/10/20 12/10/20 Range/Units 06:43 10:00 12:02 WBC (4.0-11.0) K/uL RBC (4.30-5.90) M/uL Hgb (12.0-16.0) g/dL Hct (36.0-46.0) % MCV (80.0-98.0) fL MCH (27.0-32.0) pg MCHC (31.0-37.0) g/dL RDW Std Deviation (28.0-62.0) fl RDW Coeff of Haley (11.0-15.0) % Plt Count (150-400) K/uL MPV (7.40-12.00) fL Neut % (Auto) (48.0-80.0) % Lymph % (Auto) (16.0-40.0) % [place] % (Auto) (0.0-15.0) % Eos % (Auto) (0.0-7.0) % Baso % (Auto) (0.0-1.5) % Neut # (Auto) (1.4-5.7) K/uL Lymph # (Auto) (0.6-2.4) K/uL [place] # (Auto) (0.0-0.8) K/uL Eos # (Auto) (0.0-0.7) K/uL Baso # (Auto) (0.0-0.1) K/uL Nucleated RBC % /100WBC Nucleated RBCs # K/uL INR 1.65 Sodium (136-145) mmol/L Potassium (3.5-5.1) mmol/L Chloride (98-107) mmol/L Carbon Dioxide (21.0-32.0) mmol/L BUN (7.0-18.0) mg/dL Creatinine (0.6-1.0) mg/dL Est Cr Clr Drug Dosing mL/min Estimated GFR (MDRD) ml/min Glucose (74-106) mg/dL POC Glucose (70-99) mg/dL Calcium (8.5-10.1) mg/dL Phosphorus (2.6-4.7) mg/dL Magnesium (1.8-2.4) mg/dL Total Bilirubin (0.2-1.0) mg/dL AST (15-37) IU/L ALT (14-63) IU/L Alkaline Phosphatase (46-116) U/L Ammonia 89 H (19-54) ug/dL Total Protein (6.4-8.2) g/dL Albumin (3.4-5.0) g/dL Globulin (2.6-4.0) g/dL Albumin/Globulin Ratio (0.9-1.6) Fluid Source Fluid Specific Grav Fluid Tot Bilirubin mg/dL Fluid Lipase u/L Vancomycin Trough 5.0 (5.0-10.0) ug/mL Result Diagrams: 12/10/20 05:03 12/10/20 05:03 Jignesh Results Last 24 hrs: Microbiology 12/09/20 02:40 Gram Stain - Final Peritoneal Fluid Sepsis Event Note - Evaluation Sepsis Screening Result: No Definite Risk - Focused Exam Vital Signs: Vital Signs Temp Pulse Resp BP Pulse Ox 12/10/20 08:00 98.5 F 70 16 162/74 H 98 12/10/20 05:00 96.6 F L 69 15 148/67 H 99 - Problem List & Annotations (1) Ascites SNOMED Code(s): 541744667 Code(s): R18.8 - OTHER ASCITES Status: Acute Priority: High Current Visit: Yes Qualifiers: Ascites type: other type Qualified Code(s): R18.8 - Other ascites (2) Hepatic encephalopathy SNOMED Code(s): 90956160 Code(s): K72.90 - HEPATIC FAILURE, UNSPECIFIED WITHOUT COMA Status: Acute Priority: High Current Visit: Yes (3) Liver failure SNOMED Code(s): 28075487 Code(s): K72.90 - HEPATIC FAILURE, UNSPECIFIED WITHOUT COMA Status: Acute Priority: High Current Visit: Yes Qualifiers: Hepatic coma status: without hepatic coma (4) Pleural effusion, left SNOMED Code(s): 09758371 Code(s): J90 - PLEURAL EFFUSION, NOT ELSEWHERE CLASSIFIED Status: Acute Priority: High Current Visit: Yes (5) Hypokalemia SNOMED Code(s): 22077920 Code(s): E87.6 - HYPOKALEMIA Status: Acute Current Visit: No - Problem List Review Problem List Initiated/Reviewed/Updated: Yes - Plan Plan:: 59-year-old female admitted for hepatic encephalopathy , patient has liver cirrhosis on imaging likely secondary to previous history of alcohol abuse -Status post paracentesis 9L fluids were obtained. -Patient received some IV infusion of albumin for fluid resuscitation -Lactulose bid. Added Rifaximin 550mg bid for elevated ammonia. -Replete electrolytes including potassium, magnesium and phosphorus. -DuoNeb. Zofran. Protonix. -Attempted to contact [place] [facility] for recommendations, was unable to get a hold of the physician via [employer]. -Patient has been typed and screened. Transfuse platelets as needed. Continue to monitor closely <Julissa Fleming - Last Filed: 12/10/20 16:56> - General Info Subjective Update: I have seen and evaluated the patient and agree with the residents note unless specified in my note. Ammonia is trending up, bilirubin is also slightly elevated than yesterday, although patient's mentation is slightly better she continues to be altered. Patient's meld score is at least 22, reviewing the charts from [facility] it appears that patient also has a right lung mass which might preclude her from pursuing lung transplant. Patient overall has a poor prognosis, spoke to patient's at bedside and updated him. We will try to get in touch with GI at my not for further recommendations, overall the prognosis is grim. - Patient Data Vitals - Most Recent: Last Vital Signs Temp 36.5 C 12/10/20 12:00 Pulse 69 12/10/20 12:00 Resp 16 12/10/20 12:00 BP 134/69 12/10/20 12:00 Pulse Ox 99 12/10/20 12:00 I&O - Last 24 Hours: Intake & Output 12/10/20 12/10/20 12/10/20 06:59 14:59 22:59 Intake Total 0 Output Total 0 Balance 0 Lab Results Last 24 Hours: Laboratory Results - last 24 hr 12/09/20 12/09/20 12/09/20 Range/Units 02:40 02:40 02:40 WBC (4.0-11.0) K/uL RBC (4.30-5.90) M/uL Hgb (12.0-16.0) g/dL Hct (36.0-46.0) % MCV (80.0-98.0) fL MCH (27.0-32.0) pg MCHC (31.0-37.0) g/dL RDW Std Deviation (28.0-62.0) fl RDW Coeff of Haley (11.0-15.0) % Plt Count (150-400) K/uL MPV (7.40-12.00) fL Neut % (Auto) (48.0-80.0) % Lymph % (Auto) (16.0-40.0) % [place] % (Auto) (0.0-15.0) % Eos % (Auto) (0.0-7.0) % Baso % (Auto) (0.0-1.5) % Neut # (Auto) (1.4-5.7) K/uL Lymph # (Auto) (0.6-2.4) K/uL [place] # (Auto) (0.0-0.8) K/uL Eos # (Auto) (0.0-0.7) K/uL Baso # (Auto) (0.0-0.1) K/uL Nucleated RBC % /100WBC Nucleated RBCs # K/uL INR Sodium (136-145) mmol/L Potassium (3.5-5.1) mmol/L Chloride (98-107) mmol/L Carbon Dioxide (21.0-32.0) mmol/L BUN (7.0-18.0) mg/dL Creatinine (0.6-1.0) mg/dL Est Cr Clr Drug Dosing mL/min Estimated GFR (MDRD) ml/min Glucose (74-106) mg/dL POC Glucose (70-99) mg/dL Calcium (8.5-10.1) mg/dL Phosphorus (2.6-4.7) mg/dL Magnesium (1.8-2.4) mg/dL Total Bilirubin (0.2-1.0) mg/dL AST (15-37) IU/L ALT (14-63) IU/L Alkaline Phosphatase (46-116) U/L Ammonia (19-54) ug/dL Total Protein (6.4-8.2) g/dL Albumin (3.4-5.0) g/dL Globulin (2.6-4.0) g/dL Albumin/Globulin Ratio (0.9-1.6) Fluid Source Periton Periton Periton Fluid Specific Grav 1.011 Fluid Tot Bilirubin 1.0 mg/dL Fluid Lipase 54 u/L Vancomycin Trough (5.0-10.0) ug/mL 12/09/20 12/10/20 12/10/20 Range/Units 17:49 05:03 05:03 WBC 6.01 (4.0-11.0) K/uL RBC 2.89 L (4.30-5.90) M/uL Hgb 9.9 L (12.0-16.0) g/dL Hct 28.5 L (36.0-46.0) % MCV 98.6 H (80.0-98.0) fL MCH 34.3 H (27.0-32.0) pg MCHC 34.7 (31.0-37.0) g/dL RDW Std Deviation 51.5 (28.0-62.0) fl RDW Coeff of Haley 14 (11.0-15.0) % Plt Count 55 L (150-400) K/uL MPV 11.20 (7.40-12.00) fL Neut % (Auto) 74.6 (48.0-80.0) % Lymph % (Auto) 14.5 L (16.0-40.0) % [place] % (Auto) 10.6 (0.0-15.0) % Eos % (Auto) 0.0 (0.0-7.0) % Baso % (Auto) 0.3 (0.0-1.5) % Neut # (Auto) 4.5 (1.4-5.7) K/uL Lymph # (Auto) 0.9 (0.6-2.4) K/uL [place] # (Auto) 0.6 (0.0-0.8) K/uL Eos # (Auto) 0.0 (0.0-0.7) K/uL Baso # (Auto) 0.0 (0.0-0.1) K/uL Nucleated RBC % 0.0 /100WBC Nucleated RBCs # 0 K/uL INR Sodium 136 (136-145) mmol/L Potassium 2.3 L* (3.5-5.1) mmol/L Chloride 98 (98-107) mmol/L Carbon Dioxide 25.9 (21.0-32.0) mmol/L BUN 11 (7.0-18.0) mg/dL Creatinine 0.8 (0.6-1.0) mg/dL Est Cr Clr Drug Dosing 78.27 mL/min Estimated GFR (MDRD) > 60.0 ml/min Glucose 143 H (74-106) mg/dL POC Glucose 140 H (70-99) mg/dL Calcium 7.7 L (8.5-10.1) mg/dL Phosphorus 1.9 L (2.6-4.7) mg/dL Magnesium 1.6 L (1.8-2.4) mg/dL Total Bilirubin 6.8 H (0.2-1.0) mg/dL AST 44 H (15-37) IU/L ALT 19 (14-63) IU/L Alkaline Phosphatase 54 (46-116) U/L Ammonia (19-54) ug/dL Total Protein 6.3 L (6.4-8.2) g/dL Albumin 2.5 L (3.4-5.0) g/dL Globulin 3.8 (2.6-4.0) g/dL Albumin/Globulin Ratio 0.7 L (0.9-1.6) Fluid Source Fluid Specific Grav Fluid Tot Bilirubin mg/dL Fluid Lipase u/L Vancomycin Trough (5.0-10.0) ug/mL 12/10/20 12/10/20 12/10/20 Range/Units 06:43 10:00 12:02 WBC (4.0-11.0) K/uL RBC (4.30-5.90) M/uL Hgb (12.0-16.0) g/dL Hct (36.0-46.0) % MCV (80.0-98.0) fL MCH (27.0-32.0) pg MCHC (31.0-37.0) g/dL RDW Std Deviation (28.0-62.0) fl RDW Coeff of Haley (11.0-15.0) % Plt Count (150-400) K/uL MPV (7.40-12.00) fL Neut % (Auto) (48.0-80.0) % Lymph % (Auto) (16.0-40.0) % [place] % (Auto) (0.0-15.0) % Eos % (Auto) (0.0-7.0) % Baso % (Auto) (0.0-1.5) % Neut # (Auto) (1.4-5.7) K/uL Lymph # (Auto) (0.6-2.4) K/uL [place] # (Auto) (0.0-0.8) K/uL Eos # (Auto) (0.0-0.7) K/uL Baso # (Auto) (0.0-0.1) K/uL Nucleated RBC % /100WBC Nucleated RBCs # K/uL INR 1.65 Sodium (136-145) mmol/L Potassium (3.5-5.1) mmol/L Chloride (98-107) mmol/L Carbon Dioxide (21.0-32.0) mmol/L BUN (7.0-18.0) mg/dL Creatinine (0.6-1.0) mg/dL Est Cr Clr Drug Dosing mL/min Estimated GFR (MDRD) ml/min Glucose (74-106) mg/dL POC Glucose (70-99) mg/dL Calcium (8.5-10.1) mg/dL Phosphorus (2.6-4.7) mg/dL Magnesium (1.8-2.4) mg/dL Total Bilirubin (0.2-1.0) mg/dL AST (15-37) IU/L ALT (14-63) IU/L Alkaline Phosphatase (46-116) U/L Ammonia 89 H (19-54) ug/dL Total Protein (6.4-8.2) g/dL Albumin (3.4-5.0) g/dL Globulin (2.6-4.0) g/dL Albumin/Globulin Ratio (0.9-1.6) Fluid Source Fluid Specific Grav Fluid Tot Bilirubin mg/dL Fluid Lipase u/L Vancomycin Trough 5.0 (5.0-10.0) ug/mL Jignesh Results Last 24 Hours: Microbiology 12/09/20 02:40 Gram Stain - Final Peritoneal Fluid Med Orders - Current: Current Medications Albuterol/Ipratropium (Albuterol/Ipratropium 3.0-0.5 Mg/3 Ml Neb Soln) 3 ml NEB Q4HRRT PRN PRN Reason: Shortness Of Breath/wheezing Piperacillin Sod/Tazobactam (Sod 3.375 gm/ Sodium Chloride) 50 mls @ 100 mls/hr IV Q8H [facility] Last Admin: 12/10/20 08:38 Dose: 100 mls/hr Documented by: Pantoprazole Sodium 40 mg/ (Sodium Chloride) 10 mls @ 300 mls/hr IV Q12HR [facility] Last Admin: 12/10/20 08:01 Dose: 300 mls/hr Documented by: Vancomycin HCl 1 gm/ Sodium (Chloride) 250 mls @ 250 mls/hr IV Q8H [facility] Last Admin: 12/10/20 10:24 Dose: 250 mls/hr Documented by: Potassium Chloride 40 meq/ (Sodium Chloride) 270 mls @ 68 mls/hr IV ONETIME ONE Stop: 12/10/20 20:28 Lactulose (Lactulose Soln 10 Gm/15 Ml 15 Ml Ud Cup) 10 gm PO TID [facility] Ondansetron HCl (Ondansetron 4 Mg/2 Ml Sdv) 4 mg IVPUSH Q4H PRN PRN Reason: Nausea/Vomiting Rifaximin (Rifaximin 550 Mg Tab) 550 mg PO BID [facility] Sodium Chloride (Sodium Chloride 0.9% 10 Ml Syringe) 10 ml FLUSH ASDIRECTED PRN PRN Reason: Keep Vein Open Sodium Chloride (Sodium Chloride 0.9% 2.5 Ml Syringe) 2.5 ml FLUSH ASDIRECTED PRN PRN Reason: Keep Vein Open Vancomycin HCl (Pharmacy To Dose - Vancomycin) 1 dose .XX ASDIRECTED [facility] Discontinued Medications Folic Acid (Folic Acid 50 Mg/10 Ml Mdv) 1 mg IV STAT STA Stop: 12/08/20 22:44 Last Admin: 12/08/20 23:24 Dose: 1 mg Documented by: Thiamine HCl 100 mg/ Sodium (Chloride) 101 mls @ 202 mls/hr IV ONETIME ONE Stop: 12/08/20 22:44 Last Admin: 12/08/20 23:23 Dose: Not Given Documented by: Albumin Human (Flexbumin 25%) 50 mls @ 50 mls/hr IV ONETIME ONE Stop: 12/09/20 05:29 Last Admin: 12/09/20 04:54 Dose: 50 mls/hr Documented by: Albumin Human (Flexbumin 25%) 50 mls @ 50 mls/hr IV ONETIME ONE Stop: 12/09/20 07:44 Last Admin: 12/09/20 06:44 Dose: 50 mls/hr Documented by: Magnesium Sulfate 4 gm/ Premix 100 mls @ 50 mls/hr IV ONETIME ONE Stop: 12/10/20 08:32 Last Admin: 12/10/20 06:49 Dose: 50 mls/hr Documented by: Potassium Chloride 30 meq/ (Sodium Chloride) 265 mls @ 88.333 mls/hr IV ONETIME ONE Stop: 12/10/20 10:44 Last Admin: 12/10/20 07:58 Dose: 88.333 mls/hr Documented by: Potassium Chloride 30 meq/ (Sodium Chloride) 265 mls @ 88.333 mls/hr IV ONETIME ONE Stop: 12/10/20 13:44 Last Admin: 12/10/20 11:57 Dose: 88.333 mls/hr Documented by: Iopamidol (Iopamidol 755 Mg/Ml 100 Ml Bottle) 100 ml IVPUSH ONETIME ONE Stop: 12/09/20 04:16 Last Admin: 12/09/20 10:17 Dose: Not Given Documented by: Lactulose (Lactulose Soln 10 Gm/15 Ml 15 Ml Ud Cup) 20 gm PO ONETIME ONE Stop: 12/09/20 00:54 Last Admin: 12/09/20 01:02 Dose: 20 gm Documented by: Lactulose (Lactulose Soln 10 Gm/15 Ml 15 Ml Ud Cup) 10 gm PO ONETIME ONE Stop: 12/09/20 05:44 Last Admin: 12/09/20 05:59 Dose: 10 gm Documented by: Lactulose (Lactulose Soln 10 Gm/15 Ml 15 Ml Ud Cup) 10 gm PO BID [facility] Last Admin: 12/10/20 08:41 Dose: 10 gm Documented by: Lidocaine HCl (Lidocaine 1% 5 Ml Sdv) 10 ml INJECT ONETIME ONE Stop: 12/09/20 01:02 Last Admin: 12/09/20 02:49 Dose: Not Given Documented by: Sodium Phosphate (Phosphorus #1 250 Mg Tab) 500 mg PO ONETIME ONE Stop: 12/10/20 06:34 Last Admin: 12/10/20 06:48 Dose: 500 mg Documented by: Thiamine HCl (Thiamine 200 Mg/2 Ml Mdv) Confirm Administered Dose 200 mg .ROUTE .STK-MED ONE Stop: 12/08/20 23:17 Last Admin: 12/08/20 23:23 Dose: Not Given Documented by: Thiamine HCl (Thiamine 200 Mg/2 Ml Mdv) 200 mg IVPUSH ONETIME ONE Stop: 12/08/20 23:20 Last Admin: 12/08/20 23:24 Dose: 200 mg Documented by: - Patient Data Lab Results Last 24 hrs: Laboratory Results - last 24 hr 12/09/20 12/09/20 12/09/20 Range/Units 02:40 02:40 02:40 WBC (4.0-11.0) K/uL RBC (4.30-5.90) M/uL Hgb (12.0-16.0) g/dL Hct (36.0-46.0) % MCV (80.0-98.0) fL MCH (27.0-32.0) pg MCHC (31.0-37.0) g/dL RDW Std Deviation (28.0-62.0) fl RDW Coeff of Haley (11.0-15.0) % Plt Count (150-400) K/uL MPV (7.40-12.00) fL Neut % (Auto) (48.0-80.0) % Lymph % (Auto) (16.0-40.0) % [place] % (Auto) (0.0-15.0) % Eos % (Auto) (0.0-7.0) % Baso % (Auto) (0.0-1.5) % Neut # (Auto) (1.4-5.7) K/uL Lymph # (Auto) (0.6-2.4) K/uL [place] # (Auto) (0.0-0.8) K/uL Eos # (Auto) (0.0-0.7) K/uL Baso # (Auto) (0.0-0.1) K/uL Nucleated RBC % /100WBC Nucleated RBCs # K/uL INR Sodium (136-145) mmol/L Potassium (3.5-5.1) mmol/L Chloride (98-107) mmol/L Carbon Dioxide (21.0-32.0) mmol/L BUN (7.0-18.0) mg/dL Creatinine (0.6-1.0) mg/dL Est Cr Clr Drug Dosing mL/min Estimated GFR (MDRD) ml/min Glucose (74-106) mg/dL POC Glucose (70-99) mg/dL Calcium (8.5-10.1) mg/dL Phosphorus (2.6-4.7) mg/dL Magnesium (1.8-2.4) mg/dL Total Bilirubin (0.2-1.0) mg/dL AST (15-37) IU/L ALT (14-63) IU/L Alkaline Phosphatase (46-116) U/L Ammonia (19-54) ug/dL Total Protein (6.4-8.2) g/dL Albumin (3.4-5.0) g/dL Globulin (2.6-4.0) g/dL Albumin/Globulin Ratio (0.9-1.6) Fluid Source Periton Periton Periton Fluid Specific Grav 1.011 Fluid Tot Bilirubin 1.0 mg/dL Fluid Lipase 54 u/L Vancomycin Trough (5.0-10.0) ug/mL 12/09/20 12/10/20 12/10/20 Range/Units 17:49 05:03 05:03 WBC 6.01 (4.0-11.0) K/uL RBC 2.89 L (4.30-5.90) M/uL Hgb 9.9 L (12.0-16.0) g/dL Hct 28.5 L (36.0-46.0) % MCV 98.6 H (80.0-98.0) fL MCH 34.3 H (27.0-32.0) pg MCHC 34.7 (31.0-37.0) g/dL RDW Std Deviation 51.5 (28.0-62.0) fl RDW Coeff of Haley 14 (11.0-15.0) % Plt Count 55 L (150-400) K/uL MPV 11.20 (7.40-12.00) fL Neut % (Auto) 74.6 (48.0-80.0) % Lymph % (Auto) 14.5 L (16.0-40.0) % [place] % (Auto) 10.6 (0.0-15.0) % Eos % (Auto) 0.0 (0.0-7.0) % Baso % (Auto) 0.3 (0.0-1.5) % Neut # (Auto) 4.5 (1.4-5.7) K/uL Lymph # (Auto) 0.9 (0.6-2.4) K/uL [place] # (Auto) 0.6 (0.0-0.8) K/uL Eos # (Auto) 0.0 (0.0-0.7) K/uL Baso # (Auto) 0.0 (0.0-0.1) K/uL Nucleated RBC % 0.0 /100WBC Nucleated RBCs # 0 K/uL INR Sodium 136 (136-145) mmol/L Potassium 2.3 L* (3.5-5.1) mmol/L Chloride 98 (98-107) mmol/L Carbon Dioxide 25.9 (21.0-32.0) mmol/L BUN 11 (7.0-18.0) mg/dL Creatinine 0.8 (0.6-1.0) mg/dL Est Cr Clr Drug Dosing 78.27 mL/min Estimated GFR (MDRD) > 60.0 ml/min Glucose 143 H (74-106) mg/dL POC Glucose 140 H (70-99) mg/dL Calcium 7.7 L (8.5-10.1) mg/dL Phosphorus 1.9 L (2.6-4.7) mg/dL Magnesium 1.6 L (1.8-2.4) mg/dL Total Bilirubin 6.8 H (0.2-1.0) mg/dL AST 44 H (15-37) IU/L ALT 19 (14-63) IU/L Alkaline Phosphatase 54 (46-116) U/L Ammonia (19-54) ug/dL Total Protein 6.3 L (6.4-8.2) g/dL Albumin 2.5 L (3.4-5.0) g/dL Globulin 3.8 (2.6-4.0) g/dL Albumin/Globulin Ratio 0.7 L (0.9-1.6) Fluid Source Fluid Specific Grav Fluid Tot Bilirubin mg/dL Fluid Lipase u/L Vancomycin Trough (5.0-10.0) ug/mL 12/10/20 12/10/20 12/10/20 Range/Units 06:43 10:00 12:02 WBC (4.0-11.0) K/uL RBC (4.30-5.90) M/uL Hgb (12.0-16.0) g/dL Hct (36.0-46.0) % MCV (80.0-98.0) fL MCH (27.0-32.0) pg MCHC (31.0-37.0) g/dL RDW Std Deviation (28.0-62.0) fl RDW Coeff of Haley (11.0-15.0) % Plt Count (150-400) K/uL MPV (7.40-12.00) fL Neut % (Auto) (48.0-80.0) % Lymph % (Auto) (16.0-40.0) % [place] % (Auto) (0.0-15.0) % Eos % (Auto) (0.0-7.0) % Baso % (Auto) (0.0-1.5) % Neut # (Auto) (1.4-5.7) K/uL Lymph # (Auto) (0.6-2.4) K/uL [place] # (Auto) (0.0-0.8) K/uL Eos # (Auto) (0.0-0.7) K/uL Baso # (Auto) (0.0-0.1) K/uL Nucleated RBC % /100WBC Nucleated RBCs # K/uL INR 1.65 Sodium (136-145) mmol/L Potassium (3.5-5.1) mmol/L Chloride (98-107) mmol/L Carbon Dioxide (21.0-32.0) mmol/L BUN (7.0-18.0) mg/dL Creatinine (0.6-1.0) mg/dL Est Cr Clr Drug Dosing mL/min Estimated GFR (MDRD) ml/min Glucose (74-106) mg/dL POC Glucose (70-99) mg/dL Calcium (8.5-10.1) mg/dL Phosphorus (2.6-4.7) mg/dL Magnesium (1.8-2.4) mg/dL Total Bilirubin (0.2-1.0) mg/dL AST (15-37) IU/L ALT (14-63) IU/L Alkaline Phosphatase (46-116) U/L Ammonia 89 H (19-54) ug/dL Total Protein (6.4-8.2) g/dL Albumin (3.4-5.0) g/dL Globulin (2.6-4.0) g/dL Albumin/Globulin Ratio (0.9-1.6) Fluid Source Fluid Specific Grav Fluid Tot Bilirubin mg/dL Fluid Lipase u/L Vancomycin Trough 5.0 (5.0-10.0) ug/mL Result Diagrams: 12/10/20 05:03 12/10/20 05:03 Jignesh Results Last 24 hrs: Microbiology 12/09/20 02:40 Gram Stain - Final Peritoneal Fluid Sepsis Event Note - Focused Exam Vital Signs: Vital Signs Temp Pulse Resp BP Pulse Ox 12/10/20 12:00 36.5 C 69 16 134/69 99 12/10/20 08:00 36.9 C 70 16 162/74 H 98 12/10/20 05:00 35.9 C L 69 15 148/67 H 99 - Problem List & Annotations (1) Ascites SNOMED Code(s): 616612130 Code(s): R18.8 - OTHER ASCITES Status: Acute Priority: High Current Visit: Yes Qualifiers: Ascites type: other type Qualified Code(s): R18.8 - Other ascites (2) Hepatic encephalopathy SNOMED Code(s): 17029092 Code(s): K72.90 - HEPATIC FAILURE, UNSPECIFIED WITHOUT COMA Status: Acute Priority: High Current Visit: Yes (3) Liver failure SNOMED Code(s): 13426357 Code(s): K72.90 - HEPATIC FAILURE, UNSPECIFIED WITHOUT COMA Status: Acute Priority: High Current Visit: Yes Qualifiers: Hepatic coma status: without hepatic coma (4) Pleural effusion, left SNOMED Code(s): 38295134 Code(s): J90 - PLEURAL EFFUSION, NOT ELSEWHERE CLASSIFIED Status: Acute Priority: High Current Visit: Yes - My Orders Last 24 Hours: My Active Orders 12/10/20 Breakfast Clear Liquid Diet [DIET] 12/10/20 09:03 Resuscitation Status Routine 12/10/20 14:00 Lactulose [Chronulac] 10 gm PO TID 12/10/20 16:30 Potassium Chloride 40 meq Sodium Chloride 0.9% [Normal Saline] 250 ml IV ONETIME 12/11/20 Breakfast Advance Diet Instructions [DIET]
[2020-12-10] MEDS ORDERED: Potassium Chloride Riders 40 MEQ in Premix Bag 1 BAG IV ONE (16:00)
[2020-12-10] MEDS: Rifaximin 550 MG Tab PO SCH ×2 (16:58→20:48)
--- NOTE | 2020-12-10 18:04 | PCM.SN.2 ---
- Free Text/Narrative Note: Consulted GI Dr. Frances in [place]. Recommended: -Starting spironolactone 50 mg twice daily. -Oral vitamin K 5 mg daily x7 days. -Monitor kidney function. Dr. Frances agreed to see patient in clinic once stabilized. [facility] [address] [place] [id number] Time Documentation
[2020-12-10] MEDS ORDERED: Phytonadione 5 MG Tab PO ONE (18:15)
[2020-12-10] MEDS: Spironolactone 25 MG Tab PO SCH ×2 (19:52→21:08)
[2020-12-10] MEDS ORDERED: Phytonadione 1 MG/0.5 ML Syringe PO ONE (20:30)
[2020-12-11] MEDS: Piperacillin/Tazobactam 3.375 GM in Sodium Chloride 0.9% 50 ML IV SCH ×3 (00:19→17:03)
[2020-12-11] MEDS: Lactulose Soln 10 GM/15 ML 15 ML UD Cup PO SCH ×3 (05:37→21:01)
[2020-12-11 07:10] LABS: BLOOD UREA NITROGEN,BUN 9 mg/dL (7.0-18.0); CARBON DIOXIDE,CO2 25.2 mmol/L (21.0-32.0); CHLORIDE,CL 96 mmol/L (98-107); GLUCOSE RANDOM 139 mg/dL (74-106); POTASSIUM,K 3.1 mmol/L (3.5-5.1); SODIUM,NA 132 mmol/L (136-145)
[2020-12-11] MEDS: Pantoprazole 40 MG in Sodium Chloride 0.9% 10 ML IV SCH ×2 (08:33→20:59)
[2020-12-11] MEDS: VANCOmycin 1.5 GM/300 ML 1.5 GM in Premix Bag 1 BAG IV SCH ×2 (08:34→15:17)
[2020-12-11] MEDS: Spironolactone 25 MG Tab PO SCH ×2 (08:34→21:01)
[2020-12-11] MEDS: Rifaximin 550 MG Tab PO SCH ×2 (08:34→21:00)
[2020-12-11] MEDS: Phosphorus #1 250 MG Tab PO SCH ×2 (10:10→21:00)
[2020-12-11] MEDS: Potassium Chloride 20 MEQ Tab.ER PO SCH ×3 (10:10→21:01)
--- NOTE | 2020-12-11 12:30 | PCM.PN ---
<ZachariahMehrdadraymundoabigail - Last Filed: 12/11/20 19:16> - General Info Date of Service: 12/11/20 Admission Dx/Problem (Free Text): Admission Diagnosis/Problem Admission Diagnosis/Problem Ascites Subjective Update: 59-year-old female admitted for liver cirrhosis, hepatic encephalopathy, ascites and pleural effusions. This morning patient's mentation is slightly improved, she continues to remain altered.. She remains slow to respond but is able to an swer questions. Patient does not appear to be in any distress. Ammonia is downtrending, but bilirubin elevated. Patient's meld score is at least 22, reviewing the charts from [facility] it appears that patient also has a right lung mass which might preclude her from pursuing lung transplant. Patie nt overall has a poor prognosis. Patient's is accompanied by their daughter Cindi today. Family would like the day to discuss CODE STATUS with other members. - Review of Systems General: Reports: Other (Altered mental status.) Pulmonary: Denies: Shortness of Breath Cardiovascular: Reports: Edema. Denies: Palpitations Gastrointestinal: Denies: Vomiting Musculoskeletal: Denies: Joint Swelling Skin: Reports: Jaundice Neurological: Reports: Confusion - Patient Data Vitals - Most Recent: Last Vital Signs Temp 98.4 F 12/11/20 08:00 Pulse 86 12/11/20 08:00 Resp 20 12/11/20 08:00 BP 152/60 H 12/11/20 08:00 Pulse Ox 96 12/11/20 08:00 Weight - Most Recent: 65.1 kg I&O - Last 24 Hours: Intake & Output 12/10/20 12/11/20 12/11/20 22:59 06:59 14:59 Intake Total 625 1060 Output Total 300 0 Balance 325 1060 Lab Results Last 24 Hours: Laboratory Results - last 24 hr 12/11/20 12/11/20 12/11/20 Range/Units 06:25 06:25 06:25 WBC 9.29 (4.0-11.0) K/uL RBC 2.99 L (4.30-5.90) M/uL Hgb 10.3 L (12.0-16.0) g/dL Hct 29.6 L (36.0-46.0) % MCV 99.0 H (80.0-98.0) fL MCH 34.4 H (27.0-32.0) pg MCHC 34.8 (31.0-37.0) g/dL RDW Std Deviation 51.4 (28.0-62.0) fl RDW Coeff of Haley 14 (11.0-15.0) % Plt Count 46 L (150-400) K/uL MPV 10.10 (7.40-12.00) fL Neut % (Auto) 79.5 (48.0-80.0) % Lymph % (Auto) 11.1 L (16.0-40.0) % Dewey % (Auto) 9.1 (0.0-15.0) % Eos % (Auto) 0.1 (0.0-7.0) % Baso % (Auto) 0.2 (0.0-1.5) % Neut # (Auto) 7.4 H (1.4-5.7) K/uL Lymph # (Auto) 1.0 (0.6-2.4) K/uL Dewey # (Auto) 0.9 H (0.0-0.8) K/uL Eos # (Auto) 0.0 (0.0-0.7) K/uL Baso # (Auto) 0.0 (0.0-0.1) K/uL Nucleated RBC % 0.0 /100WBC Nucleated RBCs # 0 K/uL INR 1.61 Sodium 132 L (136-145) mmol/L Potassium 3.1 L (3.5-5.1) mmol/L Chloride 96 L (98-107) mmol/L Carbon Dioxide 25.2 (21.0-32.0) mmol/L BUN 9 (7.0-18.0) mg/dL Creatinine 0.5 L (0.6-1.0) mg/dL Est Cr Clr Drug Dosing 123.72 mL/min Estimated GFR (MDRD) > 60.0 ml/min Glucose 139 H (74-106) mg/dL Calcium 7.2 L (8.5-10.1) mg/dL Phosphorus 1.4 L (2.6-4.7) mg/dL Magnesium 2.0 (1.8-2.4) mg/dL Total Bilirubin 7.7 H (0.2-1.0) mg/dL AST 58 H (15-37) IU/L ALT 22 (14-63) IU/L Alkaline Phosphatase 58 (46-116) U/L Ammonia (19-54) ug/dL Total Protein 6.3 L (6.4-8.2) g/dL Albumin 2.4 L (3.4-5.0) g/dL Globulin 3.9 (2.6-4.0) g/dL Albumin/Globulin Ratio 0.6 L (0.9-1.6) 12/11/20 Range/Units 06:25 WBC (4.0-11.0) K/uL RBC (4.30-5.90) M/uL Hgb (12.0-16.0) g/dL Hct (36.0-46.0) % MCV (80.0-98.0) fL MCH (27.0-32.0) pg MCHC (31.0-37.0) g/dL RDW Std Deviation (28.0-62.0) fl RDW Coeff of Haley (11.0-15.0) % Plt Count (150-400) K/uL MPV (7.40-12.00) fL Neut % (Auto) (48.0-80.0) % Lymph % (Auto) (16.0-40.0) % Dewey % (Auto) (0.0-15.0) % Eos % (Auto) (0.0-7.0) % Baso % (Auto) (0.0-1.5) % Neut # (Auto) (1.4-5.7) K/uL Lymph # (Auto) (0.6-2.4) K/uL Dewey # (Auto) (0.0-0.8) K/uL Eos # (Auto) (0.0-0.7) K/uL Baso # (Auto) (0.0-0.1) K/uL Nucleated RBC % /100WBC Nucleated RBCs # K/uL INR Sodium (136-145) mmol/L Potassium (3.5-5.1) mmol/L Chloride (98-107) mmol/L Carbon Dioxide (21.0-32.0) mmol/L BUN (7.0-18.0) mg/dL Creatinine (0.6-1.0) mg/dL Est Cr Clr Drug Dosing mL/min Estimated GFR (MDRD) ml/min Glucose (74-106) mg/dL Calcium (8.5-10.1) mg/dL Phosphorus (2.6-4.7) mg/dL Magnesium (1.8-2.4) mg/dL Total Bilirubin (0.2-1.0) mg/dL AST (15-37) IU/L ALT (14-63) IU/L Alkaline Phosphatase (46-116) U/L Ammonia 34 (19-54) ug/dL Total Protein (6.4-8.2) g/dL Albumin (3.4-5.0) g/dL Globulin (2.6-4.0) g/dL Albumin/Globulin Ratio (0.9-1.6) Jignesh Results Last 24 Hours: Microbiology 12/09/20 02:40 Miscellaneous Reference Culture - Preliminary Peritoneal Fluid Gram Stain - Final Med Orders - Current: Current Medications Albuterol/Ipratropium (Albuterol/Ipratropium 3.0-0.5 Mg/3 Ml Neb Soln) 3 ml NEB Q4HRRT PRN PRN Reason: Shortness Of Breath/wheezing Piperacillin Sod/Tazobactam (Sod 3.375 gm/ Sodium Chloride) 50 mls @ 100 mls/hr IV Q8H [facility] Last Admin: 12/11/20 10:34 Dose: 100 mls/hr Documented by: Pantoprazole Sodium 40 mg/ (Sodium Chloride) 10 mls @ 300 mls/hr IV Q12HR [facility] Last Admin: 12/11/20 08:33 Dose: 300 mls/hr Documented by: Vancomycin HCl 1.5 gm/ Premix 300 mls @ 200 mls/hr IV Q8H [facility] Last Admin: 12/11/20 08:34 Dose: 200 mls/hr Documented by: Potassium Chloride 40 meq/ (Sodium Chloride) 270 mls @ 68 mls/hr IV ONETIME ONE Stop: 12/11/20 14:13 Last Admin: 12/11/20 11:20 Dose: 68 mls/hr Documented by: Lactulose (Lactulose Soln 10 Gm/15 Ml 15 Ml Ud Cup) 10 gm PO TID [facility] Last Admin: 12/11/20 05:37 Dose: 10 gm Documented by: Ondansetron HCl (Ondansetron 4 Mg/2 Ml Sdv) 4 mg IVPUSH Q4H PRN PRN Reason: Nausea/Vomiting Potassium Chloride (Potassium Chloride 20 Meq Tab.Er) 40 meq PO TID [facility] Stop: 12/12/20 12:00 Last Admin: 12/11/20 10:10 Dose: 40 meq Documented by: Rifaximin (Rifaximin 550 Mg Tab) 550 mg PO BID [facility] Last Admin: 12/11/20 08:34 Dose: 550 mg Documented by: Sodium Chloride (Sodium Chloride 0.9% 10 Ml Syringe) 10 ml FLUSH ASDIRECTED PRN PRN Reason: Keep Vein Open Sodium Chloride (Sodium Chloride 0.9% 2.5 Ml Syringe) 2.5 ml FLUSH ASDIRECTED PRN PRN Reason: Keep Vein Open Sodium Phosphate (Phosphorus #1 250 Mg Tab) 500 mg PO BID [facility] Stop: 12/11/20 23:59 Last Admin: 12/11/20 10:10 Dose: 500 mg Documented by: Spironolactone (Spironolactone 25 Mg Tab) 50 mg PO BID [facility] Last Admin: 12/11/20 08:34 Dose: 50 mg Documented by: Vancomycin HCl (Pharmacy To Dose - Vancomycin) 1 dose .XX ASDIRECTED BRANDO Discontinued Medications Folic Acid (Folic Acid 50 Mg/10 Ml Mdv) 1 mg IV STAT STA Stop: 12/08/20 22:44 Last Admin: 12/08/20 23:24 Dose: 1 mg Documented by: Thiamine HCl 100 mg/ Sodium (Chloride) 101 mls @ 202 mls/hr IV ONETIME ONE Stop: 12/08/20 22:44 Last Admin: 12/08/20 23:23 Dose: Not Given Documented by: Albumin Human (Flexbumin 25%) 50 mls @ 50 mls/hr IV ONETIME ONE Stop: 12/09/20 05:29 Last Admin: 12/09/20 04:54 Dose: 50 mls/hr Documented by: Albumin Human (Flexbumin 25%) 50 mls @ 50 mls/hr IV ONETIME ONE Stop: 12/09/20 07:44 Last Admin: 12/09/20 06:44 Dose: 50 mls/hr Documented by: Vancomycin HCl 1 gm/ Sodium (Chloride) 250 mls @ 250 mls/hr IV Q8H [facility] Last Admin: 12/11/20 01:24 Dose: 250 mls/hr Documented by: Magnesium Sulfate 4 gm/ Premix 100 mls @ 50 mls/hr IV ONETIME ONE Stop: 12/10/20 08:32 Last Admin: 12/10/20 06:49 Dose: 50 mls/hr Documented by: Potassium Chloride 30 meq/ (Sodium Chloride) 265 mls @ 88.333 mls/hr IV ONETIME ONE Stop: 12/10/20 10:44 Last Admin: 12/10/20 07:58 Dose: 88.333 mls/hr Documented by: Potassium Chloride 30 meq/ (Sodium Chloride) 265 mls @ 88.333 mls/hr IV ONETIME ONE Stop: 12/10/20 13:44 Last Admin: 12/10/20 11:57 Dose: 88.333 mls/hr Documented by: Potassium Chloride 40 meq/ (Sodium Chloride) 270 mls @ 68 mls/hr IV ONETIME ONE Stop: 12/10/20 20:28 Last Admin: 12/10/20 16:58 Dose: 68 mls/hr Documented by: Iopamidol (Iopamidol 755 Mg/Ml 100 Ml Bottle) 100 ml IVPUSH ONETIME ONE Stop: 12/09/20 04:16 Last Admin: 12/09/20 10:17 Dose: Not Given Documented by: Lactulose (Lactulose Soln 10 Gm/15 Ml 15 Ml Ud Cup) 20 gm PO ONETIME ONE Stop: 12/09/20 00:54 Last Admin: 12/09/20 01:02 Dose: 20 gm Documented by: Lactulose (Lactulose Soln 10 Gm/15 Ml 15 Ml Ud Cup) 10 gm PO ONETIME ONE Stop: 12/09/20 05:44 Last Admin: 12/09/20 05:59 Dose: 10 gm Documented by: Lactulose (Lactulose Soln 10 Gm/15 Ml 15 Ml Ud Cup) 10 gm PO BID [facility] Last Admin: 12/10/20 08:41 Dose: 10 gm Documented by: Lidocaine HCl (Lidocaine 1% 5 Ml Sdv) 10 ml INJECT ONETIME ONE Stop: 12/09/20 01:02 Last Admin: 12/09/20 02:49 Dose: Not Given Documented by: Phytonadione (Phytonadione 1 Mg/0.5 Ml Syringe) 5 mg PO ONETIME ONE Stop: 12/10/20 20:31 Last Admin: 12/10/20 20:47 Dose: 5 mg Documented by: Sodium Phosphate (Phosphorus #1 250 Mg Tab) 500 mg PO ONETIME ONE Stop: 12/10/20 06:34 Last Admin: 12/10/20 06:48 Dose: 500 mg Documented by: Thiamine HCl (Thiamine 200 Mg/2 Ml Mdv) Confirm Administered Dose 200 mg .ROUTE .STK-MED ONE Stop: 12/08/20 23:17 Last Admin: 12/08/20 23:23 Dose: Not Given Documented by: Thiamine HCl (Thiamine 200 Mg/2 Ml Mdv) 200 mg IVPUSH ONETIME ONE Stop: 12/08/20 23:20 Last Admin: 12/08/20 23:24 Dose: 200 mg Documented by: - Exam General: No Acute Distress, Lethargic. No: Alert, Oriented HEENT: Pupils Equal, Pupils Reactive, Scleral Icterus Neck: Supple, No JVD Lungs: Decreased Breath Sounds, Crackles Cardiovascular: Regular Rate, Regular Rhythm GI/Abdominal Exam: Distended Extremities: Pedal Edema - Patient Data Lab Results Last 24 hrs: Laboratory Results - last 24 hr 12/11/20 12/11/20 12/11/20 Range/Units 06:25 06:25 06:25 WBC 9.29 (4.0-11.0) K/uL RBC 2.99 L (4.30-5.90) M/uL Hgb 10.3 L (12.0-16.0) g/dL Hct 29.6 L (36.0-46.0) % MCV 99.0 H (80.0-98.0) fL MCH 34.4 H (27.0-32.0) pg MCHC 34.8 (31.0-37.0) g/dL RDW Std Deviation 51.4 (28.0-62.0) fl RDW Coeff of Haley 14 (11.0-15.0) % Plt Count 46 L (150-400) K/uL MPV 10.10 (7.40-12.00) fL Neut % (Auto) 79.5 (48.0-80.0) % Lymph % (Auto) 11.1 L (16.0-40.0) % Dewey % (Auto) 9.1 (0.0-15.0) % Eos % (Auto) 0.1 (0.0-7.0) % Baso % (Auto) 0.2 (0.0-1.5) % Neut # (Auto) 7.4 H (1.4-5.7) K/uL Lymph # (Auto) 1.0 (0.6-2.4) K/uL Dewey # (Auto) 0.9 H (0.0-0.8) K/uL Eos # (Auto) 0.0 (0.0-0.7) K/uL Baso # (Auto) 0.0 (0.0-0.1) K/uL Nucleated RBC % 0.0 /100WBC Nucleated RBCs # 0 K/uL INR 1.61 Sodium 132 L (136-145) mmol/L Potassium 3.1 L (3.5-5.1) mmol/L Chloride 96 L (98-107) mmol/L Carbon Dioxide 25.2 (21.0-32.0) mmol/L BUN 9 (7.0-18.0) mg/dL Creatinine 0.5 L (0.6-1.0) mg/dL Est Cr Clr Drug Dosing 123.72 mL/min Estimated GFR (MDRD) > 60.0 ml/min Glucose 139 H (74-106) mg/dL Calcium 7.2 L (8.5-10.1) mg/dL Phosphorus 1.4 L (2.6-4.7) mg/dL Magnesium 2.0 (1.8-2.4) mg/dL Total Bilirubin 7.7 H (0.2-1.0) mg/dL AST 58 H (15-37) IU/L ALT 22 (14-63) IU/L Alkaline Phosphatase 58 (46-116) U/L Ammonia (19-54) ug/dL Total Protein 6.3 L (6.4-8.2) g/dL Albumin 2.4 L (3.4-5.0) g/dL Globulin 3.9 (2.6-4.0) g/dL Albumin/Globulin Ratio 0.6 L (0.9-1.6) 12/11/20 Range/Units 06:25 WBC (4.0-11.0) K/uL RBC (4.30-5.90) M/uL Hgb (12.0-16.0) g/dL Hct (36.0-46.0) % MCV (80.0-98.0) fL MCH (27.0-32.0) pg MCHC (31.0-37.0) g/dL RDW Std Deviation (28.0-62.0) fl RDW Coeff of Haley (11.0-15.0) % Plt Count (150-400) K/uL MPV (7.40-12.00) fL Neut % (Auto) (48.0-80.0) % Lymph % (Auto) (16.0-40.0) % Dewey % (Auto) (0.0-15.0) % Eos % (Auto) (0.0-7.0) % Baso % (Auto) (0.0-1.5) % Neut # (Auto) (1.4-5.7) K/uL Lymph # (Auto) (0.6-2.4) K/uL Dewey # (Auto) (0.0-0.8) K/uL Eos # (Auto) (0.0-0.7) K/uL Baso # (Auto) (0.0-0.1) K/uL Nucleated RBC % /100WBC Nucleated RBCs # K/uL INR Sodium (136-145) mmol/L Potassium (3.5-5.1) mmol/L Chloride (98-107) mmol/L Carbon Dioxide (21.0-32.0) mmol/L BUN (7.0-18.0) mg/dL Creatinine (0.6-1.0) mg/dL Est Cr Clr Drug Dosing mL/min Estimated GFR (MDRD) ml/min Glucose (74-106) mg/dL Calcium (8.5-10.1) mg/dL Phosphorus (2.6-4.7) mg/dL Magnesium (1.8-2.4) mg/dL Total Bilirubin (0.2-1.0) mg/dL AST (15-37) IU/L ALT (14-63) IU/L Alkaline Phosphatase (46-116) U/L Ammonia 34 (19-54) ug/dL Total Protein (6.4-8.2) g/dL Albumin (3.4-5.0) g/dL Globulin (2.6-4.0) g/dL Albumin/Globulin Ratio (0.9-1.6) Result Diagrams: 12/11/20 06:25 12/11/20 06:25 Jignesh Results Last 24 hrs: Microbiology 12/09/20 02:40 Miscellaneous Reference Culture - Preliminary Peritoneal Fluid Gram Stain - Final Sepsis Event Note - Evaluation Sepsis Screening Result: No Definite Risk - Focused Exam Vital Signs: Vital Signs Temp Pulse Resp BP Pulse Ox 12/11/20 08:00 98.4 F 86 20 152/60 H 96 12/11/20 04:00 98.6 F 73 17 165/76 H 97 - Problem List & Annotations (1) Ascites SNOMED Code(s): 407502705 Code(s): R18.8 - OTHER ASCITES Status: Acute Priority: High Qualifiers: Ascites type: other type Qualified Code(s): R18.8 - Other ascites (2) Hepatic encephalopathy SNOMED Code(s): 34062907 Code(s): K72.90 - HEPATIC FAILURE, UNSPECIFIED WITHOUT COMA Status: Acute Priority: High (3) Liver failure SNOMED Code(s): 69597913 Code(s): K72.90 - HEPATIC FAILURE, UNSPECIFIED WITHOUT COMA Status: Acute Priority: High Qualifiers: Hepatic coma status: without hepatic coma (4) Pleural effusion, left SNOMED Code(s): 20116231 Code(s): J90 - PLEURAL EFFUSION, NOT ELSEWHERE CLASSIFIED Status: Acute Priority: High (5) Hypokalemia SNOMED Code(s): 94466894 Code(s): E87.6 - HYPOKALEMIA Status: Acute - Problem List Review Problem List Initiated/Reviewed/Updated: Yes - My Orders Last 24 Hours: My Active Orders 12/10/20 15:00 Rifaximin [Xifaxan] 550 mg PO BID 12/10/20 18:15 Spironolactone [Aldactone] 50 mg PO BID 12/11/20 09:10 Potassium Chloride [Klor-Con M20] 40 meq PO TID 12/11/20 09:30 Phosphorus #1 [Neutra-Phos] 500 mg PO BID 12/11/20 10:15 Potassium Chloride 40 meq Sodium Chloride 0.9% [Normal Saline] 250 ml IV ONETIME 12/11/20 11:43 Consult to Hospice [CONS] Routine 12/12/20 05:11 AMMONIA VENOUS [CHEM] DAILY BILIRUBIN TOTAL [CHEM] DAILY CBC WITH AUTO DIFF [HEME] DAILY COMPREHENSIVE METABOLIC PN,CMP [CHEM] DAILY INR,PT,PROTHROMBIN TIME [COAG] DAILY MAGNESIUM [CHEM] DAILY PHOSPHORUS [CHEM] DAILY 12/13/20 05:11 AMMONIA VENOUS [CHEM] DAILY BILIRUBIN TOTAL [CHEM] DAILY CBC WITH AUTO DIFF [HEME] DAILY COMPREHENSIVE METABOLIC PN,CMP [CHEM] DAILY INR,PT,PROTHROMBIN TIME [COAG] DAILY MAGNESIUM [CHEM] DAILY PHOSPHORUS [CHEM] DAILY - Plan Plan:: 59-year-old female admitted for hepatic encephalopathy , patient has liver cirrhosis on imaging likely secondary to previous history of alcohol abuse -Status post paracentesis 9L fluids were obtained. -Patient received some IV infusion of albumin for fluid resuscitation -Lactulose bid. Added Rifaximin 550mg bid for elevated ammonia. -Spironolactone. -Oral vitamin K. -Replete electrolytes including potassium, magnesium and phosphorus. -DuoNeb. Zofran. Protonix. Update: Spoke with and daughter this evening. Family has decided to make the patient DNR/DNI. Family stated they discussed with patient and decided of the family. CODE STATUS: DNR/DNI. <Julissa Fleming - Last Filed: 12/15/20 13:14> - Patient Data Vitals - Most Recent: Last Vital Signs Temp 36.6 C 12/11/20 21:00 Pulse 77 12/11/20 21:00 Resp 17 12/11/20 21:00 BP 158/76 H 12/11/20 21:00 Pulse Ox 96 12/11/20 21:00 I&O - Last 24 Hours: Intake & Output 12/11/20 12/11/20 12/11/20 06:59 14:59 22:59 Intake Total 1060 1410 Output Total 0 2 Balance 1060 1408 Lab Results Last 24 Hours: Laboratory Results - last 24 hr 12/11/20 12/11/20 12/11/20 Range/Units 06:25 06:25 06:25 WBC 9.29 (4.0-11.0) K/uL RBC 2.99 L (4.30-5.90) M/uL Hgb 10.3 L (12.0-16.0) g/dL Hct 29.6 L (36.0-46.0) % MCV 99.0 H (80.0-98.0) fL MCH 34.4 H (27.0-32.0) pg MCHC 34.8 (31.0-37.0) g/dL RDW Std Deviation 51.4 (28.0-62.0) fl RDW Coeff of Haley 14 (11.0-15.0) % Plt Count 46 L (150-400) K/uL MPV 10.10 (7.40-12.00) fL Neut % (Auto) 79.5 (48.0-80.0) % Lymph % (Auto) 11.1 L (16.0-40.0) % Dewey % (Auto) 9.1 (0.0-15.0) % Eos % (Auto) 0.1 (0.0-7.0) % Baso % (Auto) 0.2 (0.0-1.5) % Neut # (Auto) 7.4 H (1.4-5.7) K/uL Lymph # (Auto) 1.0 (0.6-2.4) K/uL Dewey # (Auto) 0.9 H (0.0-0.8) K/uL Eos # (Auto) 0.0 (0.0-0.7) K/uL Baso # (Auto) 0.0 (0.0-0.1) K/uL Nucleated RBC % 0.0 /100WBC Nucleated RBCs # 0 K/uL INR 1.61 Sodium 132 L (136-145) mmol/L Potassium 3.1 L (3.5-5.1) mmol/L Chloride 96 L (98-107) mmol/L Carbon Dioxide 25.2 (21.0-32.0) mmol/L BUN 9 (7.0-18.0) mg/dL Creatinine 0.5 L (0.6-1.0) mg/dL Est Cr Clr Drug Dosing 123.72 mL/min Estimated GFR (MDRD) > 60.0 ml/min Glucose 139 H (74-106) mg/dL Calcium 7.2 L (8.5-10.1) mg/dL Phosphorus 1.4 L (2.6-4.7) mg/dL Magnesium 2.0 (1.8-2.4) mg/dL Total Bilirubin 7.7 H (0.2-1.0) mg/dL AST 58 H (15-37) IU/L ALT 22 (14-63) IU/L Alkaline Phosphatase 58 (46-116) U/L Ammonia (19-54) ug/dL Total Protein 6.3 L (6.4-8.2) g/dL Albumin 2.4 L (3.4-5.0) g/dL Globulin 3.9 (2.6-4.0) g/dL Albumin/Globulin Ratio 0.6 L (0.9-1.6) 12/11/20 Range/Units 06:25 WBC (4.0-11.0) K/uL RBC (4.30-5.90) M/uL Hgb (12.0-16.0) g/dL Hct (36.0-46.0) % MCV (80.0-98.0) fL MCH (27.0-32.0) pg MCHC (31.0-37.0) g/dL RDW Std Deviation (28.0-62.0) fl RDW Coeff of Haley (11.0-15.0) % Plt Count (150-400) K/uL MPV (7.40-12.00) fL Neut % (Auto) (48.0-80.0) % Lymph % (Auto) (16.0-40.0) % Dewey % (Auto) (0.0-15.0) % Eos % (Auto) (0.0-7.0) % Baso % (Auto) (0.0-1.5) % Neut # (Auto) (1.4-5.7) K/uL Lymph # (Auto) (0.6-2.4) K/uL Dewey # (Auto) (0.0-0.8) K/uL Eos # (Auto) (0.0-0.7) K/uL Baso # (Auto) (0.0-0.1) K/uL Nucleated RBC % /100WBC Nucleated RBCs # K/uL INR Sodium (136-145) mmol/L Potassium (3.5-5.1) mmol/L Chloride (98-107) mmol/L Carbon Dioxide (21.0-32.0) mmol/L BUN (7.0-18.0) mg/dL Creatinine (0.6-1.0) mg/dL Est Cr Clr Drug Dosing mL/min Estimated GFR (MDRD) ml/min Glucose (74-106) mg/dL Calcium (8.5-10.1) mg/dL Phosphorus (2.6-4.7) mg/dL Magnesium (1.8-2.4) mg/dL Total Bilirubin (0.2-1.0) mg/dL AST (15-37) IU/L ALT (14-63) IU/L Alkaline Phosphatase (46-116) U/L Ammonia 34 (19-54) ug/dL Total Protein (6.4-8.2) g/dL Albumin (3.4-5.0) g/dL Globulin (2.6-4.0) g/dL Albumin/Globulin Ratio (0.9-1.6) Jignesh Results Last 24 Hours: Microbiology 12/09/20 02:40 Miscellaneous Reference Culture - Preliminary Peritoneal Fluid Gram Stain - Final Med Orders - Current: Current Medications Albuterol/Ipratropium (Albuterol/Ipratropium 3.0-0.5 Mg/3 Ml Neb Soln) 3 ml NEB Q4HRRT PRN PRN Reason: Shortness Of Breath/wheezing Piperacillin Sod/Tazobactam (Sod 3.375 gm/ Sodium Chloride) 50 mls @ 100 mls/hr IV Q8H [facility] Last Admin: 12/11/20 17:03 Dose: 100 mls/hr Documented by: Pantoprazole Sodium 40 mg/ (Sodium Chloride) 10 mls @ 300 mls/hr IV Q12HR [facility] Last Admin: 12/11/20 20:59 Dose: 300 mls/hr Documented by: Vancomycin HCl 1.5 gm/ Premix 300 mls @ 200 mls/hr IV Q8H [facility] Last Admin: 12/11/20 15:17 Dose: 200 mls/hr Documented by: Lactulose (Lactulose Soln 10 Gm/15 Ml 15 Ml Ud Cup) 10 gm PO TID [facility] Last Admin: 12/11/20 21:01 Dose: 10 gm Documented by: Ondansetron HCl (Ondansetron 4 Mg/2 Ml Sdv) 4 mg IVPUSH Q4H PRN PRN Reason: Nausea/Vomiting Potassium Chloride (Potassium Chloride 20 Meq Tab.Er) 40 meq PO TID [facility] Stop: 12/12/20 12:00 Last Admin: 12/11/20 21:01 Dose: 40 meq Documented by: Rifaximin (Rifaximin 550 Mg Tab) 550 mg PO BID [facility] Last Admin: 12/11/20 21:00 Dose: 550 mg Documented by: Sodium Chloride (Sodium Chloride 0.9% 10 Ml Syringe) 10 ml FLUSH ASDIRECTED PRN PRN Reason: Keep Vein Open Sodium Chloride (Sodium Chloride 0.9% 2.5 Ml Syringe) 2.5 ml FLUSH ASDIRECTED PRN PRN Reason: Keep Vein Open Sodium Phosphate (Phosphorus #1 250 Mg Tab) 500 mg PO BID [facility] Stop: 12/11/20 23:59 Last Admin: 12/11/20 21:00 Dose: 500 mg Documented by: Spironolactone (Spironolactone 25 Mg Tab) 50 mg PO BID [facility] Last Admin: 12/11/20 21:01 Dose: 50 mg Documented by: Vancomycin HCl (Pharmacy To Dose - Vancomycin) 1 dose .XX ASDIRECTED [facility] Discontinued Medications Folic Acid (Folic Acid 50 Mg/10 Ml Mdv) 1 mg IV STAT STA Stop: 12/08/20 22:44 Last Admin: 12/08/20 23:24 Dose: 1 mg Documented by: Thiamine HCl 100 mg/ Sodium (Chloride) 101 mls @ 202 mls/hr IV ONETIME ONE Stop: 12/08/20 22:44 Last Admin: 12/08/20 23:23 Dose: Not Given Documented by: Albumin Human (Flexbumin 25%) 50 mls @ 50 mls/hr IV ONETIME ONE Stop: 12/09/20 05:29 Last Admin: 12/09/20 04:54 Dose: 50 mls/hr Documented by: Albumin Human (Flexbumin 25%) 50 mls @ 50 mls/hr IV ONETIME ONE Stop: 12/09/20 07:44 Last Admin: 12/09/20 06:44 Dose: 50 mls/hr Documented by: Vancomycin HCl 1 gm/ Sodium (Chloride) 250 mls @ 250 mls/hr IV Q8H [facility] Last Admin: 12/11/20 01:24 Dose: 250 mls/hr Documented by: Magnesium Sulfate 4 gm/ Premix 100 mls @ 50 mls/hr IV ONETIME ONE Stop: 12/10/20 08:32 Last Admin: 12/10/20 06:49 Dose: 50 mls/hr Documented by: Potassium Chloride 30 meq/ (Sodium Chloride) 265 mls @ 88.333 mls/hr IV ONETIME ONE Stop: 12/10/20 10:44 Last Admin: 12/10/20 07:58 Dose: 88.333 mls/hr Documented by: Potassium Chloride 30 meq/ (Sodium Chloride) 265 mls @ 88.333 mls/hr IV ONETIME ONE Stop: 12/10/20 13:44 Last Admin: 12/10/20 11:57 Dose: 88.333 mls/hr Documented by: Potassium Chloride 40 meq/ (Sodium Chloride) 270 mls @ 68 mls/hr IV ONETIME ONE Stop: 12/10/20 20:28 Last Admin: 12/10/20 16:58 Dose: 68 mls/hr Documented by: Potassium Chloride 40 meq/ (Sodium Chloride) 270 mls @ 68 mls/hr IV ONETIME ONE Stop: 12/11/20 14:13 Last Admin: 12/11/20 11:20 Dose: 68 mls/hr Documented by: Iopamidol (Iopamidol 755 Mg/Ml 100 Ml Bottle) 100 ml IVPUSH ONETIME ONE Stop: 12/09/20 04:16 Last Admin: 12/09/20 10:17 Dose: Not Given Documented by: Lactulose (Lactulose Soln 10 Gm/15 Ml 15 Ml Ud Cup) 20 gm PO ONETIME ONE Stop: 12/09/20 00:54 Last Admin: 12/09/20 01:02 Dose: 20 gm Documented by: Lactulose (Lactulose Soln 10 Gm/15 Ml 15 Ml Ud Cup) 10 gm PO ONETIME ONE Stop: 12/09/20 05:44 Last Admin: 12/09/20 05:59 Dose: 10 gm Documented by: Lactulose (Lactulose Soln 10 Gm/15 Ml 15 Ml Ud Cup) 10 gm PO BID [facility] Last Admin: 12/10/20 08:41 Dose: 10 gm Documented by: Lidocaine HCl (Lidocaine 1% 5 Ml Sdv) 10 ml INJECT ONETIME ONE Stop: 12/09/20 01:02 Last Admin: 12/09/20 02:49 Dose: Not Given Documented by: Phytonadione (Phytonadione 1 Mg/0.5 Ml Syringe) 5 mg PO ONETIME ONE Stop: 12/10/20 20:31 Last Admin: 12/10/20 20:47 Dose: 5 mg Documented by: Sodium Phosphate (Phosphorus #1 250 Mg Tab) 500 mg PO ONETIME ONE Stop: 12/10/20 06:34 Last Admin: 12/10/20 06:48 Dose: 500 mg Documented by: Thiamine HCl (Thiamine 200 Mg/2 Ml Mdv) Confirm Administered Dose 200 mg .ROUTE .STK-MED ONE Stop: 12/08/20 23:17 Last Admin: 12/08/20 23:23 Dose: Not Given Documented by: Thiamine HCl (Thiamine 200 Mg/2 Ml Mdv) 200 mg IVPUSH ONETIME ONE Stop: 12/08/20 23:20 Last Admin: 12/08/20 23:24 Dose: 200 mg Documented by: - Patient Data Lab Results Last 24 hrs: Laboratory Results - last 24 hr 12/11/20 12/11/20 12/11/20 Range/Units 06:25 06:25 06:25 WBC 9.29 (4.0-11.0) K/uL RBC 2.99 L (4.30-5.90) M/uL Hgb 10.3 L (12.0-16.0) g/dL Hct 29.6 L (36.0-46.0) % MCV 99.0 H (80.0-98.0) fL MCH 34.4 H (27.0-32.0) pg MCHC 34.8 (31.0-37.0) g/dL RDW Std Deviation 51.4 (28.0-62.0) fl RDW Coeff of Haley 14 (11.0-15.0) % Plt Count 46 L (150-400) K/uL MPV 10.10 (7.40-12.00) fL Neut % (Auto) 79.5 (48.0-80.0) % Lymph % (Auto) 11.1 L (16.0-40.0) % Dewey % (Auto) 9.1 (0.0-15.0) % Eos % (Auto) 0.1 (0.0-7.0) % Baso % (Auto) 0.2 (0.0-1.5) % Neut # (Auto) 7.4 H (1.4-5.7) K/uL Lymph # (Auto) 1.0 (0.6-2.4) K/uL Dewey # (Auto) 0.9 H (0.0-0.8) K/uL Eos # (Auto) 0.0 (0.0-0.7) K/uL Baso # (Auto) 0.0 (0.0-0.1) K/uL Nucleated RBC % 0.0 /100WBC Nucleated RBCs # 0 K/uL INR 1.61 Sodium 132 L (136-145) mmol/L Potassium 3.1 L (3.5-5.1) mmol/L Chloride 96 L (98-107) mmol/L Carbon Dioxide 25.2 (21.0-32.0) mmol/L BUN 9 (7.0-18.0) mg/dL Creatinine 0.5 L (0.6-1.0) mg/dL Est Cr Clr Drug Dosing 123.72 mL/min Estimated GFR (MDRD) > 60.0 ml/min Glucose 139 H (74-106) mg/dL Calcium 7.2 L (8.5-10.1) mg/dL Phosphorus 1.4 L (2.6-4.7) mg/dL Magnesium 2.0 (1.8-2.4) mg/dL Total Bilirubin 7.7 H (0.2-1.0) mg/dL AST 58 H (15-37) IU/L ALT 22 (14-63) IU/L Alkaline Phosphatase 58 (46-116) U/L Ammonia (19-54) ug/dL Total Protein 6.3 L (6.4-8.2) g/dL Albumin 2.4 L (3.4-5.0) g/dL Globulin 3.9 (2.6-4.0) g/dL Albumin/Globulin Ratio 0.6 L (0.9-1.6) 12/11/20 Range/Units 06:25 WBC (4.0-11.0) K/uL RBC (4.30-5.90) M/uL Hgb (12.0-16.0) g/dL Hct (36.0-46.0) % MCV (80.0-98.0) fL MCH (27.0-32.0) pg MCHC (31.0-37.0) g/dL RDW Std Deviation (28.0-62.0) fl RDW Coeff of Haley (11.0-15.0) % Plt Count (150-400) K/uL MPV (7.40-12.00) fL Neut % (Auto) (48.0-80.0) % Lymph % (Auto) (16.0-40.0) % Dewey % (Auto) (0.0-15.0) % Eos % (Auto) (0.0-7.0) % Baso % (Auto) (0.0-1.5) % Neut # (Auto) (1.4-5.7) K/uL Lymph # (Auto) (0.6-2.4) K/uL Dewey # (Auto) (0.0-0.8) K/uL Eos # (Auto) (0.0-0.7) K/uL Baso # (Auto) (0.0-0.1) K/uL Nucleated RBC % /100WBC Nucleated RBCs # K/uL INR Sodium (136-145) mmol/L Potassium (3.5-5.1) mmol/L Chloride (98-107) mmol/L Carbon Dioxide (21.0-32.0) mmol/L BUN (7.0-18.0) mg/dL Creatinine (0.6-1.0) mg/dL Est Cr Clr Drug Dosing mL/min Estimated GFR (MDRD) ml/min Glucose (74-106) mg/dL Calcium (8.5-10.1) mg/dL Phosphorus (2.6-4.7) mg/dL Magnesium (1.8-2.4) mg/dL Total Bilirubin (0.2-1.0) mg/dL AST (15-37) IU/L ALT (14-63) IU/L Alkaline Phosphatase (46-116) U/L Ammonia 34 (19-54) ug/dL Total Protein (6.4-8.2) g/dL Albumin (3.4-5.0) g/dL Globulin (2.6-4.0) g/dL Albumin/Globulin Ratio (0.9-1.6) Result Diagrams: 12/12/20 07:15 12/12/20 07:15 Jignesh Results Last 24 hrs: Microbiology 12/09/20 02:40 Miscellaneous Reference Culture - Preliminary Peritoneal Fluid Gram Stain - Final Sepsis Event Note - Focused Exam Vital Signs: Vital Signs Temp Pulse Resp BP Pulse Ox 12/11/20 21:00 36.6 C 77 17 158/76 H 96 12/11/20 18:00 37.2 C 79 18 143/91 H 98 12/11/20 13:09 36.9 C 69 18 172/83 H 97 - Problem List & Annotations (1) Ascites SNOMED Code(s): 890772888 Code(s): R18.8 - OTHER ASCITES Status: Acute Priority: High Qualifiers: Ascites type: other type Qualified Code(s): R18.8 - Other ascites (2) Hepatic encephalopathy SNOMED Code(s): 51765235 Code(s): K72.90 - HEPATIC FAILURE, UNSPECIFIED WITHOUT COMA Status: Acute Priority: High (3) Liver failure SNOMED Code(s): 11913035 Code(s): K72.90 - HEPATIC FAILURE, UNSPECIFIED WITHOUT COMA Status: Acute Priority: High Qualifiers: Hepatic coma status: without hepatic coma (4) Pleural effusion, left SNOMED Code(s): 16129117 Code(s): J90 - PLEURAL EFFUSION, NOT ELSEWHERE CLASSIFIED Status: Acute Priority: High (5) Palliative care status SNOMED Code(s): 951147710 Code(s): Z51.5 - ENCOUNTER FOR PALLIATIVE CARE Status: Acute - My Orders Last 24 Hours: My Active Orders 12/11/20 Breakfast Advance Diet Instructions [DIET] 12/11/20 08:00 VANCOmycin 1.5 GM/300 ML 1.5 gm Premix Bag 1 bag IV Q8H - Plan Plan:: I have seen and evaluated the patient and agree with the residents note unless specified in my note
--- NOTE | 2020-12-11 21:27 | PCM.SN.2 ---
- Free Text/Narrative Note: Spoke to family in great detail about goals of care, hospice at bedside as well after a long conversation family is leaning more towards comfort care palliative care but would like to discuss further with other members of the family before they make any definitive decision. Proper counseling and support provided. P atient's family very appreciative. Time Documentation
[2020-12-12] MEDS: VANCOmycin 1.5 GM/300 ML 1.5 GM in Premix Bag 1 BAG IV SCH ×2 (00:25→09:47)
[2020-12-12] MEDS: Piperacillin/Tazobactam 3.375 GM in Sodium Chloride 0.9% 50 ML IV SCH ×2 (02:01→08:17)
[2020-12-12] MEDS: Potassium Chloride 20 MEQ Tab.ER PO SCH (06:04)
[2020-12-12] MEDS: Lactulose Soln 10 GM/15 ML 15 ML UD Cup PO SCH (06:05)
--- NOTE | 2020-12-12 07:05 | PCM.PN ---
- General Info Date of Service: 12/12/20 - Patient Data Vitals - Most Recent: Last Vital Signs Temp 97.6 F 12/12/20 04:00 Pulse 109 H 12/12/20 04:00 Resp 19 12/12/20 04:00 BP 170/73 H 12/12/20 04:00 Pulse Ox 94 L 12/12/20 04:00 Weight - Most Recent: 143 lb 8.335 oz I&O - Last 24 Hours: Intake & Output 12/11/20 12/12/20 12/12/20 22:59 06:59 14:59 Intake Total 1410 1050 Output Total 2 600 Balance 1408 450 Lab Results Last 24 Hours: Laboratory Results - last 24 hr 12/11/20 12/11/20 Range/Units 06:25 06:25 Sodium 132 L (136-145) mmol/L Potassium 3.1 L (3.5-5.1) mmol/L Chloride 96 L (98-107) mmol/L Carbon Dioxide 25.2 (21.0-32.0) mmol/L BUN 9 (7.0-18.0) mg/dL Creatinine 0.5 L (0.6-1.0) mg/dL Est Cr Clr Drug Dosing 123.72 mL/min Estimated GFR (MDRD) > 60.0 ml/min Glucose 139 H (74-106) mg/dL Calcium 7.2 L (8.5-10.1) mg/dL Phosphorus 1.4 L (2.6-4.7) mg/dL Magnesium 2.0 (1.8-2.4) mg/dL Total Bilirubin 7.7 H (0.2-1.0) mg/dL AST 58 H (15-37) IU/L ALT 22 (14-63) IU/L Alkaline Phosphatase 58 (46-116) U/L Ammonia 34 (19-54) ug/dL Total Protein 6.3 L (6.4-8.2) g/dL Albumin 2.4 L (3.4-5.0) g/dL Globulin 3.9 (2.6-4.0) g/dL Albumin/Globulin Ratio 0.6 L (0.9-1.6) Jignesh Results Last 24 Hours: Microbiology 12/09/20 02:40 Miscellaneous Reference Culture - Preliminary Peritoneal Fluid Gram Stain - Final Med Orders - Current: Current Medications Albuterol/Ipratropium (Albuterol/Ipratropium 3.0-0.5 Mg/3 Ml Neb Soln) 3 ml NEB Q4HRRT PRN PRN Reason: Shortness Of Breath/wheezing Piperacillin Sod/Tazobactam (Sod 3.375 gm/ Sodium Chloride) 50 mls @ 100 mls/hr IV Q8H [facility] Last Admin: 12/12/20 02:01 Dose: 100 mls/hr Documented by: Pantoprazole Sodium 40 mg/ (Sodium Chloride) 10 mls @ 300 mls/hr IV Q12HR [facility] Last Admin: 12/11/20 20:59 Dose: 300 mls/hr Documented by: Vancomycin HCl 1.5 gm/ Premix 300 mls @ 200 mls/hr IV Q8H [facility] Last Admin: 12/12/20 00:25 Dose: 200 mls/hr Documented by: Lactulose (Lactulose Soln 10 Gm/15 Ml 15 Ml Ud Cup) 10 gm PO TID [facility] Last Admin: 12/12/20 06:05 Dose: 10 gm Documented by: Ondansetron HCl (Ondansetron 4 Mg/2 Ml Sdv) 4 mg IVPUSH Q4H PRN PRN Reason: Nausea/Vomiting Potassium Chloride (Potassium Chloride 20 Meq Tab.Er) 40 meq PO TID [facility] Stop: 12/12/20 12:00 Last Admin: 12/12/20 06:04 Dose: 40 meq Documented by: Rifaximin (Rifaximin 550 Mg Tab) 550 mg PO BID [facility] Last Admin: 12/11/20 21:00 Dose: 550 mg Documented by: Sodium Chloride (Sodium Chloride 0.9% 10 Ml Syringe) 10 ml FLUSH ASDIRECTED PRN PRN Reason: Keep Vein Open Sodium Chloride (Sodium Chloride 0.9% 2.5 Ml Syringe) 2.5 ml FLUSH ASDIRECTED PRN PRN Reason: Keep Vein Open Spironolactone (Spironolactone 25 Mg Tab) 50 mg PO BID [facility] Last Admin: 12/11/20 21:01 Dose: 50 mg Documented by: Vancomycin HCl (Pharmacy To Dose - Vancomycin) 1 dose .XX ASDIRECTED [facility] Discontinued Medications Folic Acid (Folic Acid 50 Mg/10 Ml Mdv) 1 mg IV STAT STA Stop: 12/08/20 22:44 Last Admin: 12/08/20 23:24 Dose: 1 mg Documented by: Thiamine HCl 100 mg/ Sodium (Chloride) 101 mls @ 202 mls/hr IV ONETIME ONE Stop: 12/08/20 22:44 Last Admin: 12/08/20 23:23 Dose: Not Given Documented by: Albumin Human (Flexbumin 25%) 50 mls @ 50 mls/hr IV ONETIME ONE Stop: 12/09/20 05:29 Last Admin: 12/09/20 04:54 Dose: 50 mls/hr Documented by: Albumin Human (Flexbumin 25%) 50 mls @ 50 mls/hr IV ONETIME ONE Stop: 12/09/20 07:44 Last Admin: 12/09/20 06:44 Dose: 50 mls/hr Documented by: Vancomycin HCl 1 gm/ Sodium (Chloride) 250 mls @ 250 mls/hr IV Q8H [facility] Last Admin: 12/11/20 01:24 Dose: 250 mls/hr Documented by: Magnesium Sulfate 4 gm/ Premix 100 mls @ 50 mls/hr IV ONETIME ONE Stop: 12/10/20 08:32 Last Admin: 12/10/20 06:49 Dose: 50 mls/hr Documented by: Potassium Chloride 30 meq/ (Sodium Chloride) 265 mls @ 88.333 mls/hr IV ONETIME ONE Stop: 12/10/20 10:44 Last Admin: 12/10/20 07:58 Dose: 88.333 mls/hr Documented by: Potassium Chloride 30 meq/ (Sodium Chloride) 265 mls @ 88.333 mls/hr IV ONETIME ONE Stop: 12/10/20 13:44 Last Admin: 12/10/20 11:57 Dose: 88.333 mls/hr Documented by: Potassium Chloride 40 meq/ (Sodium Chloride) 270 mls @ 68 mls/hr IV ONETIME ONE Stop: 12/10/20 20:28 Last Admin: 12/10/20 16:58 Dose: 68 mls/hr Documented by: Potassium Chloride 40 meq/ (Sodium Chloride) 270 mls @ 68 mls/hr IV ONETIME ONE Stop: 12/11/20 14:13 Last Admin: 12/11/20 11:20 Dose: 68 mls/hr Documented by: Iopamidol (Iopamidol 755 Mg/Ml 100 Ml Bottle) 100 ml IVPUSH ONETIME ONE Stop: 12/09/20 04:16 Last Admin: 12/09/20 10:17 Dose: Not Given Documented by: Lactulose (Lactulose Soln 10 Gm/15 Ml 15 Ml Ud Cup) 20 gm PO ONETIME ONE Stop: 12/09/20 00:54 Last Admin: 12/09/20 01:02 Dose: 20 gm Documented by: Lactulose (Lactulose Soln 10 Gm/15 Ml 15 Ml Ud Cup) 10 gm PO ONETIME ONE Stop: 12/09/20 05:44 Last Admin: 12/09/20 05:59 Dose: 10 gm Documented by: Lactulose (Lactulose Soln 10 Gm/15 Ml 15 Ml Ud Cup) 10 gm PO BID [facility] Last Admin: 12/10/20 08:41 Dose: 10 gm Documented by: Lidocaine HCl (Lidocaine 1% 5 Ml Sdv) 10 ml INJECT ONETIME ONE Stop: 12/09/20 01:02 Last Admin: 12/09/20 02:49 Dose: Not Given Documented by: Phytonadione (Phytonadione 1 Mg/0.5 Ml Syringe) 5 mg PO ONETIME ONE Stop: 12/10/20 20:31 Last Admin: 12/10/20 20:47 Dose: 5 mg Documented by: Sodium Phosphate (Phosphorus #1 250 Mg Tab) 500 mg PO ONETIME ONE Stop: 12/10/20 06:34 Last Admin: 12/10/20 06:48 Dose: 500 mg Documented by: Sodium Phosphate (Phosphorus #1 250 Mg Tab) 500 mg PO BID [facility] Stop: 12/11/20 23:59 Last Admin: 12/11/20 21:00 Dose: 500 mg Documented by: Thiamine HCl (Thiamine 200 Mg/2 Ml Mdv) Confirm Administered Dose 200 mg .ROUTE .STK-MED ONE Stop: 12/08/20 23:17 Last Admin: 12/08/20 23:23 Dose: Not Given Documented by: Thiamine HCl (Thiamine 200 Mg/2 Ml Mdv) 200 mg IVPUSH ONETIME ONE Stop: 12/08/20 23:20 Last Admin: 12/08/20 23:24 Dose: 200 mg Documented by: - Patient Data Lab Results Last 24 hrs: Laboratory Results - last 24 hr 12/11/20 12/11/20 Range/Units 06:25 06:25 Sodium 132 L (136-145) mmol/L Potassium 3.1 L (3.5-5.1) mmol/L Chloride 96 L (98-107) mmol/L Carbon Dioxide 25.2 (21.0-32.0) mmol/L BUN 9 (7.0-18.0) mg/dL Creatinine 0.5 L (0.6-1.0) mg/dL Est Cr Clr Drug Dosing 123.72 mL/min Estimated GFR (MDRD) > 60.0 ml/min Glucose 139 H (74-106) mg/dL Calcium 7.2 L (8.5-10.1) mg/dL Phosphorus 1.4 L (2.6-4.7) mg/dL Magnesium 2.0 (1.8-2.4) mg/dL Total Bilirubin 7.7 H (0.2-1.0) mg/dL AST 58 H (15-37) IU/L ALT 22 (14-63) IU/L Alkaline Phosphatase 58 (46-116) U/L Ammonia 34 (19-54) ug/dL Total Protein 6.3 L (6.4-8.2) g/dL Albumin 2.4 L (3.4-5.0) g/dL Globulin 3.9 (2.6-4.0) g/dL Albumin/Globulin Ratio 0.6 L (0.9-1.6) Result Diagrams: 12/11/20 06:25 12/11/20 06:25 Jignesh Results Last 24 hrs: Microbiology 12/09/20 02:40 Miscellaneous Reference Culture - Preliminary Peritoneal Fluid Gram Stain - Final Sepsis Event Note - Evaluation Sepsis Screening Result: No Definite Risk - Focused Exam Vital Signs: Vital Signs Temp Pulse Resp BP Pulse Ox 12/12/20 04:00 97.6 F 109 H 19 170/73 H 94 L 12/12/20 00:57 97.6 F 80 18 158/77 H 97 12/11/20 21:00 97.9 F 77 17 158/76 H 96 - Problem List & Annotations (1) Ascites SNOMED Code(s): 425989342 Code(s): R18.8 - OTHER ASCITES Status: Acute Priority: High Current Visit: Yes Qualifiers: Ascites type: other type Qualified Code(s): R18.8 - Other ascites (2) Hepatic encephalopathy SNOMED Code(s): 81222817 Code(s): K72.90 - HEPATIC FAILURE, UNSPECIFIED WITHOUT COMA Status: Acute Priority: High Current Visit: Yes (3) Liver failure SNOMED Code(s): 95824146 Code(s): K72.90 - HEPATIC FAILURE, UNSPECIFIED WITHOUT COMA Status: Acute Priority: High Current Visit: Yes Qualifiers: Hepatic coma status: without hepatic coma (4) Pleural effusion, left SNOMED Code(s): 44988649 Code(s): J90 - PLEURAL EFFUSION, NOT ELSEWHERE CLASSIFIED Status: Acute Priority: High Current Visit: Yes (5) Hypokalemia SNOMED Code(s): 95120358 Code(s): E87.6 - HYPOKALEMIA Status: Acute Current Visit: No - My Orders Last 24 Hours: My Active Orders 12/11/20 09:10 Potassium Chloride [Klor-Con M20] 40 meq PO TID 12/11/20 11:43 Consult to Hospice [CONS] Routine 12/11/20 19:15 Code Status [Resuscitation Status] Routine 12/12/20 05:11 AMMONIA VENOUS [CHEM] DAILY CBC WITH AUTO DIFF [HEME] DAILY COMPREHENSIVE METABOLIC PN,CMP [CHEM] DAILY INR,PT,PROTHROMBIN TIME [COAG] DAILY MAGNESIUM [CHEM] DAILY PHOSPHORUS [CHEM] DAILY 12/13/20 05:11 AMMONIA VENOUS [CHEM] DAILY BILIRUBIN TOTAL [CHEM] DAILY CBC WITH AUTO DIFF [HEME] DAILY COMPREHENSIVE METABOLIC PN,CMP [CHEM] DAILY INR,PT,PROTHROMBIN TIME [COAG] DAILY MAGNESIUM [CHEM] DAILY PHOSPHORUS [CHEM] DAILY - Plan Plan:: 59-year-old female admitted for hepatic encephalopathy , patient has liver cirrhosis on imaging likely secondary to previous history of alcohol abuse -Status post paracentesis 9L fluids were obtained. -Patient received some IV infusion of albumin for fluid resuscitation -Lactulose bid. Added Rifaximin 550mg bid for elevated ammonia. -Spironolactone. -Oral vitamin K. -Replete electrolytes including potassium, magnesium and phosphorus. -DuoNeb. Zofran. Protonix. Update: Spoke with and daughter this evening. Family has decided to make the patient DNR/DNI. Family stated they discussed with patient and decided of the family. CODE STATUS: DNR/DNI.
[2020-12-12 07:59] LABS: BLOOD UREA NITROGEN,BUN 7 mg/dL (7.0-18.0); CARBON DIOXIDE,CO2 21.6 mmol/L (21.0-32.0); CHLORIDE,CL 99 mmol/L (98-107); GLUCOSE RANDOM 126 mg/dL (74-106); POTASSIUM,K 3.6 mmol/L (3.5-5.1); SODIUM,NA 133 mmol/L (136-145)
[2020-12-12 08:14] VITALS: BP 168/86; PULSE 101
[2020-12-12] MEDS: Spironolactone 25 MG Tab PO SCH (08:16)
[2020-12-12] MEDS: Rifaximin 550 MG Tab PO SCH (08:16)
[2020-12-12] MEDS: Pantoprazole 40 MG in Sodium Chloride 0.9% 10 ML IV SCH (08:17)
[2020-12-12] MEDS ORDERED: Levofloxacin/Dextrose 5%-Water 750 MG in Premix Bag 1 BAG IV SCH (09:00)
[2020-12-12] MEDS ORDERED: Morphine 2 MG/ML SYRINGE IVPUSH PRN (09:35)
--- NOTE | 2020-12-12 11:12 | PCM.DCSUM1 ---
Discharge Summary - Hospital Course Free Text/Narrative:: 60-year-old female with history of alcoholic liver cirrhosis. Admitted for ascites, hepatic encephalopathy, liver failure and left pleural effusion. Patient presented to the ER with altered mental status and ascites. 9 L of ascitic fluid was drained in the ER. It was negative for SBP. There was also a left pleural effusion. Patient received albumin. Patient was on lactulose and rifaximin for elevated ammonia. Electrolytes including potassium, magnesium and phosphate were repleted. Gastroenterology in [place] was consulted and recommended adding spironolactone and oral vitamin K. Patient was on IV Zosyn and vancomycin. Ammonia continue to trend up. Bilirubin trended up. Patient's mental status slightly better on day 2 but deteriorated overnight. Patient's meld score 22 after reviewing her charts from [facility] which she visited in [facility]. Records also indicated it appears she has a right lung mass. Overall prognosis poor. Spoke to patient's Norma and daughter Cindi extensively about goals of care and CODE STATUS. As per family wishes patient was made DNR/DNI on 12/11/2020. Patient deteriorated overnight and had a fever this morning and tachycardia. and daughter opted for home hospice. Rosemary from home hospice discussed details with family and transport, hospital bed and home oxygen were arranged. Patient discharged to home hospice. - Discharge Data Discharge Date: 12/12/20 Discharge Disposition: DC/Tfer to Hospice - Home 52 Condition: Poor - Referral to Home Health Primary Care Physician: London Yeung MD - Discharge Diagnosis/Problem(s) (1) Ascites SNOMED Code(s): 103598924 ICD Code: R18.8 - OTHER ASCITES Status: Acute Priority: High Current Visit: Yes Qualifiers: Ascites type: other type Qualified Code(s): R18.8 - Other ascites (2) Hepatic encephalopathy SNOMED Code(s): 54349339 ICD Code: K72.90 - HEPATIC FAILURE, UNSPECIFIED WITHOUT COMA Status: Acute Priority: High Current Visit: Yes (3) Liver failure SNOMED Code(s): 70477088 ICD Code: K72.90 - HEPATIC FAILURE, UNSPECIFIED WITHOUT COMA Status: Acute Priority: High Current Visit: Yes Qualifiers: Hepatic coma status: without hepatic coma (4) Pleural effusion, left SNOMED Code(s): 12519261 ICD Code: J90 - PLEURAL EFFUSION, NOT ELSEWHERE CLASSIFIED Status: Acute Priority: High Current Visit: Yes (5) Hypokalemia SNOMED Code(s): 07636375 ICD Code: E87.6 - HYPOKALEMIA Status: Acute Current Visit: No - Patient Summary/Data Consults: Consultations 12/09/20 12:47 Consult to Physician [CONS] Routine 12/11/20 11:43 Consult to Hospice [CONS] Routine - Patient Instructions Other/Special Instructions: Discharge: Home Hospice. Hospice will advise regarding home medications and support. - Discharge Plan *PRESCRIPTION DRUG MONITORING PROGRAM REVIEWED*: Not Applicable *COPY OF PRESCRIPTION DRUG MONITORING REPORT IN PATIENT GISEL: Not Applicable Home Medications: Home Meds ClonazePAM [KlonoPIN] 0.5 mg PO BID PRN 06/11/15 [History] atenoloL [Atenolol] 50 mg PO BID 06/11/15 [History] buPROPion [Wellbutrin XL] 150 mg PO DAILY 10/25/16 [History] atorvaSTATin Calcium [Atorvastatin Calcium] 20 mg DAILY 12/27/17 [History] Ondansetron [Zofran Odt] 8 mg PO Q6H PRN 3 Days #12 tab.rapdis 02/06/19 [Rx] levoFLOXacin [Levaquin] 750 mg PO DAILY 5 Days #5 tablet 02/06/19 [Rx] Furosemide 40 mg PO DAILY 12/09/20 [History] Pantoprazole [ProTONIX] 40 mg PO DAILY 12/09/20 [History] Spironolactone [Aldactone] 50 mg PO DAILY 12/09/20 [History] Oxygen Therapy Mode: Nasal Cannula Oxygen Flow Rate (L/min): 1 Patient Handouts: Hepatic Encephalopathy, Liver Failure, Ascites, Palliative Care, Pleural Effusion Referrals: London Yeung MD [Primary Care Provider] - - Discharge Summary/Plan Comment DC Time >30 min.: Yes Total # of Minutes for Discharge Time: 1.5hours. - General Info Admission Dx/Problem (Free Text: Admission Diagnosis/Problem Admission Diagnosis/Problem Ascites - Review of Systems General: Reports: Other (Unable to obtain.) - Patient Data Vitals - Most Recent: Last Vital Signs Temp 100.4 F 12/12/20 08:13 Pulse 101 H 12/12/20 08:13 Resp 18 12/12/20 08:13 BP 168/86 H 12/12/20 08:13 Pulse Ox 96 12/12/20 08:13 Weight - Most Recent: 143 lb 8.335 oz I&O - Last 24 hours: Intake & Output 12/11/20 12/12/20 12/12/20 22:59 06:59 14:59 Intake Total 1410 1050 Output Total 2 600 Balance 1408 450 Lab Results - Last 24 hrs: Laboratory Results - last 24 hr 12/12/20 12/12/20 12/12/20 Range/Units 07:05 07:15 07:15 WBC 13.96 H (4.0-11.0) K/uL RBC 3.05 L (4.30-5.90) M/uL Hgb 10.6 L (12.0-16.0) g/dL Hct 30.9 L (36.0-46.0) % MCV 101.3 H (80.0-98.0) fL MCH 34.8 H (27.0-32.0) pg MCHC 34.3 (31.0-37.0) g/dL RDW Std Deviation 53.1 (28.0-62.0) fl RDW Coeff of Haley 15 (11.0-15.0) % Plt Count 62 L (150-400) K/uL MPV 10.30 (7.40-12.00) fL Neut % (Auto) 85.7 H (48.0-80.0) % Lymph % (Auto) 6.9 L (16.0-40.0) % Hemphill % (Auto) 7.2 (0.0-15.0) % Eos % (Auto) 0.1 (0.0-7.0) % Baso % (Auto) 0.1 (0.0-1.5) % Neut # (Auto) 12.0 H (1.4-5.7) K/uL Lymph # (Auto) 1.0 (0.6-2.4) K/uL Hemphill # (Auto) 1.0 H (0.0-0.8) K/uL Eos # (Auto) 0.0 (0.0-0.7) K/uL Baso # (Auto) 0.0 (0.0-0.1) K/uL Nucleated RBC % 0.0 /100WBC Nucleated RBCs # 0 K/uL INR 1.63 Sodium (136-145) mmol/L Potassium (3.5-5.1) mmol/L Chloride (98-107) mmol/L Carbon Dioxide (21.0-32.0) mmol/L BUN (7.0-18.0) mg/dL Creatinine (0.6-1.0) mg/dL Est Cr Clr Drug Dosing mL/min Estimated GFR (MDRD) ml/min Glucose (74-106) mg/dL Calcium (8.5-10.1) mg/dL Phosphorus (2.6-4.7) mg/dL Magnesium (1.8-2.4) mg/dL Total Bilirubin (0.2-1.0) mg/dL AST (15-37) IU/L ALT (14-63) IU/L Alkaline Phosphatase (46-116) U/L Ammonia (19-54) ug/dL Total Protein (6.4-8.2) g/dL Albumin (3.4-5.0) g/dL Globulin (2.6-4.0) g/dL Albumin/Globulin Ratio (0.9-1.6) Vancomycin Trough 28.6 H (5.0-10.0) ug/mL 12/12/20 12/12/20 Range/Units 07:15 07:15 WBC (4.0-11.0) K/uL RBC (4.30-5.90) M/uL Hgb (12.0-16.0) g/dL Hct (36.0-46.0) % MCV (80.0-98.0) fL MCH (27.0-32.0) pg MCHC (31.0-37.0) g/dL RDW Std Deviation (28.0-62.0) fl RDW Coeff of Haley (11.0-15.0) % Plt Count (150-400) K/uL MPV (7.40-12.00) fL Neut % (Auto) (48.0-80.0) % Lymph % (Auto) (16.0-40.0) % Hemphill % (Auto) (0.0-15.0) % Eos % (Auto) (0.0-7.0) % Baso % (Auto) (0.0-1.5) % Neut # (Auto) (1.4-5.7) K/uL Lymph # (Auto) (0.6-2.4) K/uL Hemphill # (Auto) (0.0-0.8) K/uL Eos # (Auto) (0.0-0.7) K/uL Baso # (Auto) (0.0-0.1) K/uL Nucleated RBC % /100WBC Nucleated RBCs # K/uL INR Sodium 133 L (136-145) mmol/L Potassium 3.6 (3.5-5.1) mmol/L Chloride 99 (98-107) mmol/L Carbon Dioxide 21.6 (21.0-32.0) mmol/L BUN 7 (7.0-18.0) mg/dL Creatinine 0.7 (0.6-1.0) mg/dL Est Cr Clr Drug Dosing 88.37 mL/min Estimated GFR (MDRD) > 60.0 ml/min Glucose 126 H (74-106) mg/dL Calcium 7.3 L (8.5-10.1) mg/dL Phosphorus 1.2 L (2.6-4.7) mg/dL Magnesium 1.8 (1.8-2.4) mg/dL Total Bilirubin 8.6 H (0.2-1.0) mg/dL AST 52 H (15-37) IU/L ALT 20 (14-63) IU/L Alkaline Phosphatase 64 (46-116) U/L Ammonia 82 H (19-54) ug/dL Total Protein 6.4 (6.4-8.2) g/dL Albumin 2.4 L (3.4-5.0) g/dL Globulin 4.0 (2.6-4.0) g/dL Albumin/Globulin Ratio 0.6 L (0.9-1.6) Vancomycin Trough (5.0-10.0) ug/mL EMERITA Results - Last 24 hrs: Microbiology 12/09/20 02:40 Miscellaneous Reference Culture - Preliminary Peritoneal Fluid Gram Stain - Final Med Orders - Current: Current Medications Albuterol/Ipratropium (Albuterol/Ipratropium 3.0-0.5 Mg/3 Ml Neb Soln) 3 ml NEB Q4HRRT PRN PRN Reason: Shortness Of Breath/wheezing Piperacillin Sod/Tazobactam (Sod 3.375 gm/ Sodium Chloride) 50 mls @ 100 mls/hr IV Q8H [facility] Last Admin: 12/12/20 08:17 Dose: 100 mls/hr Documented by: Pantoprazole Sodium 40 mg/ (Sodium Chloride) 10 mls @ 300 mls/hr IV Q12HR [facility] Last Admin: 12/12/20 08:17 Dose: 300 mls/hr Documented by: Vancomycin HCl 1.25 gm/ Premix 250 mls @ 166.667 mls/hr IV Q8H [facility] Levofloxacin/Dextrose 750 mg/ (Premix) 150 mls @ 100 mls/hr IV Q24H [facility] Lactulose (Lactulose Soln 10 Gm/15 Ml 15 Ml Ud Cup) 10 gm PO TID [facility] Last Admin: 12/12/20 06:05 Dose: 10 gm Documented by: Morphine Sulfate (Morphine 2 Mg/Ml Syringe) 1 mg IVPUSH Q1H PRN PRN Reason: Pain (severe 7-10) Last Admin: 12/12/20 09:58 Dose: 1 mg Documented by: Ondansetron HCl (Ondansetron 4 Mg/2 Ml Sdv) 4 mg IVPUSH Q4H PRN PRN Reason: Nausea/Vomiting Phytonadione (Phytonadione 10 Mg/1 Ml Amp) 5 mg PO DAILY [facility] Stop: 12/17/20 09:01 Potassium Chloride (Potassium Chloride 20 Meq Tab.Er) 40 meq PO TID [facility] Stop: 12/12/20 12:00 Last Admin: 12/12/20 06:04 Dose: 40 meq Documented by: Rifaximin (Rifaximin 550 Mg Tab) 550 mg PO BID [facility] Last Admin: 12/12/20 08:16 Dose: 550 mg Documented by: Sodium Chloride (Sodium Chloride 0.9% 10 Ml Syringe) 10 ml FLUSH ASDIRECTED PRN PRN Reason: Keep Vein Open Sodium Chloride (Sodium Chloride 0.9% 2.5 Ml Syringe) 2.5 ml FLUSH ASDIRECTED PRN PRN Reason: Keep Vein Open Sodium Phosphate (Phosphorus #1 250 Mg Tab) 250 mg PO QID [facility] Spironolactone (Spironolactone 25 Mg Tab) 50 mg PO BID [facility] Last Admin: 12/12/20 08:16 Dose: 50 mg Documented by: Vancomycin HCl (Pharmacy To Dose - Vancomycin) 1 dose .XX ASDIRECTED BRANDO Discontinued Medications Folic Acid (Folic Acid 50 Mg/10 Ml Mdv) 1 mg IV STAT STA Stop: 12/08/20 22:44 Last Admin: 12/08/20 23:24 Dose: 1 mg Documented by: Thiamine HCl 100 mg/ Sodium (Chloride) 101 mls @ 202 mls/hr IV ONETIME ONE Stop: 12/08/20 22:44 Last Admin: 12/08/20 23:23 Dose: Not Given Documented by: Albumin Human (Flexbumin 25%) 50 mls @ 50 mls/hr IV ONETIME ONE Stop: 12/09/20 05:29 Last Admin: 12/09/20 04:54 Dose: 50 mls/hr Documented by: Albumin Human (Flexbumin 25%) 50 mls @ 50 mls/hr IV ONETIME ONE Stop: 12/09/20 07:44 Last Admin: 12/09/20 06:44 Dose: 50 mls/hr Documented by: Vancomycin HCl 1 gm/ Sodium (Chloride) 250 mls @ 250 mls/hr IV Q8H [facility] Last Admin: 12/11/20 01:24 Dose: 250 mls/hr Documented by: Magnesium Sulfate 4 gm/ Premix 100 mls @ 50 mls/hr IV ONETIME ONE Stop: 12/10/20 08:32 Last Admin: 12/10/20 06:49 Dose: 50 mls/hr Documented by: Potassium Chloride 30 meq/ (Sodium Chloride) 265 mls @ 88.333 mls/hr IV ONETIME ONE Stop: 12/10/20 10:44 Last Admin: 12/10/20 07:58 Dose: 88.333 mls/hr Documented by: Potassium Chloride 30 meq/ (Sodium Chloride) 265 mls @ 88.333 mls/hr IV ONETIME ONE Stop: 12/10/20 13:44 Last Admin: 12/10/20 11:57 Dose: 88.333 mls/hr Documented by: Potassium Chloride 40 meq/ (Sodium Chloride) 270 mls @ 68 mls/hr IV ONETIME ONE Stop: 12/10/20 20:28 Last Admin: 12/10/20 16:58 Dose: 68 mls/hr Documented by: Vancomycin HCl 1.5 gm/ Premix 300 mls @ 200 mls/hr IV Q8H [facility] Last Admin: 12/12/20 09:47 Dose: Not Given Documented by: Potassium Chloride 40 meq/ (Sodium Chloride) 270 mls @ 68 mls/hr IV ONETIME ONE Stop: 12/11/20 14:13 Last Admin: 12/11/20 11:20 Dose: 68 mls/hr Documented by: Iopamidol (Iopamidol 755 Mg/Ml 100 Ml Bottle) 100 ml IVPUSH ONETIME ONE Stop: 12/09/20 04:16 Last Admin: 12/09/20 10:17 Dose: Not Given Documented by: Lactulose (Lactulose Soln 10 Gm/15 Ml 15 Ml Ud Cup) 20 gm PO ONETIME ONE Stop: 12/09/20 00:54 Last Admin: 12/09/20 01:02 Dose: 20 gm Documented by: Lactulose (Lactulose Soln 10 Gm/15 Ml 15 Ml Ud Cup) 10 gm PO ONETIME ONE Stop: 12/09/20 05:44 Last Admin: 12/09/20 05:59 Dose: 10 gm Documented by: Lactulose (Lactulose Soln 10 Gm/15 Ml 15 Ml Ud Cup) 10 gm PO BID [facility] Last Admin: 12/10/20 08:41 Dose: 10 gm Documented by: Lidocaine HCl (Lidocaine 1% 5 Ml Sdv) 10 ml INJECT ONETIME ONE Stop: 12/09/20 01:02 Last Admin: 12/09/20 02:49 Dose: Not Given Documented by: Phytonadione (Phytonadione 1 Mg/0.5 Ml Syringe) 5 mg PO ONETIME ONE Stop: 12/10/20 20:31 Last Admin: 12/10/20 20:47 Dose: 5 mg Documented by: Sodium Phosphate (Phosphorus #1 250 Mg Tab) 500 mg PO ONETIME ONE Stop: 12/10/20 06:34 Last Admin: 12/10/20 06:48 Dose: 500 mg Documented by: Sodium Phosphate (Phosphorus #1 250 Mg Tab) 500 mg PO BID [facility] Stop: 12/11/20 23:59 Last Admin: 12/11/20 21:00 Dose: 500 mg Documented by: Thiamine HCl (Thiamine 200 Mg/2 Ml Mdv) Confirm Administered Dose 200 mg .ROUTE .STK-MED ONE Stop: 12/08/20 23:17 Last Admin: 12/08/20 23:23 Dose: Not Given Documented by: Thiamine HCl (Thiamine 200 Mg/2 Ml Mdv) 200 mg IVPUSH ONETIME ONE Stop: 12/08/20 23:20 Last Admin: 12/08/20 23:24 Dose: 200 mg Documented by: - Exam General: Reports: Moderate Distress, Lethargic, Obtunded. Denies: Alert, Oriented HEENT: Reports: Scleral Icterus Neck: Reports: Supple Lungs: Reports: Crackles Cardiovascular: Reports: Regular Rhythm, Tachycardia GI/Abdominal Exam: Distended Discharge Operative/Procedures - Procedures Performed I&D Site: Paracentesis
[2020-12-12] MEDS ORDERED: VANCOmycin 1.25 GM/250 ML 1.25 GM in Premix Bag 1 BAG IV SCH (14:00)
[2020-12-12] MEDS: Phosphorus #1 250 MG Tab PO SCH (14:44)
== END 2020-12-12 13:15 | disposition hospice, home (50) | DRG 280 ==
LOC: MW.ED 21:44 → MW.MS 12-09 05:38
PROVIDERS: ADMIT Student in an Organized Health Care Education/Training Program; ATTEND Student in an Organized Health Care Education/Training Program
PROC: 0W9G3ZZ Drainage of Peritoneal Cavity, Percutaneous Approach (ICD-10-PCS; principal; 2020-12-09)
DX: K70.31 Alcoholic cirrhosis of liver with ascites (principal); K72.00 Acute and subacute hepatic failure without coma; J90 Pleural effusion, not elsewhere classified; E87.6 Hypokalemia; Z66 Do not resuscitate; K21.9 Gastro-esophageal reflux disease without esophagitis; R91.8 Other nonspecific abnormal finding of lung field; M79.7 Fibromyalgia; F41.9 Anxiety disorder, unspecified; F32.A Depression, unspecified; F17.200 Nicotine dependence, unspecified, uncomplicated; Z20.822 Contact with and (suspected) exposure to COVID-19; Z51.5 Encounter for palliative care; Z88.5 Allergy status to narcotic agent; Z91.012 Allergy to eggs; Z79.899 Other long term (current) drug therapy; Z90.710 Acquired absence of both cervix and uterus; Z90.49 Acquired absence of other specified parts of digestive tract; Z95.5 Presence of coronary angioplasty implant and graft
CPT/HCPCS: 36415; 49083; 71260; 71260-26; 74177; 74177-26; 80053; 80202; 82140; 82150; 82447; 82945; 82947; 83690; 83735; 84100; 84157; 84315; 85025; 85610; 85730; 87070; 87205; 89050; 93005; 96365; 96375; 99285-25; A9270-GY; C9113; J2270; J2543; J3370; J3411; J3430; J3475; J3480; J7050; P9047; U0002